=== PATIENT | male | born 1960 | race Caucasian/White ===

== ENCOUNTER 2017-04-16 13:15 | Emergency (ER) | payer MEDICARE, MEDICAID ==
[2017-04-16] MEDS ORDERED: Dexamethasone 10 MG/ML VIAL ONE (16:24)
--- NOTE | 2017-04-16 17:51 | RAD ---
FRONTAL VIEW CHEST 04/16/17 COMPARISON: 07/19/16 INDICATION: Cough. FINDINGS: The cardiac silhouette is prominent. There is no consolidation or effusion. Mild interstitial promine nce is present. Osseous degenerative change present. IMPRESSION: 1. Prominent cardiac silhouette. 2. Mild interstitial prominence could relate to edema or interstitial lung disease. Correlate cl inically. POS: [facility]
--- NOTE | 2017-04-24 17:46 | EKG ---
Test Reason : Blood Pressure : / mmHG Vent. Rate : 057 BPM Atrial Rate : 057 BPM P-R Int : 196 ms QRS Dur : 102 ms QT Int : 428 ms P-R-T Axes : 062 -07 015 degrees QTc Int : 416 ms Sinus bradycardia with Premature atrial complexes Incomplete right bundle branch block Borderline ECG Confirmed by ALLY STEWARD, JULIANNA ([id number]), editor index RIN BLANCO ([id number]) on 04/24/2017 5:45:50 PM Referred By: Confirmed By:JULIANNA CANALES MD
== END 2017-04-16 18:05 | disposition home or self-care (01) ==
LOC: ERS 13:15
DX: J20.9 Acute bronchitis, unspecified (principal); E11.9 Type 2 diabetes mellitus without complications; F32.9 Major depressive disorder, single episode, unspecified; F41.9 Anxiety disorder, unspecified; I10 Essential (primary) hypertension; I48.91 Unspecified atrial fibrillation
CPT/HCPCS: 71045; 93005; 94640; 96372; J1100; J7620

== ENCOUNTER 2017-08-11 21:46 | Inpatient (IN) | payer MEDICARE, MEDICAID ==
[~2017-08-11 21:46] MED LIST: ISOVUE-370 76%-LOCM 1 ML ONE
[2017-08-11] MEDS ORDERED: Promethazine HCl 25 MG/ML VIAL ONE (22:17)
[2017-08-11] MEDS ORDERED: diphenhydrAMINE 50 MG/ML VIAL ONE (22:18)
[2017-08-11] MEDS ORDERED: methylPREDNISolone Sod Succ/PF 125 MG/2 ML VIAL ONE (22:18)
[2017-08-11] MEDS ORDERED: Water For Inject, Bacteriostat 30 ML ONE (22:20)
[2017-08-11 22:23] LABS: #Basophils 0.1 thou/uL (0.0-0.2); #Eosinphils 0.3 thou/uL (0.0-0.7); #Lymphocytes 1.6 thou/uL (1.20-3.40); #Neutrophils 9.2 thou/uL (1.40-6.50); %Basophils 0.4 % (0.0-1.0); %Eosinophils 2.4 % (0.0-10.0); %Lymphocytes 12.9 % (21.0-51.0); %Monocytes 8.4 % (0.0-10.0); %Neutrophils 75.9 % (42.0-75.0); Hemoglobin 11.5 g/dL (14.0-18.0); Mean Corpuscular HGB CONC 33.4 g/dL (32.0-36.0); Mean Corpuscular Hemoglobin 29.7 pg (27.0-31.0); Mean Corpuscular Volume 89.1 fl (80.0-94.0); Mean Platelet Volume 9.3 fL (7.4-10.4); Platelet Count 208 thou/uL (130-400); RBC Distribution Width 14.3 % (11.5-14.5); Red Blood Cell (RBC) Count 3.86 mill/uL (4.70-6.10); White Blood Cell (WBC) Count 12.1 thou/uL (4.8-10.8)
--- NOTE | 2017-08-11 22:28 | RAD ---
AP CHEST: 08/11/17 HISTORY: Shortness of breath. COMPARISON: 04/16/17. FINDINGS/IMPRESSION: Heart size is upper normal and table. Vascular markings upper normal and stable. No infiltrate, effus ion, or other acute process. No interval change noted. POS: [facility]
--- NOTE | 2017-08-11 22:30 | RAD ---
NECK FOR SOFT TISSUES: 08/11/17 Two views. HISTORY: Swelling of tongue according to history. On the lateral view, the epiglottis appears mildly edematous. This does appear to produce some airway narrowing at the epiglottis. Degenerative changes in the spine. No other abnormality. Prevertebral soft tissues normal. IMPRESSION: Evidence of mildly edematous epiglottis. POS: [facility]
[2017-08-11 22:43] LABS: ALT (SGPT) 19 U/L (8-55); AST (SGOT) 17 U/L (5-34); Alkaline Phosphatase 68 U/L (40-150); Anion Gap 14 mmol/L (10-20); BUN (Urea Nitrogen) 19 mg/dL (8.4-25.7); Bilirubin, Total 0.4 mg/dL (0.2-1.2); CK (CPK) 300 U/L (30-200); Calc. Creatinine Clearance 0 mL/min (70-130); Calcium 8.6 mg/dL (7.8-10.44); Carbon Dioxide 27 mmol/L (22-29); Chloride 102 mmol/L (98-107); Estimated GFR-MDRD 57; Globulin 3.5 g/dL (2.4-3.5); Glucose 143 mg/dL (70-105); Potassium 3.4 mmol/L (3.5-5.1); Protein, Total 7.5 g/dL (6.0-8.3); Sodium 140 mmol/L (136-145)
--- NOTE | 2017-08-12 00:29 | PDOC.FPRHP ---
- History of Present Illness Chief Complaint: bloody vomit History of Present Illness: This is a 56 yo M being admitted for epiglottitis who comes in for cheif complaint of bloody vomit which per his report started suddenly at 1830 tonight. He has a PMH including HTN, HLD, afib, and GERD. Patient does have an intellectual delay. Per ED physician's report, when the patient presented to the ED he has notable stridor and increased work of breath. His tongue was swollen to the roof of his mouth. Patient denies being more than "a little" short of breath. ED physician state he was able to identify a small knick where the patient bit is tongue which seems to be the source of the bleeding. The patient states nothing like this has happened before. He denies any new foods or medications recently. He is on lisinopril. He denies being around anyone sick. Denies fevers, nausea, vomiting, or diarrhea prior to 1830 tonight. He states he has had some chills and sweats since this occurred. ED Course: 125 methylprednisolone benadryl racemic epi levoquin Initially patient could not speak. After steroids and racemic epi patient was able to speak. At time of author's exam patient was speaking easily in complete sentences. Soft tissue x-ray showed epiglottis. CT neck pending. ENT states no need to scope at this time but should be monitored closely. Anesthesia is made aware of difficult airway. - Allergies/Adverse Reactions Allergies Allergy/AdvReac Type Severity Reaction Status Date / Time Penicillins Allergy Unknown Verified 08/07/12 02:30 - Home Medications Medication Instructions Recorded Confirmed Type Apresoline 100 mg PO TID 08/07/12 08/07/12 History Bupropion 150 mg PO BID 08/07/12 08/07/12 History Buspirone HCl 5 mg PO BID 08/07/12 08/07/12 History Coreg 50 mg PO BID 08/07/12 08/07/12 History Lisinopril 40 mg PO BID 08/07/12 08/07/12 History Pravastatin Sodium 20 mg PO DAILY 08/07/12 08/07/12 History Tricor 48 mg PO DAILY 08/07/12 08/07/12 History Aspirin [Aspirin Chewable] 81 mg PO DAILY 08/09/12 08/09/12 History Loratadine [Alavert] 10 mg PO DAILY 08/09/12 08/09/12 History Pantoprazole [Protonix] 40 mg PO DAILY 08/09/12 08/09/12 History metFORMIN HCl 500 mg PO BID-WM 08/09/12 08/09/12 History - History PMHx: HTN, HLD, DM, Afib, Right bundle branch block, GERD PSHx: afib ablation x3, cath x2 with no stents, echo 3 days ago w/ Dr. Zamudio FHx: adopted Social: no smoking, alcohol, or drugs - Review of Systems General: reports: fever/chills (chills no fever). denies: fatigue Eyes: denies: vision changes ENT: denies: nasal congestion Respiratory: reports: shortness of breath. denies: cough, exercise intolerance Cardiovascular: denies: chest pain, palpitation, edema, orthopnea Gastrointestinal: reports: vomiting ("bloody vomit"). denies: nausea, diarrhea , constipation, abdominal pain Genitourinary: denies: incontinence, dysuria Skin: denies: rashes Musculoskeletal: denies: pain Neurological: denies: numbness, weakness Psychological: denies: anxiety, depression - Vital signs BP: 173/95 HR: 72 RR: 17 Tmax: 98.3 Pox: 96% on RA, 100% on 2L Wt: 113.4 - Physical Exam Constitutional: NAD, awake, alert and oriented -Constitutional: speaking in complete sentences, no increased work of breathing HEENT: normocephalic and atraumatic, PERRLA -HEENT: tongue is swollen, fills mouth, does not touch roof of mouth, unable to appreciate tonsils, neck is noticably swollen to palpatin, non-tender, not warm to touch, no redness Heart: RRR -Heart: 2/6 murmur noted Lungs: CTAB, no respiratory distress, good air movement, no rales/rhonchi, no wheezing -Lungs: not distressed, clear bilaterally at time of author's exam Abdomen: soft, non-tender, bowel sounds present Musculoskeletal: normal structure, ROM grossly normal Neurological: no focal deficit Skin: no rash/lesions, capillary refill <2 seconds FMR H&P: Results - Labs Result Diagrams: 08/11/17 22:18 08/11/17 22:18 Lab results: WBC 12.1 thou/uL (4.8-10.8) H 08/11/17 22:18 Hgb 11.5 g/dL (14.0-18.0) L 08/11/17 22:18 Hct 34.4 % (42.0-52.0) L 08/11/17 22:18 MCV 89.1 fl (80.0-94.0) 08/11/17 22:18 Plt Count 208 thou/uL (130-400) 08/11/17 22:18 Neutrophils % 75.9 % (42.0-75.0) H 08/11/17 22:18 Sodium 140 mmol/L (136-145) 08/11/17 22:18 Potassium 3.4 mmol/L (3.5-5.1) L 08/11/17 22:18 Chloride 102 mmol/L (98-107) 08/11/17 22:18 Carbon Dioxide 27 mmol/L (22-29) 08/11/17 22:18 BUN 19 mg/dL (8.4-25.7) 08/11/17 22:18 Creatinine 1.30 mg/dL (0.6-1.3) 08/11/17 22:18 Glucose 143 mg/dL (70-105) H 08/11/17 22:18 Calcium 8.6 mg/dL (7.8-10.44) 08/11/17 22:18 Total Bilirubin 0.4 mg/dL (0.2-1.2) 08/11/17:18 AST 17 U/L (5-34) 08/11/17:18 ALT 19 U/L (8-55) 08/11/17 22:18 Alkaline Phosphatase 68 U/L (40-150) 08/11/17 22:18 Creatine Kinase 300 U/L (30-200) H 08/11/17 22:18 Serum Total Protein 7.5 g/dL (6.0-8.3) 08/11/17 22:18 Albumin 4.0 g/dL (3.5-5.0) 08/11/17 22:18 FMR H&P: A/P - Problem List (1) Epiglottitis Current Visit: Yes Status: Acute Code(s): J05.10 - ACUTE EPIGLOTTITIS WITHOUT OBSTRUCTION (2) Swollen tongue Current Visit: Yes Status: Acute Code(s): R22.0 - LOCALIZED SWELLING, MASS AND LUMP, HEAD (3) HTN (hypertension) Current Visit: Yes Status: Acute Code(s): I10 - ESSENTIAL (PRIMARY) HYPERTENSION (4) HLD (hyperlipidemia) Current Visit: Yes Status: Acute Code(s): E78.5 - HYPERLIPIDEMIA, UNSPECIFIED (5) Obesity Current Visit: Yes Status: Acute Code(s): E66.9 - OBESITY, UNSPECIFIED (6) Atrial fib/flutter, transient Current Visit: Yes Status: Acute Code(s): LKW0981 - (7) GERD (gastroesophageal reflux disease) Current Visit: Yes Status: Acute Code(s): K21.9 - GASTRO-ESOPHAGEAL REFLUX DISEASE WITHOUT ESOPHAGITIS (8) Intellectual disability Current Visit: Yes Status: Acute Code(s): F79 - UNSPECIFIED INTELLECTUAL DISABILITIES - Plan # Epiglottitis - noted on soft tissue x-ray - CT read pending, no abscess noted on author's read - vanc, rocephin - blood cultures - Methylprednisolone 125mg q24 hrs - racemic epi q3 hrs PRN - IV benadryl 50mg q3 hrs scheduled overnight - Spoke to Dr. Clifford ENT from ED, states no need to scope now, monitor closely will see in the AM - Anesthesia made aware of difficult airway # Impaired airway 2/2 Swollen tongue - likely 2/2 to above - breathing comfortably at this time - differential includes: allergy, angioedema 2/2 lisinopril, infection - likely 2/2 infection - ENT to eval in morning # HTN - hydralazine PRN - holding home meds 2/2 NPO # HLD - holding home meds 2/2 NPO # DM - SSI for now - holding home metformin, glipizide 2/2 NPO # A fib s/p ablation - monitor - RRR at time of exam, not on anticoagulant - follows w/ Dr. Zamudio, had appointment 3 days ago # Gerd - hold home meds for now Fluids: NS 150ml/hr Diet: NPO Code: full Dispo: >48 hours FMR H&P: Upper Level - Pertinent history 56 yo M with PMH significant for HTN, mild MR, chronic A. fib/flutter s/p ablation presents with bloody sputum. Patient states he bit his tongue and started coughing up blood. Patient was audibly stridorous in the ER on arrival , was given steroids, racemic epinephrine, and benadryl and appeared to improve. Does not appear to currently be on any blood thinners. Patient is on lisinopril currently. Lateral neck film showed epiglottitis. - Pertinent findings PE: Gen: [place] male in NAD HEENT: PERRL, EOMI, MMM, enlarged tongue, unable to visualize tonsils CV: RRR no murmurs, distal pulses intact Pulm: CTAB, no wheezes or rhonchi Abd: soft, NT/ND, BS present, no masses Ext: no cyanosis or edema MSK: OAK[place] well, no joint or muscle pain or swelling Neuro: CN 2-12 intact, normal sensation Skin: no rashes or lesions Psych: A&O x3, appropriate in conversation - Plan Date/Time: 08/12/17 0028 56 yo M here with neck and tongue swelling. 1) Epiglottitis: Admit to IMCU. ENT consulted in ER, will see him in the AM unless things worsen acutely overnight. Monitor saturations and airway noises. Continue solumedrol daily, racemic epi and benadryl prn. 2) Angioedema: Discontinue lisinopril. Could also possibly be due to biting his tongue earlier this evening. 3) HTN: Hold all po home meds at this time. 4) HLD: as above 5) Chronic A. fib/flutter: as above, monitor on tele, currently rate-controlled I, [Ashwin Tucker], have evaluated this patient and agree with findings/plan as outlined by regulatory intern resident. Pertinent changes/additions are listed here.
[2017-08-12] MEDS ORDERED: Sodium Chloride 0.9% 1,000 ML IV SCH (01:19)
[2017-08-12] MEDS ORDERED: Acetaminophen 325 MG TAB PO PRN (01:19)
[2017-08-12] MEDS ORDERED: Ondansetron ODT 4 MG TAB SL PRN (01:19)
[2017-08-12] MEDS ORDERED: Ondansetron HCl/PF 4 MG/2 ML Vial IVP PRN (01:19)
[2017-08-12] MEDS ORDERED: diphenhydrAMINE 50 MG in Sodium Chloride 0.9% 50 ML IVPB SCH (01:45)
[2017-08-12] MEDS ORDERED: HumaLOG 300 UNITS/3 ML VIAL SC PRN (01:45)
[2017-08-12] MEDS ORDERED: Dextrose 5% in Water 1,000 ML IV PRN (01:45)
[2017-08-12] MEDS ORDERED: hydrALAZINE 20 MG/ML VIAL SLOW IVP PRN (01:45)
[2017-08-12] MEDS ORDERED: Dextrose 50% Abboject 50 ML SYRINGE SLOW IVP PRN (01:45)
[2017-08-12] MEDS ORDERED: Enoxaparin Sodium 40 MG/0.4 ML SYRINGE SC SCH (01:45)
[2017-08-12 01:48] VITALS: BMI 41.5
[2017-08-12] MEDS: Sodium Chloride 0.9% 1,000 ML IV SCH ×4 (02:12→20:52)
[2017-08-12] MEDS: diphenhydrAMINE 50 MG/ML VIAL IVP SCH ×3 (02:12→09:51)
[2017-08-12] MEDS ORDERED: cefTRIAXone\\ROCEPHIN 1 GM in Sodium Chloride 0.9% 100 ML IVPB SCH (03:00)
[2017-08-12 05:20] LABS: Anion Gap 14 mmol/L (10-20); BUN (Urea Nitrogen) 17 mg/dL (8.4-25.7); Calc. Creatinine Clearance 127 mL/min (70-130); Calcium 8.5 mg/dL (7.8-10.44); Carbon Dioxide 26 mmol/L (22-29); Chloride 101 mmol/L (98-107); Estimated GFR-MDRD 62; Glucose 208 mg/dL (70-105); Potassium 3.3 mmol/L (3.5-5.1); Sodium 138 mmol/L (136-145)
--- NOTE | 2017-08-12 06:25 | PDOC.EVN ---
Event Note - Event Note Event Note: 0340 Stopped by to check on patient Sleeping comfortable, not snoring or stridorous Easily aroused, states he feels comfortable CTAB, no increased work of breathing Tongue appeared same or slightly larger than in ED Asked for RT to be paged to repeat epi neb 0620 Stopped by to check on patient sleeping comfortably, not snoring or stridorous easily arousable, states he feels comfortable, states he feels swelling is improving tongue appears slightly smaller than last exam, still not able to visualize tonsils but able to see more of palate CTAB, no stridor or increased work of breathing
[2017-08-12] MEDS ORDERED: methylPREDNISolone Sod Succ/PF 125 MG/2 ML VIAL IVP SCH ×3 (06:47→09:00)
[2017-08-12 06:59] LABS: Band 6 % (5-11); Hemoglobin 11.6 g/dL (14.0-18.0); Lymphocytes 8 % (21-51); MDiff Complete? YES; Mean Corpuscular HGB CONC 33.9 g/dL (32.0-36.0); Mean Corpuscular Hemoglobin 30.1 pg (27.0-31.0); Mean Corpuscular Volume 88.9 fl (80.0-94.0); Mean Platelet Volume 9.5 fL (7.4-10.4); Monocytes 2 % (0-10); Neutrophil 84 % (42-75); PLT Morphology Comment Appears Adequate; Platelet Count 194 thou/uL (130-400); RBC Distribution Width 14.2 % (11.5-14.5); RBC Morphology Normal; Red Blood Cell (RBC) Count 3.85 mill/uL (4.70-6.10); White Blood Cell (WBC) Count 16.2 thou/uL (4.8-10.8)
--- NOTE | 2017-08-12 07:21 | CT ---
CT NECK WITH CONTRAST: Multiple axial tomograms were obtained through the neck with IV enhancement. INDICATION: Tongue and neck swelling. FINDINGS: Parotid glands appear unremarkable. The submandibular glands show mild heterogeneity and surrounding edema. There is subcutaneous edema seen in the midline of the neck below the mandible. The nasopharynx shows prominence of the pharyngeal tonsils. The oropharynx is obscured by dental appliance artifact and the tongue cannot be well evaluated. Wal deyer's ring appears mildly prominent at the level of the palatine tonsils. The base of the tongue i ncluding the genu glossis and genu hyoid and mylohyoid muscles appear unremarkable; however, there is edema seen within the planes of these muscles. There is also edema seen in the hypopharynx with edema seen in the region of the vallecula. The epig lottis is edematous. There is edema in the region of the aryepiglottic folds. Pyriform sinuses are e ffaced. The airway is narrowed at this location. The parapharyngeal space shows some mild edema at the level of the oropharynx and hypopharynx. Review of the lymph node levels shows no evidence of significant adenopathy. Nonspecific level II ju gulodigastric nodes are seen bilaterally measuring up to 1 cm. There is opacification of the left maxillary sinus. The other paranasal sinuses are well aerated. T hyroid is unremarkable. Lung apices appear clear. IMPRESSION: Edema seen in the muscle planes of the tongue and base of tongue and there is edema in the parapharyn geal space and edema at the hypopharynx with edematous vallecula, pyriform sinuses, and epiglottis. There is narrowing of the airway within the hypopharynx. Allergic reaction or angioedema would be mo st likely. POS: [facility]
[2017-08-12] MEDS ORDERED: Vancomycin HCl 1.5 GM in Sodium Chloride 0.9% 250 ML 300 ML IVPB SCH (09:00)
[2017-08-12] MEDS: methylPREDNISolone Sod Succ/PF 125 MG/2 ML VIAL IVP SCH ×2 (12:40→17:46)
[2017-08-12] MEDS ORDERED: Pantoprazole 40 MG VIAL IVP SCH (21:00)
--- NOTE | 2017-08-12 22:57 | CON ---
DATE OF SERVICE: 08/12/2017 HISTORY OF PRESENT ILLNESS: Mr. Urrutia is a 56-year-old male who says that he started noticing sore throat yesterday. He has been started feeling like his tongue was swelling, so he came to the emergency room. Per the emergency records and H&P said the patient apparently bit his tongue, but he denies that. He says he is feeling much better. PAST MEDICAL HISTORY: 1. Remarkable for hypertension treated with an ELVIS inhibitor 2. History of diabetes. 3. History of atrial fibrillation. 4. History of reflux disease. 5. History of multiple atrial fibrillation ablations. 6. History of several cardiac catheterizations. FAMILY HISTORY: He is adopted. SOCIAL HISTORY: He is nonsmoker and nondrinker. REVIEW OF SYSTEMS: Otherwise negative 10 point at this time. PHYSICAL EXAMINATION: GENERAL: He is in no distress. VITAL SIGNS: He is afebrile, heart rate 82, respiratory rate 16, oximetry is 93% on room air, blood pressure 160/100. HEENT: Pupils are equal. Sclerae is anicteric. His tongue is not swollen now. NECK: Supple, no lymphadenopathy. LUNGS: Clear. HEART: Regular rhythm. S1 and S2 are normal. ABDOMEN: Soft and nontender. EXTREMITIES: Without clubbing, cyanosis, or edema. LABORATORY DATA: White count 16.2, hemoglobin 11.6, platelets 194. Electrolytes were unremarkable. IMPRESSION: ? angioedema. His symptoms are resolving. An angiotensin receptor ryan may be a better choice for him since he has diabetes. He was admitted with diagnosis of epiglottitis, but clinically he is doing well at this time with no symptoms. He says an ear, nose, and throat doctor looked in his throat, but did not find any documen tation of this. His CT of his neck was suggestive of angioedema. In any event, he is stable to move out of the intermediate care unit. We will see him as needed in t he future.
[2017-08-13] MEDS: methylPREDNISolone Sod Succ/PF 125 MG/2 ML VIAL IVP SCH ×2 (00:31→05:40)
[2017-08-13] MEDS: Sodium Chloride 0.9% 1,000 ML IV SCH ×2 (01:57→11:30)
[2017-08-13 04:39] VITALS: TEMP 97.7
[2017-08-13 07:23] VITALS: BP 148/67
[2017-08-13] MEDS ORDERED: Pantoprazole 40 MG VIAL IVP SCH (09:00)
--- NOTE | 2017-08-13 09:05 | PDOC.FM ---
- Subjective Subjective: Patient states he despite being NPO drank water yesterday and had no difficulty with it. States he feels well, with no fever, chills SOB, or cough. - Objective MAR Reviewed: Yes Vital Signs & Weight: Vital Signs (12 hours) Temp Pulse Resp BP BP Pulse Ox 08/13/17 07:35 97.7 F 60 16 08/13/17 07:22 97.7 F 60 16 148/67 H 93 L 08/13/17 04:00 97.7 F 71 18 157/69 H 95 08/13/17 00:00 98.1 F 77 18 156/67 H 94 L Weight Weight 131.224 kg I&O: 08/12/17 08/13/17 08/14/17 06:59 06:59 06:59 Intake Total 850 1003 Output Total 500 Balance 350 1003 Result Diagrams: 08/12/17 04:50 08/12/17 04:50 <Apolinar Altman M - Last Filed: 08/13/17 09:01> - Objective Vital Signs & Weight: Vital Signs (12 hours) Temp Pulse Resp BP BP Pulse Ox 08/13/17 07:35 97.7 F 60 16 08/13/17 07:22 97.7 F 60 16 148/67 H 93 L 08/13/17 04:00 97.7 F 71 18 157/69 H 95 08/13/17 00:00 98.1 F 77 18 156/67 H 94 L Weight Weight 131.224 kg I&O: 08/12/17 08/13/17 08/14/17 06:59 06:59 06:59 Intake Total 850 1003 Output Total 500 Balance 350 1003 Result Diagrams: 08/12/17 04:50 08/12/17 04:50 <Edd Ayoub A - Last Filed: 08/13/17 10:53> Phys Exam - Physical Examination Constitutional: NAD HEENT: moist MMs Neck: no nodes, supple Respiratory: no wheezing, no rales Cardiovascular: RRR, no rub 2/6 systolic murmur. Gastrointestinal: soft Musculoskeletal: no edema Neurological: non-focal, moves all 4 limbs Lymphatic: no nodes Psychiatric: normal affect Skin: no rash <Apolinar Altman M - Last Filed: 08/13/17 09:01> Dx/Plan (1) Angioedema Code(s): T78.3XXA - ANGIONEUROTIC EDEMA, INITIAL ENCOUNTER Status: Acute Plan: Likely due to lisinopril. Plan, hold lisinopril. Rest for 5-6 weeks. Then consider starting an ARB. Will stop steroid and benedryl. Has been seen by ENT who cleared him of other etiologies of his swollen tongue/edema. (2) GERD (gastroesophageal reflux disease) Code(s): K21.9 - GASTRO-ESOPHAGEAL REFLUX DISEASE WITHOUT ESOPHAGITIS Status: Acute Plan: Continue pantoprazole and transition to PO when cleared by speech. Chronic known issue on admission. (3) HLD (hyperlipidemia) Code(s): E78.5 - HYPERLIPIDEMIA, UNSPECIFIED Status: Acute Plan: Chronic issue. Hold PO medication at this time. (4) HTN (hypertension) Code(s): I10 - ESSENTIAL (PRIMARY) HYPERTENSION Status: Acute Plan: Holding medication at this time. However, BP is within normal limit at this time. (5) Obesity Code(s): E66.9 - OBESITY, UNSPECIFIED Status: Acute Plan: vp security patient. Advise patient to follow up as outpatient. (6) Paroxysmal A-fib Code(s): I48.0 - PAROXYSMAL ATRIAL FIBRILLATION Status: Acute Plan: s/p ablation. Sees Dr. Martínez. Not on anticoagulation post ablation. <Apolinar Altman M - Last Filed: 08/13/17 09:01> Attending Addendum - Attending Addendum Date/Time: 08/13/17 1052 I personally evaluated the patient and discussed the management with Dr. Altman. I agree with the History, Examination, Assessment and Plan documented above with any addition or exceptions noted below. Passed bedside swallow eval. Plan for discharge today. <Edd Ayoub A - Last Filed: 08/13/17 10:53>
== END 2017-08-13 13:29 | disposition home or self-care (01) | DRG 153 ==
LOC: ERS 21:46 → IMCU/EMU 23:39 → T4-A 08-12 11:52
PROVIDERS: ADMIT Family Medicine; ATTEND Family Medicine
DX: J05.10 Acute epiglottitis without obstruction (principal); Z68.41 Body mass index [BMI] 40.0-44.9, adult; I48.92 Unspecified atrial flutter; I10 Essential (primary) hypertension; E78.5 Hyperlipidemia, unspecified; K21.9 Gastro-esophageal reflux disease without esophagitis; F81.9 Developmental disorder of scholastic skills, unspecified; E11.9 Type 2 diabetes mellitus without complications; E66.9 Obesity, unspecified; T78.3XXA Angioneurotic edema, initial encounter; I48.2 Chronic atrial fibrillation; I48.0 Paroxysmal atrial fibrillation
CPT/HCPCS: 36415; 36416; 70360; 70492; 71045; 80048; 80053; 82550; 85025; 86850; 86900; 86901; 87040; 87081; 87430; 93005; 94640; 96365; 96367; 96375; A4216; C9113; J0696; J1200; J1650; J1956; J2550; J2930; J3370; J7050

== ENCOUNTER 2017-09-15 09:05 | Outpatient (CLI) | payer MEDICARE, MEDICAID ==
--- NOTE | 2017-09-15 10:19 | RAD ---
2 VIEWS CHEST: Date: 09/15/17 COMPARISON: 08/11/17. HISTORY: Dyspnea. FINDINGS: Two views of the chest show an enlarged but stable cardiomediastinal silhouette. There is no evidence of consolidation, mass, or pleural effusion. Degenerative changes are seen in the spine. IMPRESSION: No evidence of acute cardiopulmonary disease. POS: [facility]
== END 2017-09-15 09:06 | disposition home or self-care (01) ==
LOC: RAD 09:05
PROVIDERS: ATTEND Internal Medicine Critical Care Medicine
DX: R06.00 Dyspnea, unspecified (principal)
CPT/HCPCS: 71046

== ENCOUNTER 2017-10-30 07:29 | Emergency (ER) | payer MEDICARE, MEDICAID | END 2017-10-30 07:56 | disposition home or self-care (01) | LOC: ERS 07:29 | DX: J32.0 Chronic maxillary sinusitis (principal); I48.91 Unspecified atrial fibrillation; E11.9 Type 2 diabetes mellitus without complications; I10 Essential (primary) hypertension; F41.9 Anxiety disorder, unspecified; F32.9 Major depressive disorder, single episode, unspecified; Z79.84 Long term (current) use of oral hypoglycemic drugs; Z79.899 Other long term (current) drug therapy | CPT/HCPCS: 99283 ==

== ENCOUNTER 2017-10-30 08:49 | Emergency (ER) | payer MEDICARE, MEDICAID ==
[2017-10-30] MEDS ORDERED: Ondansetron HCl/PF 4 MG/2 ML Vial ONE (09:05)
[2017-10-30 09:22] LABS: #Basophils 0.3 thou/uL (0.0-0.2); #Eosinphils 0.3 thou/uL (0.0-0.7); #Lymphocytes 0.6 thou/uL (1.20-3.40); #Monocytes 1.2 thou/uL (0.11-0.59); #Neutrophils 12.7 thou/uL (1.40-6.50); %Basophils 1.8 % (0.0-1.0); %Lymphocytes 3.9 % (21.0-51.0); %Neutrophils 84.4 % (42.0-75.0); Hemoglobin 10.8 g/dL (14.0-18.0); Mean Corpuscular HGB CONC 34.3 g/dL (32.0-36.0); Mean Corpuscular Hemoglobin 30.2 pg (27.0-31.0); Mean Corpuscular Volume 88.2 fL (78.0-98.0); Mean Platelet Volume 8.7 fL (7.4-10.4); Platelet Count 173 thou/uL (130-400); RBC Distribution Width 14.6 % (11.5-14.5); Red Blood Cell (RBC) Count 3.56 mill/uL (4.70-6.10); White Blood Cell (WBC) Count 15.1 thou/uL (4.8-10.8)
[2017-10-30 09:38] LABS: ALT (SGPT) 18 U/L (8-55); AST (SGOT) 16 U/L (5-34); Albumin 3.8 g/dL (3.5-5.0); Alkaline Phosphatase 78 U/L (40-150); Anion Gap 14 mmol/L (10-20); BUN (Urea Nitrogen) 14 mg/dL (8.4-25.7); Bilirubin, Total 0.6 mg/dL (0.2-1.2); Calc. Creatinine Clearance 0 mL/min (70-130); Calcium 7.9 mg/dL (7.8-10.44); Carbon Dioxide 27 mmol/L (22-29); Chloride 99 mmol/L (98-107); Estimated GFR-MDRD 68; Globulin 3.6 g/dL (2.4-3.5); Glucose 164 mg/dL (70-105); Protein, Total 7.4 g/dL (6.0-8.3); Sodium 137 mmol/L (136-145)
[2017-10-30 09:41] LABS: CKMB 1.5 ng/mL (0-6.6); Troponin I 0.032 ng/mL (< 0.028)
[2017-10-30] MEDS ORDERED: Dicyclomine 20 MG TAB ONE (09:44)
[2017-10-30] MEDS ORDERED: ISOVUE-370 76%-LOCM 1 ML ONE (10:49)
--- NOTE | 2017-10-30 10:55 | RAD ---
ACUTE ABDOMINAL SERIES: Date: 10/30/17 INDICATION: Vomiting and nausea. IMPRESSION: There are a few gas and fluid-filled loops of small bowel with differential air fluid levels seen wit hin the central abdomen which can be seen with regional ileus or mild partial small bowel obstruction . Gas is present within the rectum and colon. No definite pneumoperitoneum is evident. There is mild cardiomegaly without evidence of cardiac decompensation. No pneumothorax is evident. There is scatter ed degenerative change. POS: [facility]
[2017-10-30] MEDS ORDERED: cloNIDine 0.1 MG TAB ONE (11:06)
--- NOTE | 2017-10-30 11:55 | CT ---
CT OF ABDOMEN AND PELVIS PERFORMED WITH CONTRAST ENHANCEMENT: Date: 10/30/17 HISTORY: Abdominal pain, nausea and vomiting. FINDINGS: The lung bases are clear of infiltrates. 5.0 mm left lower lobe pulmonary nodule incidentally seen. There are diffuse fatty changes of the liver, which measures 19.4 cm in length. The spleen is within normal limits of size at 12.0 cm. Pancreas and gallbladder regions are unremarkable. Right and left adrenal glands, and right and left kidneys are normal in appearance. There is no signi ficant periaortic or mesenteric lymphadenopathy. No free fluid seen. No signs of obstruction. CT of pelvis was performed with contrast enhancement. No adenopathy or mass. No free fluid. The appen tsering is unremarkable. Small, fat-containing periumbilical hernia is noted. There are arthritic changes of the spine. IMPRESSION: 1. Fatty changes of the liver, which is borderline in size. 2. No acute abnormalities of the abdomen or pelvis. POS: [facility]
--- NOTE | 2017-11-06 20:21 | EKG ---
Test Reason : Blood Pressure : / mmHG Vent. Rate : 067 BPM Atrial Rate : 067 BPM P-R Int : 192 ms QRS Dur : 096 ms QT Int : 410 ms P-R-T Axes : 000 -34 -13 degrees QTc Int : 433 ms Normal sinus rhythm Left axis deviation Incomplete right bundle branch block Abnormal ECG Confirmed by JEROMY WILKINS ([id number]), research editor RIN BLANCO ([id number]) on 11/06/2017 8:20:46 PM Referred By: Confirmed By:JERMOY WILKINS
== END 2017-10-30 12:05 | disposition home or self-care (01) ==
LOC: ERS 08:49
DX: R11.2 Nausea with vomiting, unspecified (principal); I48.91 Unspecified atrial fibrillation; E11.9 Type 2 diabetes mellitus without complications; I10 Essential (primary) hypertension; F41.9 Anxiety disorder, unspecified; F32.9 Major depressive disorder, single episode, unspecified; Z79.84 Long term (current) use of oral hypoglycemic drugs; Z79.899 Other long term (current) drug therapy; Z79.82 Long term (current) use of aspirin
CPT/HCPCS: 36415; 74022; 74177; 80053; 82553; 84484; 85025; 93005; 96361; 96374; J2405

== ENCOUNTER 2017-12-05 20:30 | Outpatient (CLI) | payer MEDICARE, MEDICAID | END 2017-12-05 20:31 | disposition home or self-care (01) | LOC: SLEEPLAB 20:30 | PROVIDERS: ATTEND Internal Medicine Critical Care Medicine | DX: G47.33 Obstructive sleep apnea (adult) (pediatric) (principal); K21.9 Gastro-esophageal reflux disease without esophagitis; E66.9 Obesity, unspecified; Z68.41 Body mass index [BMI] 40.0-44.9, adult | CPT/HCPCS: 95811 ==

== ENCOUNTER 2018-02-19 18:47 | Emergency (ER) | payer MEDICARE, MEDICAID ==
--- NOTE | 2018-02-19 19:25 | RAD ---
CHEST TWO VIEWS: 02/19/18 HISTORY: Shortness of breath. COMPARISON: 07/19/16 exam. Heart size and mediastinum are within normal limits. The lungs are clear of infiltrates. There are ar thritic changes of the spine. IMPRESSION: No active intrathoracic disease. POS: [facility]
== END 2018-02-19 20:51 | disposition home or self-care (01) ==
LOC: ERS 18:47
DX: J20.9 Acute bronchitis, unspecified (principal); I48.91 Unspecified atrial fibrillation; F41.9 Anxiety disorder, unspecified; F32.9 Major depressive disorder, single episode, unspecified; I10 Essential (primary) hypertension; Z79.82 Long term (current) use of aspirin; Z79.899 Other long term (current) drug therapy; Z79.84 Long term (current) use of oral hypoglycemic drugs
CPT/HCPCS: 71046; 94640; J7620

== ENCOUNTER 2018-02-28 18:12 | Emergency (ER) | payer MEDICARE, MEDICAID ==
[2018-02-28 20:13] LABS: #Eosinphils 0.1 thou/uL (0.0-0.7); #Lymphocytes 1.1 thou/uL (1.20-3.40); #Neutrophils 11.5 thou/uL (1.40-6.50); %Basophils 0.2 % (0.0-1.0); %Eosinophils 0.6 % (0.0-10.0); %Monocytes 7.3 % (0.0-10.0); Hemoglobin 11.6 g/dL (14.0-18.0); Mean Corpuscular HGB CONC 33.2 g/dL (32.0-36.0); Mean Corpuscular Volume 87.2 fL (78.0-98.0); Mean Platelet Volume 9.3 fL (7.4-10.4); Platelet Count 227 thou/uL (130-400); RBC Distribution Width 15.2 % (11.5-14.5); Red Blood Cell (RBC) Count 4.02 mill/uL (4.70-6.10); White Blood Cell (WBC) Count 13.7 thou/uL (4.8-10.8)
--- NOTE | 2018-02-28 20:16 | RAD ---
PA AND LATERAL CHEST X-RAY: 02/28/2018 HISTORY: Cough and congestion. COMPARISON: 02/19/2018 FINDINGS: The cardiac silhouette and pulmonary vasculature are within normal limits. The lungs are clear. The re has been no interval change when compared to the prior exam. IMPRESSION: Stable chest without evidence of an acute cardiopulmonary process. POS: [facility]
[2018-02-28 20:37] LABS: ALT (SGPT) 19 U/L (8-55); AST (SGOT) 16 U/L (5-34); Albumin 3.9 g/dL (3.5-5.0); Alkaline Phosphatase 79 U/L (40-150); Anion Gap 17 mmol/L (10-20); BUN (Urea Nitrogen) 21 mg/dL (8.4-25.7); Bilirubin, Total 0.6 mg/dL (0.2-1.2); Calc. Creatinine Clearance 0 mL/min (70-130); Calcium 8.1 mg/dL (7.8-10.44); Carbon Dioxide 29 mmol/L (22-29); Chloride 95 mmol/L (98-107); Estimated GFR-MDRD 76; Globulin 3.8 g/dL (2.4-3.5); Protein, Total 7.7 g/dL (6.0-8.3); Sodium 138 mmol/L (136-145)
[2018-02-28 20:42] LABS: Potassium 2.8 mmol/L (3.5-5.1)
[2018-02-28] MEDS ORDERED: Potassium Bicarbonate/Cit Ac 25 MEQ TAB ONE ×2 (20:56)
[2018-02-28] MEDS ORDERED: Ondansetron ODT 8 MG TAB ONE (21:06)
[2018-02-28 21:54] LABS: Glucose 125 mg/dL (70-105)
== END 2018-02-28 21:32 | disposition home or self-care (01) ==
LOC: ERS 18:12
DX: J20.9 Acute bronchitis, unspecified (principal); K59.00 Constipation, unspecified; E87.6 Hypokalemia; I48.91 Unspecified atrial fibrillation; E11.9 Type 2 diabetes mellitus without complications; I10 Essential (primary) hypertension; F41.9 Anxiety disorder, unspecified; F32.9 Major depressive disorder, single episode, unspecified; Z79.84 Long term (current) use of oral hypoglycemic drugs; Z79.82 Long term (current) use of aspirin; Z79.899 Other long term (current) drug therapy
CPT/HCPCS: 36415; 71046; 80053; 85025

== ENCOUNTER 2018-06-14 18:42 | Emergency (ER) | payer MEDICARE, MEDICAID | END 2018-06-14 20:06 | disposition home or self-care (01) | LOC: ERS 18:42 | DX: R05 Cough (principal); I48.91 Unspecified atrial fibrillation; E11.9 Type 2 diabetes mellitus without complications; I10 Essential (primary) hypertension; F41.9 Anxiety disorder, unspecified; F32.9 Major depressive disorder, single episode, unspecified | CPT/HCPCS: 87804; 99281 ==

== ENCOUNTER 2018-08-08 19:02 | Inpatient (IN) | payer MEDICARE, MEDICAID ==
[~2018-08-08 19:02] MED LIST changes: +Iopamidol 370 76% 50 ML VIAL FS ONE
[2018-08-08 19:30] LABS: Hemoglobin 10.4 g/dL (14.0-18.0); Mean Corpuscular Hemoglobin 27.1 pg (27.0-31.0); Mean Corpuscular Volume 84.6 fL (78.0-98.0); Mean Platelet Volume 9.4 fL (7.4-10.4); Platelet Count 190 thou/uL (130-400); RBC Distribution Width 15.8 % (11.5-14.5); Red Blood Cell (RBC) Count 3.85 mill/uL (4.70-6.10); White Blood Cell (WBC) Count 15.8 thou/uL (4.8-10.8)
[2018-08-08 19:50] LABS: ALT (SGPT) 13 U/L (8-55); AST (SGOT) 16 U/L (5-34); Alkaline Phosphatase 71 U/L (40-150); Anion Gap 15 mmol/L (10-20); BUN (Urea Nitrogen) 16 mg/dL (8.4-25.7); Bilirubin, Total 0.6 mg/dL (0.2-1.2); Calc. Creatinine Clearance 0 mL/min (70-130); Calcium 8.6 mg/dL (7.8-10.44); Carbon Dioxide 26 mmol/L (22-29); Chloride 98 mmol/L (98-107); Estimated GFR-MDRD 64; Globulin 3.9 g/dL (2.4-3.5); Glucose 134 mg/dL (70-105); Lipase 30 U/L (8-78); Potassium 3.3 mmol/L (3.5-5.1); Protein, Total 7.9 g/dL (6.0-8.3); Sodium 136 mmol/L (136-145)
[2018-08-08 19:51] LABS: Band 13 % (5-11); Lymphocytes 1 % (21-51); MDiff Complete? YES; Monocytes 5 % (0-10); Neutrophil 79 % (42-75); Reactive Lymphocytes 2 % (0-10)
--- NOTE | 2018-08-08 20:11 | RAD ---
EXAM: Single view of the chest HISTORY: Weakness and vomiting COMPARISON: 08/11/2017 FINDINGS: Single view of the chest shows an enlarged but stable cardiomediastinal silhouette. There i s no evidence of consolidation, mass, or pleural effusion. Degenerative changes are seen in the spine. IMPRESSION: No evidence of acute cardiopulmonary disease
[2018-08-08] MEDS ORDERED: Cefepime 1 GM VIAL ONE (20:14)
[2018-08-08] MEDS ORDERED: Ketorolac Tromethamine 30 MG/ML VIAL ONE (20:14)
[2018-08-08] MEDS ORDERED: Morphine 2 MG/ML SYRINGE ONE (20:14)
[2018-08-08] MEDS ORDERED: Ondansetron PF 4 MG/2 ML Vial ONE (20:14)
[2018-08-08 20:46] LABS: Bilirubin Negative (Negative); Blood, Urine Negative (Negative); Clarity CLEAR (Clear); Glucose, Urine (Dipstick) Negative (Negative); Leukocyte Negative (Negative); Nitrite Negative (Negative); Protein, Urine (Dipstick) Trace mg/dL (Neg-Trace); Specific Gravity, Urine 1.021 (1.002-1.036); Urobilinogen 0.2 mg/dL (0.2-1.0)
--- NOTE | 2018-08-08 21:34 | CT ---
CT Abdomen Pelvis W Con: 08/08/2018 7:42 PM CLINICAL INFORMATION: Abdominal pain with nausea, vomiting, and diarrhea COMPARISON: 10/30/2017 TECHNIQUE: Multiple contiguous axial images were obtained and a CT of the abdomen and pelvis with IV contrast. Oral contrast was administered. Coronal reformats were performed. FINDINGS: Lower Chest: within normal limits. Abdomen: Liver: within normal limits. Bile Ducts: Normal caliber. Gallbladder: No calcified gallstones. Normal caliber wall. Pancreas: within normal limits. Spleen: within normal limits. Adrenals: within normal limits. Kidneys: within normal limits. Pelvis: Reproductive Organs: No pelvic masses. Ureters: within normal limits. Bladder: within normal limits. Peritoneum: No ascites or free air, no fluid collection. Bowel: Normal caliber. Mesentery and Retroperitoneum: No enlarged mesenteric or retroperitoneal lymph nodes. Vessels: Normal. Abdominal Wall: within normal limits. Bones: Degenerative changes in the spine. IMPRESSION: No evidence of acute intraabdominal\pelvic abnormality.
--- NOTE | 2018-08-08 22:40 | PDOC.FPRHP ---
- History of Present Illness Chief Complaint: nausea and vomiting History of Present Illness: 57 yo M presents for nausea, vomiting, and diarrhea that started this morning. was sick 10 days ago with similar illness. He has had decreased appetite, headache, and has not been able to eat today. Reports 5 episodes of diarrhea, one with a small streak of bright red blood. He has not taken any medications for his illness. Fever in ED to 101. ED: WBC 15.8, fever 101. Cefepime and vanc ED Course: He received a 500 ml bolus NS in ER. Started on vanc and cefepime and got a dose of zofran. - Allergies/Adverse Reactions Allergies Allergy/AdvReac Type Severity Reaction Status Date / Time Penicillins Allergy Unknown Verified 08/07/12 02:30 lisinopril Allergy Verified 08/09/18 00:20 pneumococcal vaccine Allergy Verified 08/12/17 06:02 [From Pneumovax 23] - Home Medications Medication Instructions Recorded Confirmed Type Aspirin [Ecotrin Regular Strength] 325 mg PO DAILY 08/12/17 08/08/18 History Carvedilol [Coreg] 25 mg PO BID 08/12/17 08/08/18 History Doxazosin [Cardura] 1 mg PO DAILY 08/12/17 08/08/18 History Esomeprazole Magnesium [Nexium] 40 mg PO DAILY 08/12/17 08/08/18 History Hydrochlorothiazide 50 mg PO DAILY 08/12/17 08/08/18 History Rosuvastatin [Crestor] 20 tab PO HS 08/12/17 08/08/18 History buPROPion HCl [Bupropion HCl Sr] 150 mg PO BID 08/12/17 08/08/18 History diphenhydrAMINE [Benadryl] 25 mg PO HS 08/12/17 08/08/18 History glipiZIDE [Glipizide] 0.5 tab PO BID 08/12/17 08/08/18 History hydrALAZINE HCl 100 mg PO TID 08/12/17 08/08/18 History Albuterol Sulfate [Proair HFA] 1 puff IH Q4HR PRN 08/08/18 08/08/18 History Multivit-Min/FA/Lycopen/Lutein 1 tablet PO DAILY 08/08/18 08/08/18 History [Sentry Senior] Potassium Chloride [Klor-Con 10] 10 meq PO DAILY 08/08/18 08/08/18 History metFORMIN HCl [Metformin HCl] 1,000 mg PO BID 08/08/18 08/08/18 History - History PMHx:DM type 2, HLD, HTN, depression, ALINA, hx of ELVIS induced angioedema, fatty liver, hypocalcemia, iron def anemia(pending GI workup), paroxysmal a fib, hx of a flutter PSHx: A flutter ablation 2006, 2009, 2011; 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 denies: constipation Genitourinary: denies: dysuria, other (hematuria) Skin: denies: rashes, lesions Musculoskeletal: denies: pain, tenderness Neurological: denies: numbness, syncope, seizure, weakness Psychological: reports: anxiety, depression - Vital signs BP: 142/73 HR: 91 RR: 22 Tmax: 101 Pox: 94% on RA Wt: 126.5 kg - Physical Exam Constitutional: NAD, awake, alert and oriented, well developed HEENT: PERRLA, EOMI, conjunctiva clear, grossly normal hearing, MMM, oropharynx clear Neck: supple, no LAD Heart: RRR, pulses present, no edema, other (3/6 systolic murmur) Lungs: CTAB, no respiratory distress, good air movement, no rales/rhonchi, no wheezing Abdomen: soft, bowel sounds present, no masses/distention, other (diffuse slight tenderness to palpation) Musculoskeletal: normal structure, normal tone Neurological: no focal deficit, CN II-XII intact Skin: no rash/lesions, other (cap refill >2 seconds) Psychiatric: normal mood and affect, intact recent and remote memory FMR H&P: Results - Labs Result Diagrams: 08/09/18 05:06 08/09/18 05:06 Lab results: WBC 15.8 thou/uL (4.8-10.8) H 08/08/18 19:20 Hgb 10.4 g/dL (14.0-18.0) L 08/08/18 19:20 Hct 32.5 % (42.0-52.0) L 08/08/18 19:20 MCV 84.6 fL (78.0-98.0) 08/08/18 19:20 Plt Count 190 thou/uL (130-400) 08/08/18 19:20 Band Neuts % (Manual) 13 % (5-11) H 08/08/18 19:20 Sodium 136 mmol/L (136-145) 08/08/18 19:20 Potassium 3.3 mmol/L (3.5-5.1) L 08/08/18 19:20 Chloride 98 mmol/L (98-107) 08/08/18 19:20 Carbon Dioxide 26 mmol/L (22-29) 08/08/18 19:20 BUN 16 mg/dL (8.4-25.7) 08/08/18 19:20 Creatinine 1.17 mg/dL (0.7-1.3) 08/08/18 19:20 Glucose 134 mg/dL (70-105) H 08/08/18 19:20 Lactic Acid 2.2 mmol/L (0.5-2.2) 08/08/18 19:49 Calcium 8.6 mg/dL (7.8-10.44) 08/08/18 19:20 Total Bilirubin 0.6 mg/dL (0.2-1.2) 08/08/18 19:20 AST 16 U/L (5-34) 08/08/18 19:20 ALT 13 U/L (8-55) 08/08/18 19:20 Alkaline Phosphatase 71 U/L (40-150) 08/08/18 19:20 Serum Total Protein 7.9 g/dL (6.0-8.3) 08/08/18 19:20 Albumin 4.0 g/dL (3.5-5.0) 08/08/18 19:20 Lipase 30 U/L (8-78) 08/08/18 19:20 Urine Ketones Negative mg/dL (Negative) 08/08/18 20:33 Urine Blood Negative (Negative) 08/08/18 20:33 Urine Nitrite Negative (Negative) 08/08/18 20:33 Ur Leukocyte Esterase Negative (Negative) 08/08/18 20:33 - EKG Interpretation EKG: NSR FMR H&P: A/P - Problem List (1) Anxiety Current Visit: Yes Status: Acute Code(s): F41.9 - ANXIETY DISORDER, UNSPECIFIED (2) Depression Current Visit: Yes Status: Acute Code(s): F32.9 - MAJOR DEPRESSIVE DISORDER , SINGLE EPISODE, UNSPECIFIED (3) DM2 (diabetes mellitus, type 2) Current Visit: Yes Status: Acute (4) Atrial fib/flutter, transient Current Visit: No Status: Acute Code(s): [id number] - (5) HLD (hyperlipidemia) Current Visit: No Status: Acute Code(s): E78.5 - HYPERLIPIDEMIA, UNSPECIFIED (6) HTN (hypertension) Current Visit: No Status: Acute Code(s): I10 - ESSENTIAL (PRIMARY) HYPERTENSION (7) Intellectual disability Current Visit: No Status: Acute Code(s): F79 - UNSPECIFIED INTELLECTUAL DISABILITIES (8) Obesity Current Visit: No Status: Acute Code(s): E66.9 - OBESITY, UNSPECIFIED (9) Viral gastroenteritis Current Visit: Yes Status: Acute Code(s): A08.4 - VIRAL INTESTINAL INFECTION , UNSPECIFIED - Plan SIRS 2/2 Likely Viral gastroenteritis -CXR, UA neg. Patient has N/V/D, similar to 's recent illness. Meets SIRS criteria with fever, WBC, and elevated respirations. However, no source of bacterial infection at this time. Procal is negative, supporting theory that this is a viral illness. Continue supportive care. -CT abdomen done in ED negative. Influenza negative. -Cefepime and vanc discontinued -s/p 2L, continue MIVF. Zofran for nausea. -Continue to monitor -Tylenol for fever/pain DM2 -continue home medication -SSI with accuchecks HTN -continue home medicine Mild MR -aware Anxiety/depression -aware Diet: CC PCP: Edna DVT ppx: lovenox Gi ppx: nexium Code: full FMR H&P: Upper Level - Pertinent history 57 yr old male with hx of paroxysmal a fib, HTN, HLD presents for 1 day onset of diarrhea x 5 and persistent nausea and vomiting. Started earlier this morning around 0400. Diarrhea had a small streak of blood one time and also has resolved since about noon. He only reports abdominal pain when pressing on his abdomen. He reports a mild headache on right side of his head. No neck pain. His had something very similar about 1 week ago. No cough, no congestion, no pain with urination. - Pertinent findings General: NAD, alert and oriented x3 Neck: Supple. Full ROM. Heart/Cardiovascular System: harsh 3/6 systolic murmur heard best in RUSB, Cap refill < 3 seconds, no rub Lungs/Respiratory System: clear to auscultation bilaterally. No increased work of breathing. Room air. Abdomen/Gastro-Intestinal System: some LLQ abdominal tenderness and rebound, normal bowel sounds, no masses, no organomegaly Extremities: Warm extremities. No cyanosis. 1 +pitting edema in jazmín ankles Neuro: No gross deficits appreciated. CN 2-12 grossly intact Psychiatry: Awake, Alert and cooperative with exam Skin: No lesions, rashes, or ulcers Musculoskeletal: Full ROM CT Abd: no acute findings. - Plan Date/Time: 08/08/18 2240 I, [Oriana Bishop], have evaluated this patient and agree with findings/plan as outlined by kinesiology internship resident. Pertinent changes/additions are listed here. Likely viral gastroenteritis -supportive treatment with fluids, zofran -if blood in stool, will send cultures -SIRS technically met, however no sign of infectious cause on CT and symptoms localized to vomiting and diarrhea. -maintenance IV fluids, transition to PO when tolerated HTN -cont home meds Other chronic medical problems managed as noted in Dr. Cote note. PCP: Edna Dispo: likely in 1 day DVT ppx: lovenox
--- NOTE | 2018-08-08 23:37 | PDOC.EVN ---
Event Note - Event Note Event Note: Date/Time: 08/08/18 8637 I personally evaluated the patient and discussed the management with Dr. Dina Garnett I agree with the History, Examination, Assessment and Plan documented above with any addition or exceptions noted below - 57 yr old male with hx of paroxysmal a fib, HTN, HLD presents for 1 day onset of diarrhea x 5 and persistent nausea and vomiting. Started earlier this morning around 0400. Diarrhea had a small streak of blood one time and also has resolved since about noon. Denies any abdominal crampin, fever/chills. He reports a mild headache on right side of his head. No neck pain. His had something very similar about 1 week ago. No cough, no congestion, no pain with urination. PMH/PSH/Meds/SH reviewed and agree with resident's documentation. T 101 VSS Exam repeated by me and agree with resident's findings. Labs: WBC=15.8, H/H= 10.4/32.5, Qlw=744, Diff=79N/13B/1L, Tp=883, K=3.3, Cl=98, CO2=26, BUN/Cr= 16/1.17, Emyx=559, AST/ALT=16/13, Lactic acid=2.2 U/A- negative. A/P: 1) SIRS- based on fever and elevated WBC- most likely secondary to viral gastroenteritis - Place in obs. Fluid hydration and antiemetics. Stool cultures if diarrhea persists. 2) HTN- stable; continue home meds.
[2018-08-08] MEDS ORDERED: Morphine 2 MG/ML SYRINGE SLOW IVP PRN (23:41)
[2018-08-08] MEDS ORDERED: Acetaminophen 325 MG TAB PO PRN (23:45)
[2018-08-08] MEDS ORDERED: Sodium Chloride 0.9% 1,000 ML IV SCH (23:45)
[2018-08-08] MEDS ORDERED: Ondansetron PF 4 MG/2 ML Vial IVP PRN (23:45)
[2018-08-08] MEDS ORDERED: Morphine 4 MG/ML VIAL SLOW IVP PRN (23:45)
[2018-08-09] MEDS ORDERED: Ondansetron PF 4 MG/2 ML Vial IVP PRN (00:02)
[2018-08-09] MEDS ORDERED: Ondansetron ODT 4 MG TAB PO PRN (00:02)
[2018-08-09] MEDS ORDERED: Lactated Ringer's 1,000 ML IV SCH ×2 (00:02)
[2018-08-09 00:15] VITALS: BMI 40.7
[2018-08-09] MEDS ORDERED: Enoxaparin Sodium 40 MG/0.4 ML SYRINGE SC SCH (00:15)
[2018-08-09 00:31] LABS: Lactic Acid 1.1 mmol/L (0.5-2.2)
[2018-08-09] MEDS ORDERED: Cefepime 1 GM in Sodium Chloride 0.9% 100 ML IVPB SCH (04:00)
[2018-08-09] MEDS ORDERED: Dextrose 5% in Water 1,000 ML IV PRN (05:09)
[2018-08-09] MEDS ORDERED: Dextrose 50% Abboject 50 ML SYRINGE SLOW IVP PRN (05:09)
[2018-08-09] MEDS ORDERED: HumaLOG 300 UNITS/3 ML VIAL SC PRN (05:09)
[2018-08-09 05:38] LABS: #Lymphocytes 0.6 thou/uL (1.20-3.40); #Monocytes 0.7 thou/uL (0.11-0.59); #Neutrophils 9.3 thou/uL (1.40-6.50); %Basophils 0.2 % (0.0-1.0); %Eosinophils 0.3 % (0.0-10.0); %Lymphocytes 5.7 % (21.0-51.0); %Monocytes 6.8 % (0.0-10.0); Hemoglobin 8.7 g/dL (14.0-18.0); Mean Corpuscular Volume 84.4 fL (78.0-98.0); Mean Platelet Volume 10.2 fL (7.4-10.4); Platelet Count 170 thou/uL (130-400); Red Blood Cell (RBC) Count 3.24 mill/uL (4.70-6.10); White Blood Cell (WBC) Count 10.7 thou/uL (4.8-10.8)
[2018-08-09 05:47] LABS: Anion Gap 11 mmol/L (10-20); BUN (Urea Nitrogen) 11 mg/dL (8.4-25.7); Calc. Creatinine Clearance 166 mL/min (70-130); Calcium 7.9 mg/dL (7.8-10.44); Carbon Dioxide 28 mmol/L (22-29); Chloride 102 mmol/L (98-107); Estimated GFR-MDRD 85; Glucose 101 mg/dL (70-105); Sodium 138 mmol/L (136-145)
[2018-08-09 05:51] LABS: Potassium 2.7 mmol/L (3.5-5.1)
[2018-08-09] MEDS ORDERED: Potassium Chloride 20 MEQ TAB PO SCH (06:00)
[2018-08-09] MEDS: Lactated Ringer's 1,000 ML IV SCH ×2 (06:00→14:36)
[2018-08-09] MEDS ORDERED: Potassium Chloride 40 MEQ in Sodium Chloride 0.9% 500 ML IVPB SCH (06:30)
--- NOTE | 2018-08-09 06:53 | PDOC.FM ---
- Subjective Subjective: NAEO. Only one loose stool overnight. FEels much better. Wants to try eating breakfast today. - Objective MAR Reviewed: Yes Vital Signs & Weight: Vital Signs (12 hours) Temp Pulse Resp BP Pulse Ox 08/09/18 04:26 98.7 F 86 15 127/73 93 L 08/08/18 23:25 98.6 F 87 18 153/74 H 95 Weight Weight 132.585 kg I&O: 08/07/18 08/08/18 08/09/18 06:59 06:59 06:59 Intake Total 2069 Balance 2069 Result Diagrams: 08/09/18 05:06 08/09/18 12:19 Phys Exam - Physical Examination Constitutional: NAD obese HEENT: PERRLA, moist MMs Neck: no nodes, full ROM Respiratory: no wheezing, clear to auscultation bilateral Cardiovascular: RRR, no significant murmur Gastrointestinal: soft, non-tender, no distention, positive bowel sounds Neurological: non-focal Psychiatric: A&O x 3 Skin: cap refill <2 seconds Dx/Plan (1) Emesis, persistent Code(s): R11.10 - VOMITING, UNSPECIFIED Status: Acute (2) Viral gastroenteritis Code(s): A08.4 - VIRAL INTESTINAL INFECTION, UNSPECIFIED Status: Acute (3) DM2 (diabetes mellitus, type 2) Status: Acute (4) GERD (gastroesophageal reflux disease) Code(s): K21.9 - GASTRO-ESOPHAGEAL REFLUX DISEASE WITHOUT ESOPHAGITIS Status: Acute (5) HLD (hyperlipidemia) Code(s): E78.5 - HYPERLIPIDEMIA, UNSPECIFIED Status: Acute (6) HTN (hypertension) Code(s): I10 - ESSENTIAL (PRIMARY) HYPERTENSION Status: Acute (7) Intellectual disability Code(s): F79 - UNSPECIFIED INTELLECTUAL DISABILITIES Status: Acute (8) Obesity Code(s): E66.9 - OBESITY, UNSPECIFIED Status: Acute (9) Paroxysmal A-fib Code(s): I48.0 - PAROXYSMAL ATRIAL FIBRILLATION Status: Acute - Plan Plan: #SIRS 2/2 Likely Viral gastroenteritis -SIRS criteria resolved -clinically improved today -will see if can tolerate diet, if so, can d/c home today #Hypokalemia -likely from GI losses -Replaced via IV &PO this AM #DM2 -continue home medication -SSI with accuchecks #HTN -continue home medicine #Mild MR -aware #Anxiety/depression -aware #Obesity -aware, evp general counsel on lifestyle modification -continue outpt mgmt of this Diet: CC PCP: Edna DVT ppx: lovenox Gi ppx: nexium Code: full Dispo: d/c today pending po tolerance Addendum - Attending - Attending Attestation Date/Time: 08/09/18 [id number] I personally evaluated the patient and discussed the management with Dr. Agosto. I agree with the History, Examination, Assessment and Plan documented above with any addition or exceptions noted below. The patient's diarrhea worsened after breakfast. He is hypokalemic and we are replacing with iv and po potassium. Continue fluids.
[2018-08-09] MEDS: Hydrochlorothiazide 25 MG TAB PO SCH (08:09)
[2018-08-09] MEDS: Enoxaparin Sodium 40 MG/0.4 ML SYRINGE SC SCH (08:09)
[2018-08-09] MEDS: hydrALAZINE 25 MG TAB PO SCH ×3 (08:10→20:49)
[2018-08-09] MEDS: metFORMIN 500 MG TAB PO SCH ×2 (08:10→15:49)
[2018-08-09] MEDS: Potassium Chloride 10 MEQ TAB PO SCH (08:11)
[2018-08-09] MEDS: Aspirin 325 mg Enteric Coated Tablet PO SCH (08:11)
[2018-08-09] MEDS: glipiZIDE 5 MG TAB PO SCH ×2 (08:11→15:48)
[2018-08-09] MEDS: Carvedilol 25 MG TAB PO SCH ×2 (08:11→20:49)
[2018-08-09] MEDS: Doxazosin 2 MG TAB PO SCH (08:12)
[2018-08-09] MEDS: Bupropion 150 MG SR TAB PO SCH ×2 (08:15→20:48)
[2018-08-09] MEDS ORDERED: Vancomycin HCl 1 GM in Premix Bag 1 BAG IVPB SCH (09:00)
[2018-08-09 13:12] LABS: Anion Gap 12 mmol/L (10-20); BUN (Urea Nitrogen) 11 mg/dL (8.4-25.7); Calc. Creatinine Clearance 142 mL/min (70-130); Calcium 7.9 mg/dL (7.8-10.44); Carbon Dioxide 28 mmol/L (22-29); Chloride 102 mmol/L (98-107); Estimated GFR-MDRD 70; Glucose 81 mg/dL (70-105); Potassium 3.3 mmol/L (3.5-5.1); Sodium 139 mmol/L (136-145)
[2018-08-09] MEDS ORDERED: Potassium Chloride 20 MEQ in Premix Bag 1 BAG IVPB SCH ×2 (13:30→14:00)
[2018-08-09] MEDS: diphenhydrAMINE 25 MG CAP PO SCH (20:49)
[2018-08-09] MEDS: Rosuvastatin 20 MG TAB PO SCH (20:49)
[2018-08-10] MEDS: Lactated Ringer's 1,000 ML IV SCH (06:07)
[2018-08-10] MEDS ORDERED: Konsyl 12 gm Packet PO SCH (06:30)
--- NOTE | 2018-08-10 06:36 | PDOC.FM ---
Addendum entered and electronically signed by Rama Agosto MD 08/10/18 11:23 : Hypokalemia: replacing IV & PO with recheck level later Blood cultures showing gram + cocci, will not speciate until tmorrow. Will change to inpatient. Original Note: - Subjective Subjective: One loose BM overnight, more formed. Feels well today, some mild abdominal cramping. No issues otherwise, feels ready to go home. - Objective Vital Signs & Weight: Vital Signs (12 hours) Temp Pulse Resp BP BP Pulse Ox 08/10/18 04:00 98.3 F 76 22 H 161/91 H 95 08/09/18 23:51 99.9 F H 62 20 145/82 H 96 08/09/18 20:49 60 150/87 H 08/09/18 20:00 98.4 F 74 20 150/87 H 92 L 08/09/18 19:15 100.5 F H Weight Weight 132.585 kg I&O: 08/08/18 08/09/18 08/10/18 06:59 06:59 06:59 Intake Total 2069 1000 Output Total 1000 Balance 2069 0 Result Diagrams: 08/10/18 06:48 08/10/18 06:48 Phys Exam - Physical Examination Constitutional: NAD obese HEENT: PERRLA, moist MMs, sclera anicteric glasses Neck: full ROM Respiratory: no wheezing, clear to auscultation bilateral Cardiovascular: RRR, no significant murmur Gastrointestinal: soft, non-tender, no distention, positive bowel sounds Neurological: non-focal, moves all 4 limbs Psychiatric: normal affect, A&O x 3 Dx/Plan (1) Emesis, persistent Code(s): R11.10 - VOMITING, UNSPECIFIED Status: Acute (2) Viral gastroenteritis Code(s): A08.4 - VIRAL INTESTINAL INFECTION, UNSPECIFIED Status: Acute (3) DM2 (diabetes mellitus, type 2) Status: Acute (4) GERD (gastroesophageal reflux disease) Code(s): K21.9 - GASTRO-ESOPHAGEAL REFLUX DISEASE WITHOUT ESOPHAGITIS Status: Acute (5) HLD (hyperlipidemia) Code(s): E78.5 - HYPERLIPIDEMIA, UNSPECIFIED Status: Acute (6) HTN (hypertension) Code(s): I10 - ESSENTIAL (PRIMARY) HYPERTENSION Status: Acute (7) Intellectual disability Code(s): F79 - UNSPECIFIED INTELLECTUAL DISABILITIES Status: Acute (8) Obesity Code(s): E66.9 - OBESITY, UNSPECIFIED Status: Acute (9) Paroxysmal A-fib Code(s): I48.0 - PAROXYSMAL ATRIAL FIBRILLATION Status: Acute - Plan Plan: #SIRS 2/2 Likely Viral gastroenteritis -SIRS criteria resolved, one fever overnight 100.5, did not require tylenol, afebrile since then -clinically improved today #Hypokalemia -likely from GI losses -3.0 today, will replace IV, recheck later #DM2 -continue home medication -SSI with accuchecks #HTN -continue home medicine #Mild MR -aware #Anxiety/depression -aware #Obesity -aware, counseling services manager on lifestyle modification -continue outpt mgmt of this Diet: CC PCP: Edna DVT ppx: lovenox Gi ppx: nexium Code: full Dispo: d/c today pending potassium Addendum - Attending - Attending Attestation Date/Time: 08/10/18 2703 I personally evaluated the patient and discussed the management with Dr. Agosto. I agree with the History, Examination, Assessment and Plan documented above with any addition or exceptions noted below. The patient is still having diarrhea but is improving. He is again hypokalemic and replacing with iv and po potassium. He also has hypomagnesemia and is receiving IV mag. Will keep pt here until blood cultures return.
[2018-08-10 07:06] LABS: #Eosinphils 0.1 thou/uL (0.0-0.7); #Lymphocytes 0.8 thou/uL (1.20-3.40); #Monocytes 0.9 thou/uL (0.11-0.59); #Neutrophils 6.5 thou/uL (1.40-6.50); %Basophils 0.3 % (0.0-1.0); %Eosinophils 1.3 % (0.0-10.0); %Lymphocytes 9.8 % (21.0-51.0); %Neutrophils 77.7 % (42.0-75.0); Hemoglobin 9.4 g/dL (14.0-18.0); Mean Corpuscular HGB CONC 32.3 g/dL (32.0-36.0); Mean Corpuscular Hemoglobin 27.3 pg (27.0-31.0); Mean Corpuscular Volume 84.3 fL (78.0-98.0); Mean Platelet Volume 9.5 fL (7.4-10.4); Platelet Count 174 thou/uL (130-400); RBC Distribution Width 15.9 % (11.5-14.5); Red Blood Cell (RBC) Count 3.44 mill/uL (4.70-6.10); White Blood Cell (WBC) Count 8.4 thou/uL (4.8-10.8)
[2018-08-10 07:26] LABS: Anion Gap 11 mmol/L (10-20); BUN (Urea Nitrogen) 8 mg/dL (8.4-25.7); Calc. Creatinine Clearance 168 mL/min (70-130); Calcium 8.4 mg/dL (7.8-10.44); Carbon Dioxide 30 mmol/L (22-29); Chloride 102 mmol/L (98-107); Estimated GFR-MDRD 86; Glucose 91 mg/dL (70-105); Sodium 140 mmol/L (136-145)
[2018-08-10] MEDS: Potassium Chloride 10 MEQ TAB PO SCH (09:17)
[2018-08-10] MEDS: metFORMIN 500 MG TAB PO SCH ×2 (09:17→16:19)
[2018-08-10] MEDS: glipiZIDE 5 MG TAB PO SCH ×2 (09:17→16:19)
[2018-08-10] MEDS: hydrALAZINE 25 MG TAB PO SCH ×3 (09:17→20:31)
[2018-08-10] MEDS: Hydrochlorothiazide 25 MG TAB PO SCH (09:17)
[2018-08-10] MEDS: Doxazosin 2 MG TAB PO SCH (09:18)
[2018-08-10] MEDS: Aspirin 325 mg Enteric Coated Tablet PO SCH (09:18)
[2018-08-10] MEDS: Carvedilol 25 MG TAB PO SCH ×2 (09:18→20:30)
[2018-08-10] MEDS: Bupropion 150 MG SR TAB PO SCH ×2 (09:19→20:30)
[2018-08-10] MEDS: Enoxaparin Sodium 40 MG/0.4 ML SYRINGE SC SCH (09:19)
[2018-08-10] MEDS ORDERED: Potassium Chloride 20 MEQ TAB PO SCH (09:30)
[2018-08-10] MEDS ORDERED: Potassium Chloride 40 MEQ in Sodium Chloride 0.9% 250 ML 250 ML IVPB SCH (10:00)
[2018-08-10] MEDS ORDERED: Magnesium 2 GM/50 ML 2 GM in Premix Bag 1 BAG IVPB SCH (11:45)
[2018-08-10] MEDS ORDERED: Magnesium 2 GM/50 ML 1 GM in Premix Bag 1 BAG IVPB SCH (11:45)
[2018-08-10] MEDS ORDERED: Doxazosin 2 MG TAB PO ONE (12:00)
[2018-08-10] MEDS ORDERED: Losartan 25 MG TAB PO SCH (12:00)
[2018-08-10 16:56] LABS: Potassium 3.6 mmol/L (3.5-5.1)
[2018-08-10] MEDS: Rosuvastatin 20 MG TAB PO SCH (20:30)
[2018-08-10] MEDS: diphenhydrAMINE 25 MG CAP PO SCH (20:30)
--- NOTE | 2018-08-11 06:33 | PDOC.FM ---
- Subjective Subjective: One loose BM stool. Denies abd pain, nausea, emesis, chest pain, vision changes , SOB. No blood in stool - Objective Vital Signs & Weight: Vital Signs (12 hours) Temp Pulse Resp BP BP Pulse Ox 08/10/18 20:31 74 146/87 H 08/10/18 19:39 98.6 F 74 18 146/87 H 95 Weight Weight 132.585 kg I&O: 08/09/18 08/10/18 08/11/18 06:59 06:59 06:59 Intake Total 2069 1055 Output Total 1000 Balance 2069 55 Result Diagrams: 08/10/18 06:48 08/11/18 05:43 Phys Exam - Physical Examination Constitutional: NAD HEENT: PERRLA, moist MMs, sclera anicteric Respiratory: no wheezing, clear to auscultation bilateral Cardiovascular: RRR, no significant murmur Gastrointestinal: soft, non-tender, no distention, positive bowel sounds Neurological: non-focal, moves all 4 limbs Dx/Plan (1) Emesis, persistent Code(s): R11.10 - VOMITING, UNSPECIFIED Status: Acute (2) Viral gastroenteritis Code(s): A08.4 - VIRAL INTESTINAL INFECTION, UNSPECIFIED Status: Acute (3) DM2 (diabetes mellitus, type 2) Status: Acute (4) GERD (gastroesophageal reflux disease) Code(s): K21.9 - GASTRO-ESOPHAGEAL REFLUX DISEASE WITHOUT ESOPHAGITIS Status: Acute (5) HLD (hyperlipidemia) Code(s): E78.5 - HYPERLIPIDEMIA, UNSPECIFIED Status: Acute (6) HTN (hypertension) Code(s): I10 - ESSENTIAL (PRIMARY) HYPERTENSION Status: Acute (7) Intellectual disability Code(s): F79 - UNSPECIFIED INTELLECTUAL DISABILITIES Status: Acute (8) Obesity Code(s): E66.9 - OBESITY, UNSPECIFIED Status: Acute (9) Paroxysmal A-fib Code(s): I48.0 - PAROXYSMAL ATRIAL FIBRILLATION Status: Acute - Plan Plan: #SIRS 2/2 Likely Viral gastroenteritis -SIRS criteria resolved, one fever overnight 100.5, did not require tylenol, afebrile since then -clinically improved today #Hypokalemia -3.1, 80 PO -will send home on K replacement -likely GI losses, f/u outpt to recheck #cHTN -elevated BPs 146/87-153/101, pt asx -on 08/10 added aldactone -monitor BPs today, continue titrating up as needed #DM2 -continue home medication -SSI with accuchecks #Mild MR -aware #Anxiety/depression -aware #Obesity -aware, mortgage counselor on lifestyle modification -continue outpt mgmt of this Diet: CC PCP: Edna DVT ppx: lovenox Gi ppx: nexium Code: full Dispo: 1) Sepsis 2/2 viral gastroenteritis- clinically improved. 2)Staph species in 1/2 blood cx coag negative staph, contaminant 3)Hypokalemia- will replace PO, recheck, d/c at home today with recheck in outpt. 4) Elevated BPs - monitor, if still elevated after AM dose, inc. losartan Addendum - Attending - Attending Attestation Date/Time: 08/11/18 1203 I personally evaluated the patient and discussed the management with Dr. Agosto. I agree with the History, Examination, Assessment and Plan documented above with any addition or exceptions noted below. Pt is feeling better. We spent extensive time reassuring patient, counseling on new medications, need for following and potassium levels. Pt will be discharged.
[2018-08-11 07:00] LABS: Anion Gap 12 mmol/L (10-20); BUN (Urea Nitrogen) 14 mg/dL (8.4-25.7); Calc. Creatinine Clearance 139 mL/min (70-130); Calcium 8.3 mg/dL (7.8-10.44); Carbon Dioxide 29 mmol/L (22-29); Chloride 100 mmol/L (98-107); Estimated GFR-MDRD 69; Glucose 116 mg/dL (70-105); Potassium 3.1 mmol/L (3.5-5.1); Sodium 138 mmol/L (136-145)
[2018-08-11] MEDS: metFORMIN 500 MG TAB PO SCH (08:07)
[2018-08-11] MEDS: Hydrochlorothiazide 25 MG TAB PO SCH (08:07)
[2018-08-11] MEDS: Potassium Chloride 10 MEQ TAB PO SCH (08:07)
[2018-08-11] MEDS: Carvedilol 25 MG TAB PO SCH (08:08)
[2018-08-11] MEDS: Aspirin 325 mg Enteric Coated Tablet PO SCH (08:08)
[2018-08-11] MEDS: glipiZIDE 5 MG TAB PO SCH (08:08)
[2018-08-11] MEDS: hydrALAZINE 25 MG TAB PO SCH ×2 (08:08→14:38)
[2018-08-11] MEDS: Enoxaparin Sodium 40 MG/0.4 ML SYRINGE SC SCH (08:09)
[2018-08-11] MEDS ORDERED: Doxazosin 2 MG TAB PO SCH (09:00)
[2018-08-11] MEDS ORDERED: Losartan 25 MG TAB PO SCH (09:00)
[2018-08-11] MEDS ORDERED: Potassium Chloride 20 MEQ TAB PO SCH ×2 (09:00→09:15)
[2018-08-11] MEDS ORDERED: Potassium Chloride 40 MEQ in Sodium Chloride 0.9% 250 ML 250 ML IVPB SCH (09:00)
[2018-08-11] MEDS: Bupropion 150 MG SR TAB PO SCH (09:45)
[2018-08-11 12:31] VITALS: TEMP 97.8
[2018-08-11 14:21] LABS: Potassium 3.4 mmol/L (3.5-5.1)
[2018-08-11 14:39] VITALS: BP 176/97
--- NOTE | 2018-08-12 09:13 | DIS ---
DATE OF ADMISSION: 08/10/2018 DATE OF DISCHARGE: 08/11/2018 ADMITTING PHYSICIAN: Gail Seaman MD. RESIDENT: Rama Agosto MD. CONSULTS: None. PROCEDURES AND IMAGING: Abdomen pelvis CT: No evidence of acute intraabdominal pelvic abnormality. PERTINENT LABORATORY DATA: 1. C. diff negative. 2. Urine culture negative. 3. Flu negative. 4. Blood culture 1/2 coag-negative staph. PRIMARY DIAGNOSES: 1. Sepsis secondary to viral gastroenteritis. 2. Hypokalemia. 3. Chronic hypertension. SECONDARY DIAGNOSES: 1. Mild mental retardation. 2. Anxiety, depression. 3. Diabetes type 2. 4. Obesity. DISCHARGE MEDICATIONS: New home medications: 1. Cozaar 25 mg p.o. daily. 2. K-Dur 40 mEq p.o., 7 tabs. 3. Psyllium one packet p.o. b.i.d. p.r.n. Recent home medications: 1. Glipizide 10 mg half tab p.o. b.i.d. 2. Benadryl 25 mg p.o. at bedtime. 3. Cardura 1 mg p.o. daily. 4. mg p.o. daily. 5. Bupropion 150 mg p.o. b.i.d. 6. Nexium 40 mg p.o. daily. 7. Hydralazine 100 mg p.o. t.i.d. 8. HCTZ 50 mg p.o. daily. 9. Coreg 25 mg p.o. b.i.d. 10. Rosuvastatin 20 tab p.o. at bedtime. 11. Multivitamin 1 tab p.o. daily. DISCONTINUED MEDICATIONS: Potassium chloride 10 mEq p.o. daily. HISTORY OF PRESENT ILLNESS/HOSPITAL COURSE: Mr. Lg Le is a 57-year-old male who came to hospital for persistent nausea, vomiting, diarrhea. He met SIRS criteria with white count, tachycardia; however, CT imaging was negative for any type of localized or inflammatory cause per imaging. He was admitted for sepsis secondary to viral gastroenteritis and treated with supportive care. He rapidly improved clinically over the next couple of days. Hypokalemia: He experienced hypokalemia likely from GI losses, which was replaced p.o. and IV. He is being sent home on 40 mEq p.o. daily to take for the next week due to continued but lessened diarrhea. Discontinue the 10 mEq until he finishes the 40. Chronic hypertension. Due to elevated blood pressures, he was added on another antihypertensive, losartan. Continue titrating as needed. Overall infectious stool workup was negative for C. diff. DISPOSITION: Stable. DISCHARGE INSTRUCTIONS: 1. Location: Home. 2. Diet: High-fiber diet, heart healthy, carb consistent. 3. Activity: Ad ruthy as tolerated. FOLLOWUP: 1. Please follow up with PCP, , Dr. Rama Agosto in 2 weeks. 2. Please make an appointment to be seen next week due to hospitalization. 3. Please recheck BMP to ensure potassium is within normal limits. 4. Please resume patient's home potassium p.o. replacement of 10 mEq once he finishes 40 mEq regimen. Approximately 30 minutes was spent with the patient for coordinating of care and patient education. Job ID: [id number]
--- NOTE | 2018-08-13 15:28 | EKG ---
Test Reason : Blood Pressure : / mmHG Vent. Rate : 093 BPM Atrial Rate : 093 BPM P-R Int : 190 ms QRS Dur : 104 ms QT Int : 370 ms P-R-T Axes : 042 -47 062 degrees QTc Int : 460 ms Normal sinus rhythm Pulmonary disease pattern Incomplete right bundle branch block Left anterior fascicular block Abnormal ECG Confirmed by ICNDY STEWARD, AILYN ([id number]), editorial writer NOEL URBAN ([id number]) on 08/13/2018 3:28:39 PM Referred By: Confirmed By:AILYN WHITE MD
== END 2018-08-11 15:12 | disposition home or self-care (01) | DRG 872 ==
LOC: ERS 19:02 → INTOOBSV 21:50 → SURG B 21:50 → T4-B 08-09 12:48 → OBSVTOIN 08-10 10:35
PROVIDERS: ADMIT Family Medicine; ATTEND Family Medicine
DX: A41.9 Sepsis, unspecified organism (principal); Z68.41 Body mass index [BMI] 40.0-44.9, adult; E11.9 Type 2 diabetes mellitus without complications; E78.5 Hyperlipidemia, unspecified; I10 Essential (primary) hypertension; F32.9 Major depressive disorder, single episode, unspecified; G47.33 Obstructive sleep apnea (adult) (pediatric); I48.0 Paroxysmal atrial fibrillation; F41.9 Anxiety disorder, unspecified; F79 Unspecified intellectual disabilities; E66.9 Obesity, unspecified; A08.4 Viral intestinal infection, unspecified; I34.0 Nonrheumatic mitral (valve) insufficiency; K21.9 Gastro-esophageal reflux disease without esophagitis; E87.6 Hypokalemia; B96.89 Other specified bacterial agents as the cause of diseases classified elsewhere; Z88.8 Allergy status to other drugs, medicaments and biological substances; Z79.82 Long term (current) use of aspirin; Z88.0 Allergy status to penicillin; Z79.84 Long term (current) use of oral hypoglycemic drugs; Z79.899 Other long term (current) drug therapy
CPT/HCPCS: 36415; 36416; 71045; 74177; 80048; 80053; 81003; 83605; 83690; 83735; 84145; 85025; 87040; 87086; 87149; 87324; 87449; 87804; 93005; 96361; 96365; 96366; 96367; 96375; J0692; J1650; J1885; J2270; J2405; J3370; J3475; J3480; J7050; Q0162; Q0163

== ENCOUNTER → 2018-08-31 | Day surgery (SDC) | payer MEDICARE, MEDICAID ==
[2018-08-30 10:41] VITALS: BMI 43.6
[~2018-08-31] MED LIST changes: +Fentanyl 100 MCG/2 ML VIAL ONE; -ISOVUE-370 76%-LOCM 1 ML ONE; -Iopamidol 370 76% 50 ML VIAL FS ONE
--- NOTE | 2018-08-31 13:59 | OP ---
DATE OF PROCEDURE: 08/31/2018 PROCEDURES PERFORMED: Esophagogastroduodenoscopy with biopsy, colonoscopy (diagnostic). INDICATION FOR PROCEDURE: Iron-deficiency anemia. DESCRIPTION OF PROCEDURE: After the risks and benefits of the procedures were explained to the patient including risks of bleeding, infection, perforation, reactions to anesthesia, aspiration and/or pain, informed consent was obtained. The patient was then taken to the endoscopy suite, where deep sedation was administered via propofol and anesthesia support. Once adequate sedation was achieved, the standard gastroscope was introduced into the mouth with intubation of the esophagus, stomach, and the proximal small intestine with the findings listed below. The patient tolerated this portion of the procedure well with no immediate perioperative complications. Upon conclusion of this phase of the procedure, all equipment was removed from the patient and the bed was rotated 180 degrees in anticipation of the colonoscopy. After a digital rectal examination was performed, the standard colonoscope was introduced into the rectum and advanced to the terminal ileum with some difficulty due to significant tortuosity/redundancy of the colon. The quality of the prep was fair to poor with a large amount of semi-solid and liquid stool seen throughout the entire colon limiting visualization of the colonic mucosa. However with aggressive irrigation and suctioning, the prep was converted to an adequate prep, but I was unable to evaluate any lesions less than 5 mm in size. The patient tolerated this portion of the procedure well with no immediate perioperative complications. Upon conclusion of the colonoscopy, all equipment was removed from the patient and he was transferred to Day Stay in satisfactory condition. EGD FINDINGS: Esophagus: Normal-appearing mucosa was seen in the proximal, mid, and distal esophagus. There was no evidence of erosions, ulcerations, mass, lesions, or active/recent bleeding. Stomach: Normal-appearing mucosa was seen in the gastric cardia and at the GE junction. However, multiple small sargent-colored polyps were seen in the gastric fundus and body and did not exhibit any surrounding erythema, ulceration or active/recent bleeding. Multiple biopsies were taken from a sales representative uniforms sample of these polyps and placed in a specimen jar for evaluation. Normal-appearing mucosa was then seen at the incisura. However, multiple erythematous polyps were seen in the gastric antrum, one of which did have a small superficial ulceration overlying the top of it, but did not exhibit any evidence of high-risk stigmata of bleeding nor any evidence of active/recent bleeding. Multiple biopsies were taken from these polyps and placed in a specimen jar for evaluation. These polyps exhibited increased mild oozing of blood that stopped upon direct visualization with the endoscope, no hiatal hernia was seen on gastric retroflexion. Duodenum: Multiple areas of pinpoint darkened mucosa was seen in both the duodenal bulb and second portion of the duodenum, but otherwise was normal in appearance. There was no evidence of erosions, ulcerations, mass, lesions, or active/recent bleeding. IMPRESSION: 1. Multiple polyps in the gastric fundus and body consistent with fundic gland polyp formation and PPI use. 2. Multiple erythematous polyps seen in the gastric antrum consistent with hyperplastic polyps. 3. Mild darkening of the duodenal bulb and second portion consistent with melanosis intestinalis. 4. No etiology for the patient's iron deficiency anemia was seen during this examination. COLONOSCOPY FINDINGS: Digital rectal exam: Normal-appearing mucosa was seen on external examination with normal sphincter tone. Colon findings: A large amount of retained liquid stool was seen throughout the entire colon, thereby limiting visualization of the colonic mucosa. With aggressive irrigation and suctioning, adequate visualization was able to be achieved. However, lesions less than 5 mm in size could have been missed off the mucosa seen, normal-appearing mucosa was seen in the terminal ileum as well as at the ileocecal valve and appendiceal orifice. Normal-appearing mucosa was also seen in the cecum, ascending colon, transverse colon, descending colon, sigmoid colon, and rectum. Small internal hemorrhoids were seen on rectal retroflexion. IMPRESSION: 1. Large amount of retained liquid stool preventing adequate visualization, but sufficient enough for the evaluation of bleeding and/or cancer. 2. Small internal hemorrhoids. 3. Otherwise normal colonoscopy with no etiology for iron deficiency anemia seen during this examination. RECOMMENDATIONS: 1. Would have the patient follow up in the GI clinic in 2 to 3 weeks for followup on biopsy results within the upper GI tract. 2. Would continue to monitor the patient's H and H and transfuse as necessary to maintain an H and H of 7/21. 3. Would continue to avoid NSAIDs. 4. Continue PPI daily given evidence of erythematous/hyperplastic polyps in the gastric antrum. 5. Would highly consider capsule endoscopy when seen in the GI Clinic. Job ID: [id number]
== END ==
LOC: SDC 09:38
PROVIDERS: ATTEND Internal Medicine
PROC: 0DJD8ZZ Inspection of Lower Intestinal Tract, Via Natural or Artificial Opening Endoscopic (ICD-10-PCS; principal; 2018-08-31)
PROC: 0DB68ZX Excision of Stomach, Via Natural or Artificial Opening Endoscopic, Diagnostic (ICD-10-PCS; 2018-08-31)
PROC: 0DB88ZX Excision of Small Intestine, Via Natural or Artificial Opening Endoscopic, Diagnostic (ICD-10-PCS; 2018-08-31)
DX: D50.9 Iron deficiency anemia, unspecified (principal); K31.7 Polyp of stomach and duodenum; K64.8 Other hemorrhoids; F41.9 Anxiety disorder, unspecified; Z79.84 Long term (current) use of oral hypoglycemic drugs; F32.9 Major depressive disorder, single episode, unspecified; Z79.899 Other long term (current) drug therapy
CPT/HCPCS: 88305; 88312; J3010

== ENCOUNTER 2018-10-10 10:28 | Emergency (ER) | payer MEDICARE, MEDICAID ==
[2018-10-10] MEDS ORDERED: Ibuprofen 200 MG TAB ONE (12:25)
== END 2018-10-10 12:50 | disposition home or self-care (01) ==
LOC: ERS 10:28
DX: M54.5 Low back pain (principal); I11.0 Hypertensive heart disease with heart failure; I50.9 Heart failure, unspecified; I49.9 Cardiac arrhythmia, unspecified; I48.91 Unspecified atrial fibrillation; E11.9 Type 2 diabetes mellitus without complications; F41.9 Anxiety disorder, unspecified; F32.9 Major depressive disorder, single episode, unspecified
CPT/HCPCS: 99283

== ENCOUNTER 2018-11-13 19:30 | Outpatient (CLI) | payer MEDICARE, MEDICAID | END 2018-11-13 19:31 | disposition home or self-care (01) | LOC: SLEEPLAB 19:30 | PROVIDERS: ATTEND Internal Medicine Critical Care Medicine | DX: G47.33 Obstructive sleep apnea (adult) (pediatric) (principal); I49.3 Ventricular premature depolarization | CPT/HCPCS: 95811 ==

== ENCOUNTER 2018-12-25 19:47 | Emergency (ER) | payer OTHER, MEDICARE, MEDICAID ==
[2018-12-25] MEDS ORDERED: Acetaminophen 500 MG TAB ONE (21:20)
[2018-12-25] MEDS ORDERED: Ondansetron ODT 4 MG TAB ONE (21:20)
--- NOTE | 2018-12-25 21:59 | RAD ---
Exam: 3 views sacrum and coccyx HISTORY: Pain. Fall. LUNGS: Sacral ala appear to be preserved. Visualized bony pelvis is intact. Sacroiliac joints are pat ent and symmetric IMPRESSION: No fracture.
--- NOTE | 2018-12-25 22:00 | RAD ---
Exam: 3 views lumbar spine HISTORY: Pain. Fall. FINDINGS: Multilevel degenerative disc disease with loss of disc space height and osteophyte formatio n. Straightening of normal lumbar lordosis may be due to patient position or muscle spasm. No spondylolisthesis. No spondylolysis. Vertebral body heights are maintained. No fracture. Note, there are 6 lumbar type vertebra. IMPRESSION: No fracture.
== END 2018-12-25 22:40 | disposition home or self-care (01) ==
LOC: ERS 19:47
DX: M54.5 Low back pain (principal); I11.0 Hypertensive heart disease with heart failure; I50.9 Heart failure, unspecified; E11.9 Type 2 diabetes mellitus without complications; I48.91 Unspecified atrial fibrillation; F41.9 Anxiety disorder, unspecified; F32.9 Major depressive disorder, single episode, unspecified; Z79.899 Other long term (current) drug therapy; W18.30XA Fall on same level, unspecified, initial encounter
CPT/HCPCS: 72100; 72220; Q0162

== ENCOUNTER 2019-04-16 15:22 | Observation (INO) | payer MEDICARE, MEDICAID ==
[2019-04-16 17:42] LABS: #Eosinphils 0.1 thou/uL (0.0-0.7); #Lymphocytes 1.4 thou/uL (1.20-3.40); #Monocytes 0.7 thou/uL (0.11-0.59); #Neutrophils 6.3 thou/uL (1.40-6.50); %Basophils 0.4 % (0.0-1.0); %Eosinophils 1.7 % (0.0-10.0); %Lymphocytes 16.5 % (21.0-51.0); %Monocytes 8.5 % (0.0-10.0); %Neutrophils 72.8 % (42.0-75.0); Hemoglobin 11.6 g/dL (14.0-18.0); Mean Corpuscular HGB CONC 33.9 g/dL (32.0-36.0); Mean Corpuscular Hemoglobin 31.3 pg (27.0-31.0); Mean Corpuscular Volume 92.2 fL (78.0-98.0); Mean Platelet Volume 9.7 fL (7.4-10.4); Platelet Count 191 thou/uL (130-400); RBC Distribution Width 13.5 % (11.5-14.5); Red Blood Cell (RBC) Count 3.71 mill/uL (4.70-6.10); White Blood Cell (WBC) Count 8.7 thou/uL (4.8-10.8)
[2019-04-16 18:03] LABS: ALT (SGPT) 15 U/L (8-55); AST (SGOT) 16 U/L (5-34); Alkaline Phosphatase 63 U/L (40-110); Anion Gap 14 mmol/L (10-20); BUN (Urea Nitrogen) 16 mg/dL (8.4-25.7); Bilirubin, Total 0.4 mg/dL (0.2-1.2); Calc. Creatinine Clearance 0 mL/min (70-130); Calcium 8.3 mg/dL (7.8-10.44); Carbon Dioxide 29 mmol/L (22-29); Chloride 101 mmol/L (98-107); Estimated GFR-MDRD 70; Globulin 3.3 g/dL (2.4-3.5); Glucose 64 mg/dL (70-105); Potassium 3.3 mmol/L (3.5-5.1); Protein, Total 7.3 g/dL (6.0-8.3); Sodium 141 mmol/L (136-145)
--- NOTE | 2019-04-16 18:45 | RAD ---
THREE VIEWS LUMBAR SPINE: COMPARISON: 12/25/2018 FINDINGS: Six lumbar type vertebra. Stable degenerative disc disease with loss of disc space height and osteoph yte formation. No significant progression and change with regards to the loss of disc space height. Vertebral body heights are maintained. No fracture. Stable straightening of lumbar lordosis. Visualized sacrum appears to be intact on the lateral projection IMPRESSION: 1. No fracture. 2. Stable degenerative change. Transcribed Date/Time: 04/16/2019 7:08 PM
--- NOTE | 2019-04-16 18:46 | RAD ---
Exam: Chest one view HISTORY:Fall. Pain. Comparison: 08/08/2018 FINDINGS: Cardiac silhouette: Normal Aorta: Unremarkable Pulmonary vessels: Normal Costophrenic angles: Clear LUNGS: No masses or consolidation. Pneumothorax: None Osseous abnormalities: None IMPRESSION: No acute cardiopulmonary process.
[2019-04-16 19:16] LABS: CKMB 2.8 ng/mL (0-6.6)
[2019-04-16 19:42] LABS: Bilirubin Negative (Negative); Blood, Urine Negative (Negative); Clarity Clear (Clear); Glucose, Urine (Dipstick) Normal (Negative); Leukocyte Negative Leu/uL (Negative); Nitrite Negative (Negative); Protein, Urine (Dipstick) 10 mg/dL (Neg-Trace); Urobilinogen Normal mg/dL (Less than 2)
--- NOTE | 2019-04-16 20:01 | PDOC.FPRHP ---
- History of Present Illness Chief Complaint: frequent falls History of Present Illness: 58 y/o male with pmhx of a fib, htn, dm, depression and frequent falls here today for falling yesterday and feeling unsteady in his gait. He was taking the trash out when he fell backwards landing on his buttocks. C/o low back pain and buttocks pain. Denies hitting his head. or injuring any other structure. Pt states he feels light headed when he stands or walks. This has been an ongoing problem for the past 2 weeks, when he has noticed an increase in his falls. Pt c/o allergies, with runny nose and slight dry cough. Pt sleeps with CPAP machine at night. Denies CP, SOB, N/V/D. L-spine x-ray, no fx, stable degenerative changes. EKG: old RBBB CXR: no acute cardiopulmonary findings CT head negative for acute hemorrhage. - Allergies/Adverse Reactions Allergies Allergy/AdvReac Type Severity Reaction Status Date / Time Penicillins Allergy Unknown Verified 04/16/19 22:29 lisinopril Allergy Verified 04/16/19 22:29 pneumococcal vaccine Allergy Verified 04/16/19 22:29 [From Pneumovax 23] - Home Medications Medication Instructions Recorded Confirmed Type Aspirin [Ecotrin Regular Strength] 81 mg PO DAILY 08/12/17 04/16/19 History Carvedilol [Coreg] 25 mg PO BID 08/12/17 04/16/19 History Esomeprazole Magnesium [Nexium] 40 mg PO DAILY 08/12/17 04/16/19 History Hydrochlorothiazide 50 mg PO DAILY 08/12/17 04/16/19 History Rosuvastatin [Crestor] 20 tab PO HS 08/12/17 04/16/19 History buPROPion HCl [Bupropion HCl Sr] 150 mg PO BID 08/12/17 04/16/19 History diphenhydrAMINE [Benadryl] 25 mg PO DAILY 08/12/17 04/16/19 History glipiZIDE [Glipizide] 0.5 tab PO HS 08/12/17 04/16/19 History Multivit-Min/FA/Lycopen/Lutein 1 tablet PO DAILY 08/08/18 04/16/19 History [Jose Senior] metFORMIN HCl [Metformin HCl] 1,000 mg PO BID 08/08/18 04/16/19 History Doxazosin Mesylate 1 mg PO DAILY 08/30/18 04/16/19 History Potassium Chloride [K-Dur] 10 meq PO DAILY 08/30/18 04/16/19 History hydrALAZINE HCl 100 mg PO TID 08/30/18 04/16/19 History Acetaminophen [Tylenol] 1,000 mg PO Q6HR PRN 04/16/19 04/16/19 History Docusate Sodium 100 mg PO DAILY 04/16/19 04/16/19 History Ferrous Sulfate 325 mg PO DAILY 04/16/19 04/16/19 History Losartan [Cozaar] 100 mg PO DAILY 04/16/19 04/16/19 History glipiZIDE 10 mg PO DAILY-AC 04/16/19 04/16/19 History - History PMHx:DM type 2, HLD, HTN, depression, ALINA, hx of ELVIS induced angioedema, fatty liver, hypocalcemia, iron def anemia(pending GI workup), paroxysmal a fib, hx of a flutter PSHx: A flutter ablation 2006, 2009, 2011; excision of congenital dysplastic nevus right foot, FHx: no history cardiac disease Social: neg for smoking, drugs, alcohol - Review of Systems General: denies: fever/chills, weight/appetite/sleep changes Eyes: denies: vision changes ENT: reports: nasal congestion Respiratory: reports: cough, congestion. denies: shortness of breath Cardiovascular: reports: edema. denies: chest pain, palpitation, paroxysmal nocturnal dyspnea, orthopnea Gastrointestinal: denies: nausea, vomiting, diarrhea, abdominal pain Genitourinary: denies: dysuria Skin: denies: rashes, jaundice Musculoskeletal: reports: pain (low back and buttock) Neurological: reports: other (dizziness when standing or walking.) Psychological: reports: depression - Vital signs BP: 176/69 HR: 63 RR: 18 Tmax: 98.3 Pox: 96% on ra Wt: 119 kg supine: 176/69 sittin/84 Standin/67 - Physical Exam Constitutional: NAD, awake, alert and oriented HEENT: normocephalic and atraumatic, PERRLA, EOMI, conjunctiva clear, no scleral icterus, grossly normal vision, grossly normal hearing, oropharynx clear -HEENT: dry MM. Neck: supple, trachea midline, no JVD Chest: no lesions -Chest: tender to touch anteriorly. Heart: no murmurs/rubs/gallops, pulses present, other (2+ BLE pitting edema) -Heart: irregularly irregular. Lungs: CTAB, no respiratory distress, good air movement, no rales/rhonchi, no wheezing, no retractions Abdomen: soft, non-tender, bowel sounds present Musculoskeletal: normal structure, normal tone -Musculoskeletal: in wheelchair. Paraspinal hypertonicity to lumbar spine. Neurological: CN II-XII intact Skin: no rash/lesions, good turgor, capillary refill <2 seconds, no jaundice Heme/Lymphatic: no unusual bruising or bleeding, no purpura, no petechia Psychiatric: normal mood and affect, intact recent and remote memory FMR H&P: Results - Labs Result Diagrams: 04/16/19 17:27 04/16/19 17:27 Lab results: WBC 8.7 thou/uL (4.8-10.8) 04/16/19 17:27 Hgb 11.6 g/dL (14.0-18.0) L 04/16/19 17:27 Hct 34.2 % (42.0-52.0) L 04/16/19 17:27 MCV 92.2 fL (78.0-98.0) 04/16/19 17:27 Plt Count 191 thou/uL (130-400) 04/16/19 17:27 Neutrophils % 72.8 % (42.0-75.0) 04/16/19 17:27 Sodium 141 mmol/L (136-145) 04/16/19 17:27 Potassium 3.3 mmol/L (3.5-5.1) L 04/16/19 17:27 Chloride 101 mmol/L (98-107) 04/16/19 17:27 Carbon Dioxide 29 mmol/L (22-29) 04/16/19 17:27 BUN 16 mg/dL (8.4-25.7) 04/16/19 17:27 Creatinine 1.08 mg/dL (0.7-1.3) 04/16/19 17: Glucose 64 mg/dL (70-105) L 04/16/19 17:27 Calcium 8.3 mg/dL (7.8-10.44) 04/16/19 17:27 Total Bilirubin 0.4 mg/dL (0.2-1.2) 04/16/19 17:27 AST 16 U/L (5-34) 04/16/19 17:27 ALT 15 U/L (8-55) 04/16/19 17:27 Alkaline Phosphatase 63 U/L (40-110) 04/16/19 17:27 CK-MB (CK-2) 2.8 ng/mL (0-6.6) 04/16/19 17:27 Serum Total Protein 7.3 g/dL (6.0-8.3) 04/16/19 17:27 Albumin 4.0 g/dL (3.5-5.0) 04/16/19 17:27 Urine Ketones Negative mg/dL (Negative) 04/16/19 19:27 Urine Blood Negative (Negative) 04/16/19 19:27 Urine Nitrite Negative (Negative) 04/16/19 19:27 Ur Leukocyte Esterase Negative Orion/uL (Negative) 04/16/19 19:27 FMR H&P: A/P - Problem List (1) Elevated troponin Current Visit: Yes Status: Acute Code(s): R79.89 - OTHER SPECIFIED ABNORMAL FINDINGS OF BLOOD CHEMISTRY (2) DM2 (diabetes mellitus, type 2) Current Visit: Yes Status: Chronic (3) Depression Current Visit: Yes Status: Chronic Code(s): F32.9 - MAJOR DEPRESSIVE DISORDER, SINGLE EPISODE, UNSPECIFIED (4) GERD (gastroesophageal reflux disease) Current Visit: Yes Status: Chronic Code(s): K21.9 - GASTRO-ESOPHAGEAL REFLUX DISEASE WITHOUT ESOPHAGITIS (5) HLD (hyperlipidemia) Current Visit: Yes Status: Chronic Code(s): E78.5 - HYPERLIPIDEMIA, UNSPECIFIED (6) HTN (hypertension) Current Visit: Yes Status: Chronic Code(s): I10 - ESSENTIAL (PRIMARY) HYPERTENSION (7) Intellectual disability Current Visit: Yes Status: Chronic Code(s): F79 - UNSPECIFIED INTELLECTUAL DISABILITIES (8) Obesity Current Visit: Yes Status: Chronic Code(s): E66.9 - OBESITY, UNSPECIFIED (9) Paroxysmal A-fib Current Visit: Yes Status: Chronic Code(s): I48.0 - PAROXYSMAL ATRIAL FIBRILLATION - Plan 58 y/o M with a pmhx of DM II, HTN, A fib, admitted to tele obs for recent falls and indeterminant troponin levels. 1. Elevated Troponin, ACS rule out - Trop 0.054, trending - fasting lipid panel in AM - ordered TTE, new onset pitting edema. 2. Recent falls, near syncope, most likely orthostatic hypotension - orthostatic BP's readings supine: 176/69, sitting 169/84, standin/67. No rise in HR. - dizziness upon rapid standing. - low back pain from fall yesterday. L-spine x-ray neg for fx or acute process. stable degenerative changes. - Holding HCTZ and doxazosin as the may be contributing to orthostatic BP. - gave 500 ml bolus, as pt appears dehydrated. 3. Hx of HTN - continue home medications 4. Hx of DM II - ACHS accuchecks - continue home medications 5. Depression - continue home medications 6. A fib, paroxysmal - continue home medications. Pt not in RVR currently. - Continue ASA, no other anticoagulation due to fall risk. Code status: Full code diet: CC dvt ppx: SCD's Dispo: stable, admit to tele obs for indeterminant trops for ACS rule out FMR H&P: Upper Level - Plan Date/Time: 04/16/192000 PCP: Basia HPI: This is a 58 yo M with long medical history being admitted for recurrent falls. PMH includes intellectual disability, chronic back pain, DM2, anemia, htn, paroxysmal afib, and alina. He comes in because he thinks he has been falling more often over the last 2 weeks. He fell yesterday when taking out the trash. Falls have a been an issue over the last year or so, he has been going to PT and started using a walker in the last few months. He states he sometimes feels weaker on the left side more than the right. He denies CP, SOB, or palpitations. REVIEW OF SYSTEMS: Gen: no fever, chills, or sweats Neuro: denies headache Eyes: no visual changes ENT: no hearing changes, no sore throat, no congestion Resp: denies cough, SOB Card: denies CP, palpitations GI: no abdominal pain, no N/V/D Skin: no rash, no erythema PHYSICAL EXAMINATION: General: NAD, alert and oriented x3 HEENT: PERRLA, EOMI, normal sclera, oropharynx without erythema or exudate Neck: Supple. Full ROM. Heart/Cardiovascular System: RRR, Cap refill < 3 seconds, no rub, no murmur Lungs/Respiratory System: CTA-B, no resp distress Abdomen/Gastro-Intestinal System: normal bowel sounds, nontender Extremities: Warm extremities. No cyanosis or edema Neuro: No gross deficits appreciated. CN 2-12 grossly intact Psychiatry: Awake, Alert and cooperative with exam Skin: no rashes, ulcers Musculoskeletal: Full ROM A/P: # Orthostatic Hypotension, recurrent falls - Positive drop in systolic pressure when standing up - Gentle fluid resuscitation, hold doxazosin, hydralazine - TIA is possible but seems less likely based on long history of issues with falls, NIHSS: 0 - Trop 0.052, trend - Old RBBB - Likely good candidate for inpt rehab # Paroxysmal a fib - No anticoagulation bc of falls - tele # HTN - last clinic note indicates home logs indicated BP well controlled - add back home meds after fluids # Lower ext edema - up 2kg in last month - gentle fluids - check BNP, echo # DM2, ALINA, back pain - home meds Fluids: TKO Code status: full PPx: scd Dispo: obs
[2019-04-16] MEDS ORDERED: Aspirin Chewable 81 MG TAB ONE (20:07)
--- NOTE | 2019-04-16 20:20 | CT ---
HEAD CT WITHOUT CONTRAST: Date: 04-16-2019 Comparison: None. History: Recent fall, weakness. Technique: Axial CT imaging at 5 mm intervals from vertex through the skull base without contrast. FINDINGS: There is multifocal ill-defined periventricular, deep, and subcortical white matter hypodensity, evid ence of significant small vessel disease. The imaged paranasal sinuses and mastoid air cells demonstr ate partial opacification of the mastoid air cells bilaterally. There is soft tissue debris filling b ilateral external auditory canals. No displaced calvarial fracture. No intracranial hemorrhage, midli ne shift, mass effect or ventricular enlargement. IMPRESSION: Small vessel disease. No intracranial hemorrhage. POS: PARVIN
[2019-04-16 21:11] LABS: Troponin I 0.059 ng/mL (< 0.028)
[2019-04-16] MEDS ORDERED: Nitroglycerin 0.4 MG TAB (25 Tab Bottle) PO PRN (22:10)
[2019-04-16] MEDS ORDERED: Acetaminophen 500 MG TAB PO PRN (22:19)
[2019-04-16] MEDS ORDERED: Lactated Ringer's 500 ML IV SCH (22:45)
[2019-04-16 23:51] LABS: Troponin I 0.052 ng/mL (< 0.028)
[2019-04-17 06:03] LABS: Troponin I 0.071 ng/mL (< 0.028)
--- NOTE | 2019-04-17 06:25 | PDOC.FM ---
- Subjective Subjective: His blood pressure is elevated this morning. He says he can tell this morning. He reports he has had swelling in the past. - Objective MAR Reviewed: Yes Vital Signs & Weight: Vital Signs (12 hours) Temp Pulse Resp BP BP BP BP 04/17/19 04:00 98.2 F 73 14 165/83 H 04/16/19 23:49 59 L 17 170/79 H 04/16/19 22:00 169/84 H 138/67 04/16/19 21:34 98.3 F 63 18 184/91 H BP Pulse Ox 04/17/19 04:00 95 04/16/19 23:49 96 04/16/19 22:00 176/69 H 04/16/19 21:34 96 Weight Weight 119.249 kg I&O: 04/15/19 04/16/19 04/17/19 06:59 06:59 06:59 Intake Total 740 Output Total 1300 Balance -560 Result Diagrams: 04/16/19 17:27 04/16/19 17:27 EKG Reviewed by me: Yes (Sinus rhythm with PACs, in the 60s) Phys Exam - Physical Examination Constitutional: NAD HEENT: moist MMs, oral pharynx no lesions Neck: no nodes, supple Respiratory: no wheezing, no rales, no rhonchi, clear to auscultation bilateral Cardiovascular: RRR, no significant murmur Gastrointestinal: soft, positive bowel sounds Musculoskeletal: no edema, pulses present Neurological: moves all 4 limbs Lymphatic: no nodes Psychiatric: normal affect Skin: no rash Dx/Plan (1) Orthostatic hypotension Code(s): I95.1 - ORTHOSTATIC HYPOTENSION Status: Acute (2) Elevated troponin Code(s): R79.89 - OTHER SPECIFIED ABNORMAL FINDINGS OF BLOOD CHEMISTRY Status : Acute (3) Depression Code(s): F32.9 - MAJOR DEPRESSIVE DISORDER, SINGLE EPISODE, UNSPECIFIED Status : Chronic (4) HLD (hyperlipidemia) Code(s): E78.5 - HYPERLIPIDEMIA, UNSPECIFIED Status: Chronic (5) HTN (hypertension) Code(s): I10 - ESSENTIAL (PRIMARY) HYPERTENSION Status: Chronic (6) Angioedema Code(s): T78.3XXA - ANGIONEUROTIC EDEMA, INITIAL ENCOUNTER Status: Acute (7) Atrial fib/flutter, transient Code(s): [id number] - Status: Acute - Plan Plan: 58 y/o M with a pmhx of DM II, HTN, A fib, admitted to tele obs for recent falls and indeterminant troponin levels. 1. Elevated Troponin, ACS rule out Trop 0.054 > 0.054 > 0.071, will trend * EKG: old RBBB * fasting lipid panel wnl * Will monitor * Likely consult cardiology 2. Orthostatic Hypotension with Recurrent Falls Dizziness upon rapid standing * Orthostatics Positive * BP's readings supine: 176/69, sitting 169/84, standin/67. No rise in HR. * Low back pain from fall yesterday * L-spine x-ray: neg for fx or acute process. stable degenerative changes. * Holding doxazosin as the may be contributing to orthostatic BP. Decresed coreg * s/p 500 ml bolus, for dehydration * TIA is possible but seems less likely based on long history of issues with falls, NIHSS: 0 * Likely good candidate for inpt rehab 3. 6. A fib, paroxysmal Pt not in RVR currently. * Continue home medications * Continue ASA, no other anticoagulation due to fall risk * Telemetry monitoring 4. Lower Extremity Edema, New Onset Gained 2kg in last month * Currently SL * Ordered ECHO * BNP: 103 5. Hx of HTN, Elevated this morning * Continue home medications * Last clinic note indicates home logs indicated BP well controlled 6. Hx of DM II * ACHS accuchecks * continue home medications 7. Depression * Continue home medications Code status: Full Diet: CC Lines: SL DVT PPx: SCDs PCP: ANNE Agosto Dispo: Tele obs, stress and ECHO this morning. LOS < 48H.
[2019-04-17] MEDS ORDERED: glipiZIDE 10 MG TAB PO SCH ×2 (07:30→21:00)
[2019-04-17] MEDS ORDERED: metFORMIN 500 MG TAB PO SCH (08:00)
[2019-04-17] MEDS ORDERED: Ferrous Sulfate 325 MG TAB PO SCH (08:00)
[2019-04-17] MEDS ORDERED: Multivitamin W/ Minerals 1 TAB PO SCH (09:00)
[2019-04-17] MEDS ORDERED: Aspirin 81 mg Enteric Coated Tablet PO SCH (09:00)
[2019-04-17] MEDS ORDERED: Bupropion 150 MG SR TAB PO SCH (09:00)
[2019-04-17] MEDS ORDERED: Potassium Chloride 10 MEQ TAB PO SCH (09:00)
[2019-04-17] MEDS ORDERED: Aspirin 325 mg Enteric Coated Tablet PO SCH (09:00)
[2019-04-17] MEDS ORDERED: Hydrochlorothiazide 25 MG TAB PO SCH (09:00)
[2019-04-17] MEDS ORDERED: Carvedilol 25 MG TAB PO SCH (09:00)
[2019-04-17] MEDS ORDERED: Losartan 25 MG TAB PO SCH (09:00)
[2019-04-17] MEDS ORDERED: Docusate 100 MG CAP PO SCH (09:00)
[2019-04-17] MEDS ORDERED: diphenhydrAMINE 25 MG CAP PO SCH (09:00)
[2019-04-17 11:42] VITALS: TEMP 97.5
--- NOTE | 2019-04-17 12:12 | PRG ---
DATE OF SERVICE: 04/17/2019 Mr. Urrutia is a pleasant 58-year-old man, who was admitted with profound dizziness and orthostatic changes. We did do orthostatic blood pressures on him. He definitely has orthostatic hypotension. We have reduced his blood pressure medications and he is feeling better. We are awaiting the results of the echo and likely discharge him later this afternoon. Job ID: [id number]
[2019-04-17 13:31] VITALS: BP 167/79
[2019-04-17] MEDS ORDERED: Carvedilol 6.25 MG TAB PO SCH (17:00)
[2019-04-17] MEDS ORDERED: Rosuvastatin 20 MG TAB PO SCH (21:00)
--- NOTE | 2019-04-18 04:37 | DIS ---
DATE OF ADMISSION: 04/16/2019 DATE OF DISCHARGE: 04/17/2019 RESIDENT: Dwain Bowles MD ADMITTING ATTENDING: Cuba Ryan MD DISCHARGE ATTENDING: Braeden Inman MD CONSULTS: None. PROCEDURES: * Lumbar spine x-ray on 04/16/2019 showed no fracture, stable degenerative changes. * Brain CT 04/16/2019, showed small vessel disease. No intracranial hemorrhage. * Chest x-ray 04/16/2019, shows no acute cardiopulmonary process. * Echo 04/17/2019, showed EF of 55% to 60%. Left ventricle size is normal. Structurally normal mitral valve, no evidence of stenosis. No evidence of mitral regurg. Structurally normal aortic valve with no significant stenosis or regurgitation. PRIMARY DIAGNOSES: 1. Elevated troponin. 2. Orthostatic hypotension with recurrent falls 3. Atrial fibrillation 4. Lower extremity edema. SECONDARY DIAGNOSES: 1. History of hypertension. 2. History of diabetes. 3. Depression. DISCHARGE MEDICATIONS: 1. Carvediolol 6.25 from 25 mg BID 2. Metformin 1 g BID 3.Hydralazine 100 mg TID 4. Glipizide 10 mg daily 5. Buproprion 150 mg BID 6. Losartan 100 mg 7. KCl 10 meq 8. Ferrous Sulfate 325 mg 9. ASA 81 mg DISCONTINUED MEDICATIONS: 1. Doxazosin HISTORY OF PRESENT ILLNESS: 58 y/o male with pmhx of a fib, htn, dm, depression and frequent falls here today for falling yesterday and feeling unsteady in his gait. He was taking the trash out when he fell backwards landing on his buttocks. C/o low back pain and buttocks pain. Denies hitting his head. or injuring any other structure. Pt states he feels light headed when he stands or walks. This has been an ongoing problem for the past 2 weeks, when he has noticed an increase in his falls. Pt c/o allergies, with runny nose and slight dry cough. Pt sleeps with CPAP machine at night. Denies CP, SOB, N/V/D. 1. Elevated troponin. The patient had no symptoms of chest pain at this time. Troponin's trended down during hospital stay. * Acute coronary syndrome rule out. * Troponins indeterminate * EKG showed old right bundle branch block. * Fasting lipid panel was within normal limits. 2. Orthostatic hypotension with recurrent falls, dizziness upon rapid standing. * Orthostatics were positive. * Low back pain from fall. * Imaging as noted above. No new acute process. * We will stop doxazosin as it may be contributing to orthostatic blood pressures, * Decreased Coreg dosing from 25 to 6.125. * He was given a 500 mL bolus. * NIH score of zero, so unlikely related to TIA likelihood. 3. Atrial fibrillation, paroxysmal. * The patient currently not on RVR. * Continue home medications. * Continue aspirin. * No other anticoagulation due to fall risk. 4. Lower extremity edema. * He gained 2 pounds in the last month, currently same weight. * Echo as noted above. * BNP was 103. 5. History of hypertension, elevated this morning. * Continue home medications. * Last clinic note indicated blood pressure is well controlled. 6. History of diabetes. * Continue home medications. 7. Depression. * Continue home medications. DISPOSITION: Stable. DISCHARGE INSTRUCTIONS: 1. Location: Home. 2. Diet: Diabetic, heart healthy. 3. Activity: As tolerated. The patient was set up with outpatient PT. The patient was told not to drive until cleared by PCP. 4. Followup: With [place] [facility], Dr. Agosto in 7 days. Job ID: [id number] [facility]
== END 2019-04-17 15:59 | disposition home or self-care (01) ==
LOC: ERS 15:22 → 2SW 20:25
PROVIDERS: ADMIT Family Medicine; ATTEND Family Medicine
DX: I95.1 Orthostatic hypotension (principal); R79.89 Other specified abnormal findings of blood chemistry; I48.0 Paroxysmal atrial fibrillation; R60.0 Localized edema; I10 Essential (primary) hypertension; E11.9 Type 2 diabetes mellitus without complications; F32.9 Major depressive disorder, single episode, unspecified; G47.33 Obstructive sleep apnea (adult) (pediatric); K76.0 Fatty (change of) liver, not elsewhere classified; E78.5 Hyperlipidemia, unspecified; F79 Unspecified intellectual disabilities; G89.29 Other chronic pain; M54.9 Dorsalgia, unspecified; E66.9 Obesity, unspecified; Z68.37 Body mass index [BMI] 37.0-37.9, adult; Z79.82 Long term (current) use of aspirin; Z79.84 Long term (current) use of oral hypoglycemic drugs; Z79.899 Other long term (current) drug therapy; Z88.0 Allergy status to penicillin; Z88.7 Allergy status to serum and vaccine; Z88.8 Allergy status to other drugs, medicaments and biological substances; W18.30XA Fall on same level, unspecified, initial encounter
CPT/HCPCS: 36415; 36416; 70450; 71045; 72100; 80053; 80061; 81003; 82553; 83880; 84443; 84484; 85025; 93005; 93306; 94760; 96360; G0378; Q0163

== ENCOUNTER 2019-04-28 18:26 | Emergency (ER) | payer MEDICARE, MEDICAID ==
[2019-04-28] MEDS ORDERED: cloNIDine 0.1 MG TAB ONE (22:48)
== END 2019-04-28 23:36 | disposition home or self-care (01) ==
LOC: ERS 18:26
DX: I11.0 Hypertensive heart disease with heart failure (principal); I50.9 Heart failure, unspecified; E11.9 Type 2 diabetes mellitus without complications; I48.91 Unspecified atrial fibrillation; F41.9 Anxiety disorder, unspecified; F32.9 Major depressive disorder, single episode, unspecified; Z79.899 Other long term (current) drug therapy; Z79.82 Long term (current) use of aspirin; Z79.84 Long term (current) use of oral hypoglycemic drugs
CPT/HCPCS: 93005

== ENCOUNTER 2019-05-13 18:02 | Emergency (ER) | payer MEDICARE, MEDICAID ==
[2019-05-13] MEDS ORDERED: Ketorolac Tromethamine 30 MG/ML VIAL ONE (19:00)
== END 2019-05-13 19:31 | disposition home or self-care (01) ==
LOC: ERS 18:02
DX: S39.012A Strain of muscle, fascia and tendon of lower back, initial encounter (principal); R19.7 Diarrhea, unspecified; E11.9 Type 2 diabetes mellitus without complications; I48.91 Unspecified atrial fibrillation; I11.0 Hypertensive heart disease with heart failure; I50.9 Heart failure, unspecified; F41.9 Anxiety disorder, unspecified; F32.9 Major depressive disorder, single episode, unspecified; X58.XXXA Exposure to other specified factors, initial encounter
CPT/HCPCS: 96372; 99283; J1885

== ENCOUNTER 2019-05-19 05:48 | Emergency (ER) | payer MEDICARE, MEDICAID ==
[2019-05-19] MEDS ORDERED: Acetaminophen 500 MG TAB ONE (06:04)
[2019-05-19 06:23] LABS: #Eosinphils 0.2 thou/uL (0.0-0.7); #Lymphocytes 1.4 thou/uL (1.20-3.40); #Monocytes 0.8 thou/uL (0.11-0.59); %Basophils 0.5 % (0.0-1.0); %Eosinophils 1.8 % (0.0-10.0); %Lymphocytes 17.2 % (21.0-51.0); %Monocytes 9.6 % (0.0-10.0); Hemoglobin 12.3 g/dL (14.0-18.0); Mean Corpuscular HGB CONC 33.2 g/dL (32.0-36.0); Mean Corpuscular Hemoglobin 30.7 pg (27.0-31.0); Mean Corpuscular Volume 92.6 fL (78.0-98.0); Mean Platelet Volume 9.9 fL (7.4-10.4); Platelet Count 193 thou/uL (130-400); RBC Distribution Width 13.4 % (11.5-14.5); White Blood Cell (WBC) Count 8.4 thou/uL (4.8-10.8)
[2019-05-19 06:43] LABS: ALT (SGPT) 13 U/L (8-55); AST (SGOT) 14 U/L (5-34); Albumin 4.1 g/dL (3.5-5.0); Alkaline Phosphatase 66 U/L (40-110); Anion Gap 11 mmol/L (10-20); BUN (Urea Nitrogen) 17 mg/dL (8.4-25.7); Bilirubin, Total 0.5 mg/dL (0.2-1.2); Calc. Creatinine Clearance 0 mL/min (70-130); Calcium 8.4 mg/dL (7.8-10.44); Carbon Dioxide 34 mmol/L (22-29); Chloride 99 mmol/L (98-107); Estimated GFR-MDRD 77; Globulin 2.9 g/dL (2.4-3.5); Glucose 105 mg/dL (70-105); Potassium 3.4 mmol/L (3.5-5.1); Sodium 141 mmol/L (136-145)
--- NOTE | 2019-05-19 07:14 | RAD ---
CHEST 1 VIEW: Date: 05/19/2019 INDICATION: History of fall. COMPARISON: Exam is compared to a prior dated 04/16/2019. FINDINGS: No acute air space opacity or pleural effusion is evident. There is mild cardiomegaly which is stable appearing. No acute osseous abnormality is evident. IMPRESSION: No acute cardiopulmonary abnormality. POS: BH
== END 2019-05-19 06:50 | disposition home or self-care (01) ==
LOC: ERS 05:48
DX: S39.012A Strain of muscle, fascia and tendon of lower back, initial encounter (principal); S50.311A Abrasion of right elbow, initial encounter; R55 Syncope and collapse; I11.0 Hypertensive heart disease with heart failure; I50.9 Heart failure, unspecified; E11.9 Type 2 diabetes mellitus without complications; I48.91 Unspecified atrial fibrillation; F41.9 Anxiety disorder, unspecified; F32.9 Major depressive disorder, single episode, unspecified; W18.30XA Fall on same level, unspecified, initial encounter
CPT/HCPCS: 36415; 36416; 71045; 80053; 85025; 93005

== ENCOUNTER 2019-05-22 20:14 | Emergency (ER) | payer MEDICARE, MEDICAID ==
[2019-05-22 20:59] LABS: #Basophils 0.1 thou/uL (0.0-0.2); #Eosinphils 0.1 thou/uL (0.0-0.7); #Lymphocytes 1.4 thou/uL (1.20-3.40); #Monocytes 0.7 thou/uL (0.11-0.59); #Neutrophils 6.3 thou/uL (1.40-6.50); %Basophils 0.9 % (0.0-1.0); %Eosinophils 1.5 % (0.0-10.0); %Lymphocytes 15.9 % (21.0-51.0); %Monocytes 8.4 % (0.0-10.0); %Neutrophils 73.3 % (42.0-75.0); Hemoglobin 12.3 g/dL (14.0-18.0); Mean Corpuscular HGB CONC 33.8 g/dL (32.0-36.0); Mean Corpuscular Hemoglobin 31.6 pg (27.0-31.0); Mean Corpuscular Volume 93.4 fL (78.0-98.0); Mean Platelet Volume 10.3 fL (7.4-10.4); Platelet Count 192 thou/uL (130-400); RBC Distribution Width 13.4 % (11.5-14.5); Red Blood Cell (RBC) Count 3.91 mill/uL (4.70-6.10); White Blood Cell (WBC) Count 8.7 thou/uL (4.8-10.8)
[2019-05-22 21:10] LABS: Bacteria/HPF None Seen HPF (None Seen); Bilirubin Negative (Negative); Blood, Urine Negative (Negative); Clarity Clear (Clear); Glucose, Urine (Dipstick) Normal (Negative); Leukocyte Negative Leu/uL (Negative); Mucous/LPF 1+ LPF (<2+); Nitrite Negative (Negative); Protein, Urine (Dipstick) 30 mg/dL (Neg-Trace); Squamous Epithelial 0-3 HPF (0-3); Urobilinogen Normal mg/dL (Less than 2); WBC/HPF 0-3 HPF (0-3)
[2019-05-22 21:21] LABS: Anion Gap 16 mmol/L (10-20); BUN (Urea Nitrogen) 18 mg/dL (8.4-25.7); Calc. Creatinine Clearance 0 mL/min (70-130); Calcium 8.5 mg/dL (7.8-10.44); Carbon Dioxide 27 mmol/L (22-29); Chloride 102 mmol/L (98-107); Estimated GFR-MDRD 79; Glucose 99 mg/dL (70-105); Potassium 3.5 mmol/L (3.5-5.1); Sodium 141 mmol/L (136-145)
[2019-05-22 21:45] LABS: CKMB 1.8 ng/mL (0-6.6)
[2019-05-22] MEDS ORDERED: Acetaminophen 500 MG TAB ONE (22:24)
[2019-05-22] MEDS ORDERED: Aspirin Chewable 81 MG TAB ONE (22:24)
--- NOTE | 2019-05-25 11:29 | EKG ---
Test Reason : EMERGENCY EXAM Blood Pressure : / mmHG Vent. Rate : 068 BPM Atrial Rate : 068 BPM P-R Int : 188 ms QRS Dur : 110 ms QT Int : 406 ms P-R-T Axes : 076 -57 015 degrees QTc Int : 431 ms Normal sinus rhythm Left anterior fascicular block Abnormal ECG Confirmed by CARLOS WHITFIELD ([id number]), city editor RIN BLANCO ([id number]) on 05/25/2019 11:28:42 AM Referred By: Confirmed By:CARLOS WHITFIELD
== END 2019-05-22 23:42 ==
LOC: ERS 20:14
DX: G89.29 Other chronic pain (principal); M54.5 Low back pain; R53.1 Weakness; R29.6 Repeated falls; I11.0 Hypertensive heart disease with heart failure; I50.9 Heart failure, unspecified; I48.91 Unspecified atrial fibrillation; E11.9 Type 2 diabetes mellitus without complications; F79 Unspecified intellectual disabilities; F41.9 Anxiety disorder, unspecified; F32.9 Major depressive disorder, single episode, unspecified
CPT/HCPCS: 36415; 80048; 81003; 81015; 82553; 84484; 85025; 93005

== ENCOUNTER 2019-06-19 17:41 | Emergency (ER) | payer MEDICARE, MEDICAID, OTHER ==
[2019-06-19 18:30] LABS: #Eosinphils 0.2 thou/uL (0.0-0.7); #Lymphocytes 1.3 thou/uL (1.20-3.40); #Monocytes 0.7 thou/uL (0.11-0.59); #Neutrophils 6.3 thou/uL (1.40-6.50); %Basophils 0.5 % (0.0-1.0); %Neutrophils 74.5 % (42.0-75.0); Mean Corpuscular HGB CONC 33.3 g/dL (32.0-36.0); Mean Corpuscular Volume 93.1 fL (78.0-98.0); Mean Platelet Volume 10.2 fL (7.4-10.4); Platelet Count 197 thou/uL (130-400); RBC Distribution Width 13.4 % (11.5-14.5); White Blood Cell (WBC) Count 8.5 thou/uL (4.8-10.8)
[2019-06-19 18:50] LABS: ALT (SGPT) 13 U/L (8-55); AST (SGOT) 15 U/L (5-34); Alkaline Phosphatase 77 U/L (40-110); Anion Gap 12 mmol/L (10-20); BUN (Urea Nitrogen) 17 mg/dL (8.4-25.7); Bilirubin, Total 0.5 mg/dL (0.2-1.2); Calc. Creatinine Clearance 0 mL/min (70-130); Calcium 9.3 mg/dL (7.8-10.44); Carbon Dioxide 31 mmol/L (22-29); Chloride 100 mmol/L (98-107); Estimated GFR-MDRD 73; Globulin 3.8 g/dL (2.4-3.5); Glucose 113 mg/dL (70-105); Magnesium 1.7 mg/dL (1.6-2.6); Potassium 3.4 mmol/L (3.5-5.1); Protein, Total 7.8 g/dL (6.0-8.3); Sodium 140 mmol/L (136-145)
[2019-06-19 19:13] LABS: CKMB 1.7 ng/mL (0-6.6)
[2019-06-19] MEDS ORDERED: Ondansetron PF 4 MG/2 ML Vial ONE (19:14)
--- NOTE | 2019-06-19 19:17 | RAD ---
SINGLE VIEW OF THE CHEST: Comparison: 05-19-2019 History: Weakness. Hypertension. Diabetes. FINDINGS: Single view of the chest shows a normal sized cardiomediastinal silhouette. There is no evidence of c onsolidation, mass, or pleural effusion. Degenerative changes are seen in the spine. IMPRESSION: No evidence of acute cardiopulmonary disease. POS: EAA
[2019-06-19 19:30] LABS: Bilirubin Negative (Negative); Blood, Urine Negative (Negative); Clarity Clear (Clear); Glucose, Urine (Dipstick) Normal (Negative); Leukocyte Negative Leu/uL (Negative); Nitrite Negative (Negative); Protein, Urine (Dipstick) Negative (Neg-Trace); Urobilinogen Normal mg/dL (Less than 2)
--- NOTE | 2019-06-19 19:31 | RAD ---
THREE VIEWS SACRAM/COCCYX: Comparison: 12-25-18 History: Generalized weakness for 2-3 days. Fell a few days ago with sacral pain. FINDINGS: Three views of the sacrum/coccyx shows no evidence of displaced sacral or coccygeal fracture. The sac ral ala are symmetric. The sacral iliac joints and pubic symphysis are unremarkable. IMPRESSION: Unremarkable exam. POS: EAA
--- NOTE | 2019-06-23 14:08 | EKG ---
Test Reason : Blood Pressure : / mmHG Vent. Rate : 063 BPM Atrial Rate : 063 BPM P-R Int : 176 ms QRS Dur : 104 ms QT Int : 434 ms P-R-T Axes : 066 -57 -20 degrees QTc Int : 444 ms Normal sinus rhythm Incomplete right bundle branch block Left anterior fascicular block Nonspecific ST and T wave abnormality Abnormal ECG Confirmed by CARLOS WHITFIELD ([id number]), metropolitan editor RIN BLANCO ([id number]) on 06/23/2019 2:07:48 PM Referred By: Confirmed By:CARLOS WHITFIELD
== END 2019-06-19 20:32 | disposition home or self-care (01) ==
LOC: ERS 17:41
DX: R53.1 Weakness (principal); E11.9 Type 2 diabetes mellitus without complications; I48.91 Unspecified atrial fibrillation; I50.9 Heart failure, unspecified; F32.9 Major depressive disorder, single episode, unspecified; F41.9 Anxiety disorder, unspecified; Z79.82 Long term (current) use of aspirin; Z79.84 Long term (current) use of oral hypoglycemic drugs; Z79.899 Other long term (current) drug therapy
CPT/HCPCS: 71045; 72220; 80053; 81003; 82553; 83605; 83735; 84484; 85025; 87040; 93005; 94760; 96361; 96374; 99285; J2405; 36415

== ENCOUNTER 2019-06-20 11:22 | Observation (INO) | payer MEDICARE, MEDICAID ==
[2019-06-20 12:22] LABS: #Eosinphils 0.1 thou/uL (0.0-0.7); #Lymphocytes 1.1 thou/uL (1.20-3.40); #Monocytes 0.8 thou/uL (0.11-0.59); #Neutrophils 8.2 thou/uL (1.40-6.50); %Basophils 0.4 % (0.0-1.0); %Eosinophils 1.2 % (0.0-10.0); %Monocytes 7.6 % (0.0-10.0); %Neutrophils 79.8 % (42.0-75.0); Hemoglobin 12.3 g/dL (14.0-18.0); Mean Corpuscular HGB CONC 32.8 g/dL (32.0-36.0); Mean Corpuscular Hemoglobin 30.2 pg (27.0-31.0); Mean Corpuscular Volume 91.9 fL (78.0-98.0); Mean Platelet Volume 9.4 fL (7.4-10.4); Platelet Count 188 thou/uL (130-400); RBC Distribution Width 13.2 % (11.5-14.5); Red Blood Cell (RBC) Count 4.06 mill/uL (4.70-6.10); White Blood Cell (WBC) Count 10.3 thou/uL (4.8-10.8)
--- NOTE | 2019-06-20 12:38 | RAD ---
EXAM: XR Lumbar Spine 2 Or 3 View PROVIDED CLINICAL HISTORY: Low back pain after injury. Weakness. COMPARISON: 04/16/2019 FINDINGS: 6 nonrib-bearing lumbar-type vertebral bodies are present. Multilevel degenerative changes are seen t hroughout the lumbar spine with multilevel osteophytes and narrowing of the intervertebral disc spaces at all levels of the lumbar spine. The vertebral body heights are within normal limits, and no fracture or subluxation is seen involving the lumbar spine. Lumbar spine is overall unchanged compared to prior exam. IMPRESSION: Multilevel degenerative changes throughout the lumbar spine which have not significantly progressed f rom prior study.
[2019-06-20 12:39] LABS: Bilirubin Negative (Negative); Blood, Urine Negative (Negative); Clarity Clear (Clear); Glucose, Urine (Dipstick) Normal (Negative); Leukocyte Negative Leu/uL (Negative); Nitrite Negative (Negative); Protein, Urine (Dipstick) Negative (Neg-Trace); Urobilinogen Normal mg/dL (Less than 2)
--- NOTE | 2019-06-20 12:40 | RAD ---
EXAM: CHEST ONE VIEW HISTORY: Weakness COMPARISON: 06/19/2019 FINDINGS: Cardiac silhouette is magnified by projection but stable in size. Pulmonary vasculature is within nor mal limits lungs remain clear. Degenerative changes are again seen in the spine. IMPRESSION: No acute cardiopulmonary process.
[2019-06-20 12:44] LABS: ALT (SGPT) 11 U/L (8-55); AST (SGOT) 13 U/L (5-34); Albumin 3.7 g/dL (3.5-5.0); Alkaline Phosphatase 72 U/L (40-110); Anion Gap 14 mmol/L (10-20); BUN (Urea Nitrogen) 10 mg/dL (8.4-25.7); Bilirubin, Total 0.5 mg/dL (0.2-1.2); CK (CPK) 91 U/L (30-200); Calc. Creatinine Clearance 0 mL/min (70-130); Calcium 8.9 mg/dL (7.8-10.44); Carbon Dioxide 29 mmol/L (22-29); Chloride 99 mmol/L (98-107); Estimated GFR-MDRD Greater than 90; Globulin 3.4 g/dL (2.4-3.5); Glucose 71 mg/dL (70-105); Potassium 3.1 mmol/L (3.5-5.1); Protein, Total 7.1 g/dL (6.0-8.3); Sodium 139 mmol/L (136-145)
[2019-06-20 13:10] LABS: CKMB 2.1 ng/mL (0-6.6)
[2019-06-20] MEDS ORDERED: traMADol HCl 50 MG TAB ONE (15:18)
[2019-06-20 15:38] LABS: Troponin I 0.079 ng/mL (< 0.028)
[2019-06-20] MEDS ORDERED: Aspirin Chewable 81 MG TAB ONE (16:14)
--- NOTE | 2019-06-20 16:42 | PDOC.FPRHP ---
- History of Present Illness Chief Complaint: SOB, Generalized Weakness History of Present Illness: Patient is a 58 yo male with a history of multiple recent inpatient rehab facility stays in past year who presents today with predominant complaint of general weakness. He has fallen multiple times in the past several weeks per his PCP Dr. Agosto at [facility]. Most recently he Pt fell on L side on Sat night after feeling very weak and has had pain in his bottom since stating that it felt "sore". Pt states he became SOB this morning, thought he was more weak, and didn 't want to eat or do anything. He was found in this condition by home health nurse who called the patient's PCP who then recommended patient be taken to ED for further evaluation. Pt was given baby asa at the nursing home he currently resides at and this helped the pain in his bottom where he fell from Wednesday. Pt denies heartburn or indigestion, diarrhea, vomiting. Did have some nausea earlier today but did eat oatmeal for breakfast. States that he actually feels hungry now and would like something to eat. Pt additionally c/o allergies and runny nose for past several weeks. Pt reports a subjective slight fever earlier today but cannot recall actual temperature. Lives in nursing home. No known sick contacts. ED Course: Given 324 mg ASA, 50 mg Tramadol - Allergies/Adverse Reactions Allergies Allergy/AdvReac Type Severity Reaction Status Date / Time Penicillins Allergy Unknown Verified 06/20/19 19:49 lisinopril Allergy Verified 06/20/19 19:49 pneumococcal vaccine Allergy Verified 06/20/19 19:49 [From Pneumovax 23] - Home Medications Medication Instructions Recorded Confirmed Type Aspirin [Ecotrin Regular Strength] 81 mg PO DAILY 08/12/17 04/16/19 History Esomeprazole Magnesium [Nexium] 40 mg PO DAILY 08/12/17 04/16/19 History Hydrochlorothiazide 50 mg PO DAILY 08/12/17 04/16/19 History Rosuvastatin [Crestor] 20 tab PO HS 08/12/17 04/16/19 History buPROPion HCl [Bupropion HCl Sr] 150 mg PO BID 08/12/17 04/16/19 History diphenhydrAMINE [Benadryl] 25 mg PO DAILY 08/12/17 04/16/19 History glipiZIDE [Glipizide] 0.5 tab PO HS 08/12/17 04/16/19 History Multivit-Min/FA/Lycopen/Lutein 1 tablet PO DAILY 08/08/18 04/16/19 History [Sentry Senior] metFORMIN HCl [Metformin HCl] 1,000 mg PO BID 08/08/18 04/16/19 History Potassium Chloride [K-Dur] 10 meq PO DAILY 08/30/18 04/16/19 History hydrALAZINE HCl 100 mg PO TID 08/30/18 04/16/19 History Acetaminophen [Tylenol Extra 1,000 mg PO Q6HR PRN 04/16/19 04/16/19 History Strength] Docusate Sodium 100 mg PO DAILY 04/16/19 04/16/19 History Ferrous Sulfate 325 mg PO DAILY 04/16/19 04/16/19 History Losartan [Cozaar] 100 mg PO DAILY 04/16/19 04/16/19 History glipiZIDE 10 mg PO DAILY-AC 04/16/19 04/16/19 History Carvedilol [Coreg] 6.25 mg PO BID-WM 30 Days #60 tab 04/17/19 Rx - History PMHx:DM type 2, HLD, HTN, depression, ALINA, hx of ELVIS induced angioedema, fatty liver, hypocalcemia, iron def anemia(pending GI workup), paroxysmal a fib, hx of a flutter PSHx: A flutter ablation 2006, 2009, 2011; 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 - Review of Systems General: reports: fever/chills, fatigue ENT: reports: nasal congestion, rhinorrhea Respiratory: reports: congestion, shortness of breath, exercise intolerance. denies: cough Cardiovascular: reports: chest pain (improved with baby asa), palpitation Gastrointestinal: reports: nausea, diarrhea. denies: vomiting, abdominal pain Skin: denies: rashes, jaundice Musculoskeletal: reports: pain, tenderness (bottom from fall on Sat). denies: swelling Neurological: reports: weakness (generalized). denies: syncope - Vital signs BP: 156/94 HR: 64 RR: 18 Tmax: 97.7 F Pox: 97% on ra Wt: 108 kg - Physical Exam Constitutional: NAD, awake, alert and oriented -Constitutional: slight intellectual disability. HEENT: normocephalic and atraumatic, EOMI, conjunctiva clear, no scleral icterus , grossly normal vision, grossly normal hearing, normal nasal mucosa, MMM Neck: supple, trachea midline, no JVD Chest: no-tender to palpation, no lesions Heart: RRR, normal S1/S2, pulses present -Heart: 1+ nonpitting edema in bilateral LE, grade II systolic murmur over aortic valve Lungs: CTAB, no respiratory distress, no rales/rhonchi, no wheezing Abdomen: soft, non-tender, bowel sounds present, no masses/distention Musculoskeletal: normal structure, normal tone, ROM grossly normal -Musculoskeletal: strength 4/5 in all extremities Neurological: no focal deficit, normal sensation Skin: no rash/lesions, good turgor, no jaundice Heme/Lymphatic: no unusual bruising or bleeding Psychiatric: normal mood and affect FMR H&P: Results - Labs Result Diagrams: 06/20/19 12:12 06/20/19 12:12 Lab results: WBC 10.3 thou/uL (4.8-10.8) 06/20/19 12:12 Hgb 12.3 g/dL (14.0-18.0) L 06/20/19 12:12 Hct 37.3 % (42.0-52.0) L 06/20/19 12:12 MCV 91.9 fL (78.0-98.0) 06/20/19 12:12 Plt Count 188 thou/uL (130-400) 06/20/19 12:12 Neutrophils % 79.8 % (42.0-75.0) H 06/20/19 12:12 Sodium 139 mmol/L (136-145) 06/20/19 12:12 Potassium 3.1 mmol/L (3.5-5.1) L 06/20/19 12:12 Chloride 99 mmol/L (98-107) 06/20/19 12:12 Carbon Dioxide 29 mmol/L (22-29) 06/20/19 12:12 BUN 10 mg/dL (8.4-25.7) 06/20/19 12:12 Creatinine 0.82 mg/dL (0.7-1.3) 06/20/19 12:12 Glucose 71 mg/dL (70-105) 06/20/19 12:12 Calcium 8.9 mg/dL (7.8-10.44) 06/20/19 12:12 Total Bilirubin 0.5 mg/dL (0.2-1.2) 06/20/19 12:12 AST 13 U/L (5-34) 06/20/19 12:12 ALT 11 U/L (8-55) 06/20/19 12:12 Alkaline Phosphatase 72 U/L (40-110) 06/20/19 12:12 Creatine Kinase 91 U/L (30-200) 06/20/19 12:12 CK-MB (CK-2) 2.1 ng/mL (0-6.6) 06/20/19 12:12 B-Natriuretic Peptide 123.9 pg/mL (0-100) H 06/20/19 12:12 Serum Total Protein 7.1 g/dL (6.0-8.3) 06/20/19 12:12 Albumin 3.7 g/dL (3.5-5.0) 06/20/19 12:12 Urine Ketones Negative mg/dL (Negative) 06/20/19 12:18 Urine Blood Negative (Negative) 06/20/19 12:18 Urine Nitrite Negative (Negative) 06/20/19 12:18 Ur Leukocyte Esterase Negative Orion/uL (Negative) 06/20/19 12:18 - Radiology Interpretation Chest x-ray Status: report reviewed by me (no acute process) Other Status: report reviewed by me (XR Lumbar spine: chronic degenerative changes with no acute changes) FMR H&P: A/P - Problem List (1) Generalized weakness Current Visit: Yes Status: Acute Code(s): R53.1 - WEAKNESS (2) Elevated troponin Current Visit: No Status: Acute Code(s): R79.89 - OTHER SPECIFIED ABNORMAL FINDINGS OF BLOOD CHEMISTRY - Plan Patient is a 58 yo male who presents with general weakness and SOB: #Generalized weakness with physical deconditioning - reported hx of multiple falls, has had multiple inpatient rehab stays in past year. Most recently he was pulled out of rehab too early before recommended discharge d/t social issues - Previously accepted to [facility] per patient's PCP at [facility] - Ordered PT/OT to eval/treat - CM consulted for placement at inpatient rehab vs SNF #Indeterminate troponin - Appears to be near baseline, will trend trops 0.064 > 0.079, repeat pending for 1799 & 2099 - HEART score of 2 and no stress test indications at this time - primary resaw carriage operator Dr. Zamudio, consider consult if patient clinically warrants -echo with EF of 55-60% in Apr 2019 -cardiac cath in 2014 clear with slight R sided distal occlusions. No major stenosis. -euvolemic on exam PCP: AARON Agosto Diet: HH VTE: Lovenox, SCDs Code status: FULL CODE, confirmed with both patient and Dispo: Stable, will admit to obs on telemetry unit overnight with hopeful discharge to inpatient rehab vs SNF in AM. FMR H&P: Upper Level - Plan Date/Time: 06/20/19 1641 I, Jeremie Meehan MD, have evaluated this patient and agree with findings/ plan as outlined by real estate internship resident. Pertinent changes/additions are listed here. 1. Generalized weakness with physical deconditioning and multiple falls - Previously accepted to [facility] - Ordered PT/OT - CM consulted 2. Indeterminate troponin - Appears to be at baseline - HEART score of 2 and no stress test indications at this time - Consider conversation with primary resaw carriage operator Dr. Zamudio PCP: AARON Agosto CODE STATUS: FULL CODE and confirmed with Disposition: Stable, will admit to telemetry observation overnight with hopeful discharge to SNF in AM. Addendum - Attending - Attending Attestation Date/Time: 06/20/19 7226 I personally evaluated the patient and discussed the management with Dr. Lopez I agree with the History, Examination, Assessment and Plan documented above with any addition or exceptions noted below - 58 yo male with h/o of A-fib, HTN , type 2 DM, ALINA presented c/o SOB x 1 day. Also c/o weakness; had a recent stay at rehab but left early per family request; had a fall on Wednesday. Denies any chest pain, cough, fever. Has had some nausea for the last day and diarrhea last night. PMH/PSH/Meds/SH reviewed and agree with resident's documentation. Afebrile BP 172/83 P65 RR18 95% RA Exam repeated by me and agree with resident's findings. Labs: H/H=12.3/37.3, Up=572, K=3.1, BUN/Cr=10/0.82, Gluc=71 , ZCW=277.9, trop I 0.064, 0.079, 0.079. A/P: 1) Dyspnea with elevated trop- ? ACS equivalent- Place in obs and trend cardiac enzymes, 2) Deconditioning with recent fall - PT/OT eval; possible placement in rehab or SNF, 3) HTN- cont. home meds.
[2019-06-20] MEDS ORDERED: Ondansetron ODT 4 MG TAB SL PRN (18:19)
[2019-06-20] MEDS ORDERED: Ondansetron PF 4 MG/2 ML Vial IVP PRN ×2 (18:19→18:58)
[2019-06-20 18:36] LABS: Troponin I 0.079 ng/mL (< 0.028)
[2019-06-20] MEDS ORDERED: Senokot S 8.6-50 MG TAB PO PRN (18:58)
[2019-06-20 20:11] VITALS: BMI 32.3
[2019-06-20 21:10] LABS: Hemoglobin A1c 5.3 % (4.0-6.0)
[2019-06-20] MEDS: Famotidine 20 MG TAB PO SCH (21:12)
[2019-06-20] MEDS: Acetaminophen 325 MG TAB PO PRN (21:12)
[2019-06-20 21:26] LABS: Magnesium 1.5 mg/dL (1.6-2.6); Phosphorus 3.8 mg/dL (2.3-4.7)
[2019-06-20 21:27] LABS: Troponin I 0.065 ng/mL (< 0.028)
[2019-06-21] MEDS ORDERED: Acetaminophen 500 MG TAB PO PRN (02:47)
[2019-06-21] MEDS ORDERED: Potassium Chloride 20 MEQ TAB PO SCH ×2 (03:00→06:00)
[2019-06-21] MEDS ORDERED: Magnesium Sulfate 3 GM in Sodium Chloride 0.9% 100 ML IVPB SCH (03:00)
[2019-06-21] MEDS ORDERED: Magnesium 2 GM/50 ML 2 GM in Premix Bag 1 BAG IVPB SCH (03:30)
[2019-06-21 04:42] LABS: #Basophils 0.1 thou/uL (0.0-0.2); #Eosinphils 0.1 thou/uL (0.0-0.7); #Lymphocytes 1.6 thou/uL (1.20-3.40); #Monocytes 0.7 thou/uL (0.11-0.59); #Neutrophils 4.4 thou/uL (1.40-6.50); %Lymphocytes 22.7 % (21.0-51.0); %Monocytes 10.6 % (0.0-10.0); %Neutrophils 63.7 % (42.0-75.0); Hemoglobin 11.6 g/dL (14.0-18.0); Mean Corpuscular HGB CONC 32.5 g/dL (32.0-36.0); Mean Corpuscular Hemoglobin 30.2 pg (27.0-31.0); Mean Corpuscular Volume 92.9 fL (78.0-98.0); Mean Platelet Volume 10.2 fL (7.4-10.4); Platelet Count 184 thou/uL (130-400); RBC Distribution Width 13.2 % (11.5-14.5); Red Blood Cell (RBC) Count 3.86 mill/uL (4.70-6.10)
[2019-06-21 05:04] LABS: ALT (SGPT) 10 U/L (8-55); AST (SGOT) 13 U/L (5-34); Albumin 3.5 g/dL (3.5-5.0); Alkaline Phosphatase 66 U/L (40-110); Anion Gap 13 mmol/L (10-20); BUN (Urea Nitrogen) 12 mg/dL (8.4-25.7); Bilirubin, Total 0.5 mg/dL (0.2-1.2); Calc. Creatinine Clearance 141 mL/min (70-130); Calcium 8.7 mg/dL (7.8-10.44); Carbon Dioxide 30 mmol/L (22-29); Cardiac Risk 2.9 (Less than 4.5); Chloride 99 mmol/L (98-107); Cholesterol 102 mg/dl (< 200 Desired); Estimated GFR-MDRD Greater than 90; Globulin 3.2 g/dL (2.4-3.5); Glucose 85 mg/dL (70-105); HDL Cholesterol 35 mg/dL (>60 Neg Risk); LDL Cholesterol, Calculated 42 mg/dL; Protein, Total 6.7 g/dL (6.0-8.3); Sodium 139 mmol/L (136-145); Triglycerides 127 mg/dL (Less than 150)
[2019-06-21 05:07] LABS: Potassium 2.8 mmol/L (3.5-5.1)
[2019-06-21] MEDS ORDERED: Potassium Chloride 20 MEQ in Premix Bag 1 BAG IVPB SCH (06:00)
--- NOTE | 2019-06-21 06:27 | PDOC.FM ---
- Subjective Subjective: Patient is sitting up at bedside this AM. States that he still feels weak, but denies any pain or shortness of breath. He expresses his desire to keep his updated of his condition. He also states that he is willing to work with therapy because he wants to get stronger. His ultimate goal is to be able to complete therapy and then be placed somewhere with his . - Objective MAR Reviewed: Yes Vital Signs & Weight: Vital Signs (12 hours) Temp Pulse Resp BP BP Pulse Ox 06/21/19 04:00 97.9 F 68 20 165/82 H 98 06/21/19 02:30 97.7 F 65 18 151/79 H 97 06/21/19 00:58 95 06/20/19 23:54 99.0 F 76 18 150/71 H 97 Weight Weight 105.324 kg Result Diagrams: 06/21/19 04:21 06/21/19 11:11 Phys Exam - Physical Examination Constitutional: NAD HEENT: moist MMs, sclera anicteric Neck: supple, full ROM Respiratory: no wheezing, clear to auscultation bilateral Cardiovascular: RRR, no significant murmur Gastrointestinal: soft, non-tender, no distention, positive bowel sounds Musculoskeletal: no edema, pulses present Neurological: normal sensation, moves all 4 limbs Psychiatric: normal affect, A&O x 3 Skin: no rash, normal turgor Dx/Plan (1) Generalized weakness Code(s): R53.1 - WEAKNESS Status: Acute (2) Elevated troponin Code(s): R79.89 - OTHER SPECIFIED ABNORMAL FINDINGS OF BLOOD CHEMISTRY Status : Acute - Plan Plan: Patient is a 58 yo male who presents with general weakness and SOB: #Generalized weakness with physical deconditioning - reported hx of multiple falls, has had multiple inpatient rehab stays in past year. Most recently he was pulled out of rehab too early before recommended discharge d/t social issues - Previously accepted to [facility] per patient's PCP at [facility] - Ordered PT/OT to eval/treat - CM consulted for placement at inpatient rehab vs SNF #Indeterminate troponin - Appears to be near baseline, trended trops 0.064 > 0.079 > 0.079 > 0.065 - HEART score of 2 and no stress test indications at this time - primary gas worker Dr. Zamudio, consider consult if patient clinically warrants -echo with EF of 55-60% in Apr 2019 -cardiac cath in 2014 clear with slight R sided distal occlusions. No major stenosis. -euvolemic on exam #Hypokalemia -K 2.8 this AM, Mag 1.5 -will give 40 meq KCl PO and 20 meq KCL IV -give 2 mg IV Magnesium -start 10 meq KCl daily as home med PCP: AARON Agosto Diet: VTE: Lovenox, SCDs Code status: FULL CODE, confirmed with both patient and Dispo: Stable, replace Potassium & Magnesium, hopeful discharge to inpatient rehab vs SNF later today. Addendum - Attending - Attending Attestation Date/Time: 06/21/19 2994 I personally evaluated the patient and discussed the management with Dr. Lopez. I agree with the History, Examination, Assessment and Plan documented above with any addition or exceptions noted below. Chart review shows history of long standing, difficult to control HTN with hypokalemia. Renal US w/ dopplers, renin level, and aldosterone level ordered. Working on fci placement at [place].
[2019-06-21] MEDS: Aspirin 81 mg Enteric Coated Tablet PO SCH (08:39)
[2019-06-21] MEDS: glipiZIDE 10 MG TAB PO SCH ×2 (08:39→20:41)
[2019-06-21] MEDS: Famotidine 20 MG TAB PO SCH (08:39)
[2019-06-21] MEDS: Enoxaparin Sodium 40 MG/0.4 ML SYRINGE SC SCH (08:40)
[2019-06-21] MEDS: Losartan 25 MG TAB PO SCH (08:40)
[2019-06-21] MEDS: Potassium Chloride 10 MEQ TAB PO SCH (08:40)
[2019-06-21] MEDS: Hydrochlorothiazide 25 MG TAB PO SCH (08:40)
[2019-06-21] MEDS: Ferrous Sulfate 325 MG TAB PO SCH (08:41)
[2019-06-21] MEDS: Multivitamin W/ Minerals 1 TAB PO SCH (08:41)
[2019-06-21] MEDS: Carvedilol 6.25 MG TAB PO SCH ×2 (08:41→16:14)
[2019-06-21] MEDS: metFORMIN 500 MG TAB PO SCH ×2 (08:41→20:42)
[2019-06-21] MEDS: hydrALAZINE 25 MG TAB PO SCH ×3 (08:44→20:41)
[2019-06-21] MEDS: Docusate 100 MG CAP PO SCH (08:45)
[2019-06-21 11:39] LABS: Anion Gap 11 mmol/L (10-20); BUN (Urea Nitrogen) 12 mg/dL (8.4-25.7); Calc. Creatinine Clearance 132 mL/min (70-130); Calcium 8.5 mg/dL (7.8-10.44); Carbon Dioxide 30 mmol/L (22-29); Chloride 101 mmol/L (98-107); Estimated GFR-MDRD 86; Glucose 142 mg/dL (70-105); Potassium 3.6 mmol/L (3.5-5.1); Sodium 138 mmol/L (136-145)
--- NOTE | 2019-06-21 14:02 | EKG ---
Test Reason : URGENT Blood Pressure : / mmHG Vent. Rate : 062 BPM Atrial Rate : 062 BPM P-R Int : 188 ms QRS Dur : 116 ms QT Int : 420 ms P-R-T Axes : 056 -56 058 degrees QTc Int : 426 ms Sinus rhythm with marked sinus arrhythmia possible blocked PAC Incomplete right bundle branch block Nonspecific ST-T changes Abnormal ECG When compared with ECG of 19-JUN-2019 18:28, (Unconfirmed) Nonspecific T wave abnormality no longer evident in Inferior leads Confirmed by DR. Dianna LAZCANO ([id number]) on 06/21/2019 2:02:21 PM Referred By: MARJORIE Confirmed By:DR. Dianna LAZCANO
--- NOTE | 2019-06-21 16:15 | ULT ---
Renal sonogram with duplex evaluation HISTORY: Hypertension. FINDINGS: Right kidney is 11.3 cm length and the left is 11.2 cm. Each has a normal sonographic appea maria elena without evidence of mass, stone, or hydronephrosis. Urinary bladder decompressed and not well evaluated. Good color and spectral Doppler flow within each renal artery. No abnormally elevated peak systolic v elocities. IMPRESSION : No evidence of urinary tract obstruction. Good arterial flow to each kidney without sonographic evidence of significant stenosis.
[2019-06-21] MEDS: Acetaminophen 325 MG TAB PO PRN (18:52)
[2019-06-21] MEDS: Ondansetron ODT 4 MG TAB PO PRN (20:37)
[2019-06-21] MEDS ORDERED: Rosuvastatin 20 MG TAB PO SCH (21:00)
--- NOTE | 2019-06-22 06:30 | PDOC.FM ---
- Subjective Subjective: Patient resting comfortably in bed this morning. States that he feels a little better but still feels weak. Also concerned that he did not have a bowel movement yesterday but did have one 2 days ago. Patient declines any stool softeners stating he had a bad experience with Miralax in the past. Case Management sent referral to [facility] yesterday, pending clinical review today. - Objective MAR Reviewed: Yes Vital Signs & Weight: Vital Signs (12 hours) Temp Pulse Resp BP BP Pulse Ox 06/22/19 03:25 97.9 F 59 L 18 162/82 H 95 06/21/19 23:31 98.1 F 67 16 143/78 H 95 06/21/19 20:41 55 L 177/84 H 06/21/19 20:00 97.5 F L 55 L 16 177/84 H 94 L Weight Weight 105.324 kg I&O: 06/20/19 06/21/19 06/22/19 06:59 06:59 06:59 Intake Total 600 396 Output Total 300 300 Balance 300 96 Result Diagrams: 06/21/19 04:21 06/22/19 06:34 Phys Exam - Physical Examination Constitutional: NAD HEENT: moist MMs, sclera anicteric Neck: no JVD, supple Respiratory: no wheezing, clear to auscultation bilateral Cardiovascular: RRR, no significant murmur Gastrointestinal: soft, positive bowel sounds Musculoskeletal: no edema, pulses present Neurological: normal sensation, moves all 4 limbs Psychiatric: normal affect, A&O x 3 Skin: no rash, normal turgor Dx/Plan (1) Generalized weakness Code(s): R53.1 - WEAKNESS Status: Acute (2) Elevated troponin Code(s): R79.89 - OTHER SPECIFIED ABNORMAL FINDINGS OF BLOOD CHEMISTRY Status : Acute (3) HTN (hypertension) Code(s): I10 - ESSENTIAL (PRIMARY) HYPERTENSION Status: Chronic Qualifiers: Hypertension type: other secondary hypertension Qualified Code(s): I15.8 - Other secondary hypertension - Plan Plan: Patient is a 58 yo male who presents with general weakness and SOB: #Generalized weakness with physical deconditioning - reported hx of multiple falls, has had multiple inpatient rehab stays in past year. Most recently he was pulled out of rehab too early before recommended discharge d/t social issues - Previously accepted to [facility] per patient's PCP at [facility] - Ordered PT/OT to eval/treat - CM consulted for placement at inpatient rehab vs SNF--sent referral to [facility] on 06/20, per CM note [facility] will review clinicals, hopefully able to transfer today #Indeterminate troponin - Appears to be near baseline, trended trops 0.064 > 0.079 > 0.079 > 0.065 - HEART score of 2 and no stress test indications at this time - primary student affairs dean Dr. Zamudio, consider consult if patient clinically warrants -echo with EF of 55-60% in Apr 2019 -cardiac cath in 2014 clear with slight R sided distal occlusions. No major stenosis. -euvolemic on exam #Hypokalemia -K 2.8 this AM, Mag 1.5 -will give 40 meq KCl PO and 20 meq KCL IV -give 2 mg IV Magnesium -start 10 meq KCl daily as home med -monitor with BMP #Hypertension -patient with longstanding HTN per hospital and clinic records despite being on 4 BP meds -Renal U/S on 06/20-negative -Renin & Aldosterone collected and pending PCP: AARON Agosto Diet: HH VTE: Lovenox, SCDs Code status: FULL CODE, confirmed with both patient and Dispo: Stable, hopeful discharge to [facility] later today. Addendum - Attending - Attending Attestation Date/Time: 06/22/19 1520 I personally evaluated the patient and discussed the management with Dr. Lopez I agree with the History, Examination, Assessment and Plan documented above with any addition or exceptions noted below. d/c to OR today.
[2019-06-22 07:00] LABS: Anion Gap 13 mmol/L (10-20); BUN (Urea Nitrogen) 12 mg/dL (8.4-25.7); Calc. Creatinine Clearance 141 mL/min (70-130); Calcium 8.5 mg/dL (7.8-10.44); Carbon Dioxide 28 mmol/L (22-29); Chloride 101 mmol/L (98-107); Estimated GFR-MDRD Greater than 90; Glucose 73 mg/dL (70-105); Potassium 3.6 mmol/L (3.5-5.1); Sodium 138 mmol/L (136-145)
[2019-06-22] MEDS: hydrALAZINE 25 MG TAB PO SCH ×2 (08:58→16:17)
[2019-06-22] MEDS: glipiZIDE 10 MG TAB PO SCH (08:58)
[2019-06-22] MEDS: Hydrochlorothiazide 25 MG TAB PO SCH (09:01)
[2019-06-22] MEDS: Potassium Chloride 10 MEQ TAB PO SCH (09:01)
[2019-06-22] MEDS: Ferrous Sulfate 325 MG TAB PO SCH (09:02)
[2019-06-22] MEDS: Multivitamin W/ Minerals 1 TAB PO SCH (09:02)
[2019-06-22] MEDS: Carvedilol 6.25 MG TAB PO SCH ×2 (09:02→16:17)
[2019-06-22] MEDS: Enoxaparin Sodium 40 MG/0.4 ML SYRINGE SC SCH (09:02)
[2019-06-22] MEDS: Docusate 100 MG CAP PO SCH (09:02)
[2019-06-22] MEDS: Aspirin 81 mg Enteric Coated Tablet PO SCH (09:02)
[2019-06-22] MEDS: metFORMIN 500 MG TAB PO SCH (09:02)
[2019-06-22] MEDS: Losartan 25 MG TAB PO SCH (09:02)
[2019-06-22 11:12] VITALS: TEMP 98.2
[2019-06-22] MEDS: Ondansetron ODT 4 MG TAB PO PRN (16:18)
[2019-06-22 16:19] VITALS: BP 145/80
--- NOTE | 2019-06-23 03:43 | DIS ---
DATE OF ADMISSION: 06/20/2019 DATE OF DISCHARGE: 06/22/2019 RESIDENT: Yomaira Lopez DO ADMITTING ATTENDING: Gail Seaman MD DISCHARGE ATTENDING: Stefano Ponce MD CONSULTS: 1. Case Management. 2. Occupational Therapy. 3. Physical Therapy. PROCEDURES: 1. Chest x-ray on June 20, 2019: No acute cardiopulmonary process. 2. Lumbar spine x-ray on June 20, 2019: Multilevel degenerative changes throughout the lumbar spine, which have not significantly progressed from prior study. 3. Renal ultrasound on June 21, 2019: No evidence of urinary tract obstruction. Good arterial flow to each kidney without sonographic evidence of significant stenosis. PRIMARY DIAGNOSIS: Generalized weakness due to physical deconditioning. SECONDARY DIAGNOSES: 1. Indeterminate troponin. 2. Hypokalemia. 3. Hypertension. DISCHARGE MEDICATIONS: 1. Glipizide 5 mg p.o. b.i.d. 2. Bupropion 150 mg p.o. b.i.d. 3. Nexium 40 mg p.o. daily. 4. Hydrochlorothiazide 50 mg p.o. daily. 5. Rosuvastatin 20 mg p.o. at bedtime. 6. Multivitamin 1 tablet p.o. daily. 7. Hydralazine hydrochloride 100 mg p.o. t.i.d. 8. Potassium chloride 20 mEq p.o. daily. 9. Acetaminophen 1000 mg p.o. q.6 hour p.r.n. 10. Ferrous sulfate 325 mg p.o. daily. 11. Docusate sodium 100 mg p.o. daily. 12. Losartan 100 mg p.o. daily. 13. Carvedilol 6.25 mg p.o. b.i.d. 14. Metformin 500 mg p.o. b.i.d. 15. Aspirin 81 mg p.o. daily. 16. Magnesium oxide 250 mg p.o. daily. 17. Zofran ODT 4 mg p.o. q.6 hours p.r.n. for nausea or vomiting. 18. Senokot two tabs p.o. b.i.d. p.r.n. DISCONTINUED MEDICATIONS: None. HISTORY OF PRESENT ILLNESS/HOSPITAL COURSE: The patient is a 58-year-old male with a history of multiple recent inpatient rehab facility stays in the past year, who presents today with predominant complaint of generalized weakness. He has fallen multiple times in the past several weeks per his PCP, Dr. Agosto, at [facility]. Most recently, he fell on his left side on Wednesday night after feeling very weak and has had pain in his bottom since, stating that it felt "sore." The patient states he became short of breath this morning, thought he was more weak, and did not want to eat or do anything. He was found in this condition by home health nurse who called the patient's PCP, who then recommended the patient to be taken to ED for further evaluation. The patient was given a baby aspirin at the alf, he currently resides at and this helped the pain in his bottom where he fell from Wednesday. The patient denies heartburn or indigestion, diarrhea, vomiting. Did have some nausea earlier in the day, but did eat oatmeal for breakfast. The patient states he actually feels hungry and would like something to eat. The patient additionally complains of allergies and runny nose for the past several weeks. The patient reports a subjective slight fever earlier on admission today, but could not recall actual temperature. He lives in a alf. He did not report a fever. He has no known sick contacts and there are no known COVID patients at this facility. In the emergency department, he was given 324 mg of aspirin and 50 mg of tramadol. The patient was admitted to observation on telemetry for further monitoring and evaluation. His initial troponin was 0.064, which was near his baseline. This eventually trended out to continue to be 0.079 and then 0.065. The patient had a HEART score of 2 with no stress test indications at this point. The patient also had a recent echo in April 2019, which showed an EF of 55% to 60%. He was euvolemic on admission exam. The patient was also noted on lab work to have a potassium of 2.5 and a magnesium of 1.5. These were both repleted and were stable on subsequent lab work. Per the patient's PCP, the patient and his had both been accepted to [facility], but had been unable to make it to this facility. The patient could not qualify for inpatient rehab at this time due to multiple inpatient rehab stays in the past year including the last 30 days. The patient was evaluated by Physical Therapy and Occupational Therapy, who agreed that the patient would need to have continued therapy at a custodial facility. Placement at [facility] was accomplished on the morning of June 22, 2019. Throughout the patient's hospital stay, he continued to have elevated blood pressures with systolic pressures ranging between 140 and 160s. This is despite being on 4 blood pressure medications. Workup for secondary hypertension was initiated with a renal ultrasound with Dopplers, these resulted as normal. A renin and aldosterone levels were drawn, which were still pending at the time of this dictation. DISPOSITION: Stable. DISCHARGE INSTRUCTIONS: 1. Location: [facility]. 2. Diet: Heart healthy. 3. Activity: As tolerated, pending physical therapy and occupational therapy eval. 4. Followup: a. Follow up with Dr. Agosto, at [facility] and [facility] in 7 days. b. Follow up with primary care provider at [facility]. Job ID: [id number]
[2019-06-23] MEDS ORDERED: Magnesium Oxide 250 MG TAB PO SCH (09:00)
[2019-06-25 16:12] LABS: Renin Activity 1.231 ng/mL/hr (0.167-5.380)
--- NOTE | 2019-06-27 15:07 | ULT ---
"PRELIMINARY REPORT" Renal sonogram with duplex evaluation HISTORY: Hypertension. FINDINGS: Right kidney is 11.3 cm length and the left is 11.2 cm. Each has a normal sonographic appea maria elena without evidence of mass, stone, or hydronephrosis. Urinary bladder decompressed and not well evaluated. Good color and spectral Doppler flow within each renal artery. No abnormally elevated peak systolic v elocities. IMPRESSION : No evidence of urinary tract obstruction. Good arterial flow to each kidney without sonographic evidence of significant stenosis. Transcribed Date/Time: 06/27/2019 3:07 PM
== END 2019-06-22 17:22 ==
LOC: ERS 11:22 → 2SE 16:46
PROVIDERS: ADMIT Family Medicine; ATTEND Family Medicine
DX: R53.1 Weakness (principal); R79.89 Other specified abnormal findings of blood chemistry; E87.6 Hypokalemia; I11.0 Hypertensive heart disease with heart failure; I50.9 Heart failure, unspecified; R29.6 Repeated falls; R06.02 Shortness of breath; E11.9 Type 2 diabetes mellitus without complications; E78.5 Hyperlipidemia, unspecified; F32.9 Major depressive disorder, single episode, unspecified; G47.33 Obstructive sleep apnea (adult) (pediatric); D50.9 Iron deficiency anemia, unspecified; I48.0 Paroxysmal atrial fibrillation; I48.92 Unspecified atrial flutter; Z79.82 Long term (current) use of aspirin; Z79.84 Long term (current) use of oral hypoglycemic drugs; Z79.899 Other long term (current) drug therapy; Z88.0 Allergy status to penicillin; Z88.7 Allergy status to serum and vaccine; Z88.8 Allergy status to other drugs, medicaments and biological substances
CPT/HCPCS: 71045; 72100; 76770; 80048 ×2; 80053; 80061; 81003; 82088; 82550; 82553; 82962 ×2; 83036; 83735 ×2; 83880; 84100; 84244; 84484 ×2; 85025; 93005 ×2; 93975; 96365; 96372; 96375; 97116 ×2; 97139 ×6; 97530; 97535; 99285; G0378 ×4; J1650 ×2; J3475; J3480; Q0162 ×2; 36415; 36416; 84443; 93010

== ENCOUNTER 2019-10-03 07:43 | Outpatient (CLI) | payer MEDICARE, MEDICAID ==
--- NOTE | 2019-10-03 14:38 | NM ---
Nuclear medicine Ronald SPECT brain: DATE: 10/03/2019 HISTORY: 58-year-old male with R 26.9, gait difficulty TECHNIQUE: Premedication administered PO 1 hour prior to injection:130 mg. Radiopharmaceutical administered IV 3 hours prior to scan:4.6 mCi I-123 Ioflupane. Axial SPECT of brain performed. FINDINGS: Uptake in caudate nuclei:Asymmetrically significantly decreased on the right compared to the left. Uptake in the putamina:Absent bilaterally. IMPRESSION: Positive, abnormal Ronald scan: Evidence for Parkinson's disease or Parkinson's syndrome
== END 2019-10-03 07:44 | disposition home or self-care (01) ==
LOC: NM 07:43
PROVIDERS: ATTEND Nurse Practitioner Acute Care
DX: R26.9 Unspecified abnormalities of gait and mobility (principal); R94.8 Abnormal results of function studies of other organs and systems; G20 Parkinson's disease
CPT/HCPCS: 78803; A9584

== ENCOUNTER 2020-05-11 04:19 | Observation (INO) | payer MEDICARE, MEDICAID ==
[2020-05-11 05:01] LABS: #Eosinphils 0.3 thou/uL (0.0-0.7); #Lymphocytes 1.2 thou/uL (1.20-3.40); #Monocytes 0.8 thou/uL (0.11-0.59); #Neutrophils 7.5 thou/uL (1.40-6.50); %Basophils 0.5 % (0.0-1.0); %Eosinophils 3.2 % (0.0-10.0); %Lymphocytes 11.9 % (21.0-51.0); %Monocytes 7.7 % (0.0-10.0); %Neutrophils 76.7 % (42.0-75.0); Hemoglobin 8.7 g/dL (14.0-18.0); Mean Corpuscular HGB CONC 32.9 g/dL (32.0-36.0); Mean Corpuscular Hemoglobin 31.2 pg (27.0-31.0); Mean Platelet Volume 8.7 fL (7.4-10.4); Platelet Count 198 thou/uL (130-400); RBC Distribution Width 14.7 % (11.5-14.5); Red Blood Cell (RBC) Count 2.78 mill/uL (4.70-6.10); White Blood Cell (WBC) Count 9.8 thou/uL (4.8-10.8)
[2020-05-11 05:48] LABS: ALT (SGPT) 15 U/L (8-55); AST (SGOT) 14 U/L (5-34); Albumin 3.4 g/dL (3.5-5.0); Alkaline Phosphatase 73 U/L (40-110); Anion Gap 14 mmol/L (10-20); BUN (Urea Nitrogen) 16 mg/dL (8.4-25.7); Bilirubin, Total 0.4 mg/dL (0.2-1.2); Calc. Creatinine Clearance 0 mL/min (70-130); Calcium 7.7 mg/dL (7.8-10.44); Carbon Dioxide 25 mmol/L (22-29); Chloride 105 mmol/L (98-107); Glucose 75 mg/dL (70-105); Potassium 3.3 mmol/L (3.5-5.1); Protein, Total 6.4 g/dL (6.0-8.3); Sodium 141 mmol/L (136-145)
[2020-05-11] MEDS ORDERED: Nitroglycerin 2% Ointment 1 INCH/1 GM Packet ONE (07:01)
[2020-05-11] MEDS ORDERED: Acetaminophen 325 MG TAB PO PRN (08:03)
[2020-05-11 08:21] LABS: Troponin I 0.087 ng/mL (< 0.028)
[2020-05-11] MEDS ORDERED: Enoxaparin Sodium 40 MG/0.4 ML SYRINGE SC SCH (09:00)
[2020-05-11 11:28] LABS: Phosphorus 4.4 mg/dL (2.3-4.7)
[2020-05-11 11:30] LABS: Cardiac Risk 2.8 (Less than 4.5); Magnesium 1.7 mg/dL (1.6-2.6)
[2020-05-11 11:36] LABS: Troponin I 0.093 ng/mL (< 0.028)
[2020-05-11 17:05] LABS: Hemoglobin A1c 4.8 % (4.0-6.0)
[2020-05-11] MEDS: Carbidopa/Levodopa 25-100 mg Tablet PO SCH ×2 (17:16→20:43)
[2020-05-11] MEDS: Ferrous Sulfate 325 MG TAB PO SCH (17:16)
[2020-05-11] MEDS: buPROPion HCl 100 MG TAB PO SCH ×2 (17:16→20:42)
[2020-05-11] MEDS: hydrALAZINE 25 MG TAB PO SCH ×2 (17:16→20:42)
[2020-05-11] MEDS: metFORMIN 500 MG TAB PO SCH (17:16)
[2020-05-11] MEDS: Rivaroxaban 10 MG TAB PO SCH (17:18)
[2020-05-11 17:38] VITALS: BMI 30.9
[2020-05-11] MEDS: Famotidine 20 MG TAB PO SCH (20:42)
[2020-05-11] MEDS: Atorvastatin Calcium 40 MG TAB PO SCH (20:43)
[2020-05-11 21:12] LABS: SARS-CoV-2 PCR by NAA Not Detected (NotDetected)
[2020-05-12 04:34] LABS: Hemoglobin 8.1 g/dL (14.0-18.0); Mean Corpuscular HGB CONC 33.1 g/dL (32.0-36.0); Mean Corpuscular Hemoglobin 31.6 pg (27.0-31.0); Mean Corpuscular Volume 95.5 fL (78.0-98.0); Mean Platelet Volume 9.2 fL (7.4-10.4); Platelet Count 194 thou/uL (130-400); RBC Distribution Width 14.7 % (11.5-14.5); Red Blood Cell (RBC) Count 2.57 mill/uL (4.70-6.10); White Blood Cell (WBC) Count 6.4 thou/uL (4.8-10.8)
[2020-05-12 04:39] LABS: Anion Gap 13 mmol/L (10-20); BUN (Urea Nitrogen) 14 mg/dL (8.4-25.7); Calc. Creatinine Clearance 131 mL/min (70-130); Calcium 7.4 mg/dL (7.8-10.44); Carbon Dioxide 25 mmol/L (22-29); Chloride 105 mmol/L (98-107); Glucose 131 mg/dL (70-105); Magnesium 1.7 mg/dL (1.6-2.6); Potassium 3.2 mmol/L (3.5-5.1); Sodium 140 mmol/L (136-145)
[2020-05-12] MEDS ORDERED: Potassium Chloride 20 MEQ TAB PO SCH ×2 (06:00→07:30)
[2020-05-12] MEDS ORDERED: glipiZIDE 10 MG TAB PO SCH (07:30)
[2020-05-12] MEDS ORDERED: Docusate 100 MG CAP PO SCH (09:00)
[2020-05-12] MEDS ORDERED: Magnesium Oxide 400 MG TAB PO SCH (09:00)
[2020-05-12] MEDS ORDERED: Hydrochlorothiazide 25 MG TAB PO SCH (09:00)
[2020-05-12] MEDS ORDERED: Magnesium Oxide 250 MG TAB PO SCH (09:00)
[2020-05-12] MEDS ORDERED: Multivit, Therapeutic 1 TAB PO SCH (09:00)
[2020-05-12] MEDS ORDERED: Aspirin 81 mg Enteric Coated Tablet PO SCH (09:00)
[2020-05-12] MEDS ORDERED: Loratadine 10 MG TAB PO SCH (09:00)
[2020-05-12] MEDS ORDERED: Losartan 25 MG TAB PO SCH (09:00)
[2020-05-12] MEDS: Ferrous Sulfate 325 MG TAB PO SCH ×2 (09:12→16:02)
[2020-05-12] MEDS: buPROPion HCl 100 MG TAB PO SCH ×3 (09:12→20:23)
[2020-05-12] MEDS: Carbidopa/Levodopa 25-100 mg Tablet PO SCH ×3 (09:12→20:24)
[2020-05-12 10:07] LABS: Calc. Creatinine Clearance 134 mL/min (70-130)
[2020-05-12] MEDS ORDERED: Lidocaine 5% Patch TD PRN (10:25)
[2020-05-12] MEDS ORDERED: ADENOSINE 60 MG/20 ML VIAL ONE (10:43)
[2020-05-12] MEDS: hydrALAZINE 25 MG TAB PO SCH ×3 (14:14→20:23)
[2020-05-12] MEDS: metFORMIN 500 MG TAB PO SCH (14:14)
[2020-05-12] MEDS: Rivaroxaban 10 MG TAB PO SCH (19:03)
[2020-05-12 19:51] VITALS: BP 162/81; TEMP 98.5
[2020-05-12] MEDS: Famotidine 20 MG TAB PO SCH (20:23)
[2020-05-12] MEDS: Atorvastatin Calcium 40 MG TAB PO SCH (20:23)
== END 2020-05-12 20:50 ==
LOC: ERS 04:19 → ERHOLD 06:22 → 2NO 06:22
PROVIDERS: ADMIT Family Medicine; ATTEND Family Medicine
DX: R07.89 Other chest pain (principal); E11.9 Type 2 diabetes mellitus without complications; E78.5 Hyperlipidemia, unspecified; I11.0 Hypertensive heart disease with heart failure; I50.9 Heart failure, unspecified; K21.9 Gastro-esophageal reflux disease without esophagitis; I48.91 Unspecified atrial fibrillation; F41.9 Anxiety disorder, unspecified; F32.9 Major depressive disorder, single episode, unspecified; G20 Parkinson's disease; F70 Mild intellectual disabilities; J30.9 Allergic rhinitis, unspecified; Z79.82 Long term (current) use of aspirin; Z79.84 Long term (current) use of oral hypoglycemic drugs; Z79.899 Other long term (current) drug therapy; Z88.0 Allergy status to penicillin; Z88.7 Allergy status to serum and vaccine; Z88.8 Allergy status to other drugs, medicaments and biological substances
CPT/HCPCS: 71045; 78452; 80048; 80061; 82553; 82565; 82962 ×2; 83036; 83735 ×2; 84100; 84484 ×2; 85027; 93005; 93017; 94760; 99285; A9500; G0378 ×3; U0003; U0005; 36415; 36416; 80053; 84443; 85025; 87635; J0153

== ENCOUNTER 2020-09-18 14:13 | Inpatient (IN) | payer MEDICARE, MEDICAID ==
[2020-09-18] MEDS ORDERED: Ondansetron ODT 4 MG TAB PO PRN (21:44)
[2020-09-18] MEDS ORDERED: Acetaminophen 325 MG TAB PO PRN (21:44)
[2020-09-18 23:03] LABS: Troponin I 0.061 ng/mL (< 0.028)
[2020-09-18] MEDS ORDERED: HumaLOG 300 UNITS/3 ML VIAL SC PRN ×2 (23:31)
[2020-09-18] MEDS ORDERED: Dextrose 50% Abboject 50 ML SYRINGE SLOW IVP PRN (23:31)
[2020-09-18] MEDS ORDERED: Dextrose 5% in Water 1,000 ML IV PRN (23:31)
[2020-09-18] MEDS ORDERED: Electrolyte Replacement Protocol 1 EACH FS SCH (23:45)
[2020-09-18] MEDS ORDERED: Potassium Chloride 40 MEQ in Sodium Chloride 0.9% 250 ML 250 ML IVPB SCH (23:59)
[2020-09-19 05:11] LABS: #Eosinphils 0.2 thou/uL (0.0-0.7); #Lymphocytes 1.2 thou/uL (1.20-3.40); #Monocytes 0.8 thou/uL (0.11-0.59); #Neutrophils 5.1 thou/uL (1.40-6.50); %Basophils 0.7 % (0.0-1.0); %Eosinophils 2.6 % (0.0-10.0); %Lymphocytes 16.3 % (21.0-51.0); %Monocytes 10.6 % (0.0-10.0); %Neutrophils 69.9 % (42.0-75.0); Hemoglobin 11.2 g/dL (14.0-18.0); Mean Corpuscular Hemoglobin 32.8 pg (27.0-31.0); Mean Corpuscular Volume 96.3 fL (78.0-98.0); Mean Platelet Volume 10.3 fL (7.4-10.4); Platelet Count 163 thou/uL (130-400); RBC Distribution Width 13.1 % (11.5-14.5); White Blood Cell (WBC) Count 7.3 thou/uL (4.8-10.8)
[2020-09-19 05:27] LABS: Anion Gap 11 mmol/L (10-20); BUN (Urea Nitrogen) 16 mg/dL (8.4-25.7); Calc. Creatinine Clearance 64 mL/min (70-130); Calcium 8.3 mg/dL (7.8-10.44); Carbon Dioxide 30 mmol/L (22-29); Chloride 104 mmol/L (98-107); Glucose 106 mg/dL (70-105); Magnesium 1.9 mg/dL (1.6-2.6); Potassium 3.1 mmol/L (3.5-5.1); Sodium 142 mmol/L (136-145)
[2020-09-19] MEDS ORDERED: Electrolyte Replacement Protocol FS PRN (06:30)
[2020-09-19] MEDS: Morphine 4 MG/ML VIAL SLOW IVP PRN ×2 (07:18→17:04)
[2020-09-19] MEDS: Ondansetron PF 4 MG/2 ML Vial IVP PRN (07:22)
[2020-09-19] MEDS ORDERED: Potassium Chloride 40 MEQ, Magnesium Sulfate 2 GM in Sodium Chloride 0.9% 250 ML 250 ML IVPB SCH (08:00)
[2020-09-19] MEDS ORDERED: Ondansetron ODT 4 MG TAB PO PRN (08:30)
[2020-09-19] MEDS ORDERED: Acetaminophen 325 MG TAB PO PRN (08:30)
[2020-09-19] MEDS ORDERED: hydrALAZINE 20 MG/ML VIAL SLOW IVP PRN (08:49)
[2020-09-19] MEDS ORDERED: Enoxaparin Sodium 40 MG/0.4 ML SYRINGE SC SCH (09:00)
[2020-09-19] MEDS ORDERED: Carvedilol 25 MG TAB PO SCH (09:00)
[2020-09-19] MEDS ORDERED: Losartan 25 MG TAB PO SCH (09:00)
[2020-09-19] MEDS ORDERED: Ferrous Sulfate 325 MG TAB PO SCH (09:00)
[2020-09-19] MEDS ORDERED: Ketorolac Tromethamine 30 MG/ML VIAL IVP SCH (09:15)
[2020-09-19] MEDS: Magnesium Oxide 250 MG TAB PO SCH (09:17)
[2020-09-19] MEDS: Hydrochlorothiazide 25 MG TAB PO SCH (09:17)
[2020-09-19] MEDS: Carbidopa/Levodopa 25-100 mg Tablet PO SCH ×3 (09:18→20:14)
[2020-09-19] MEDS: hydrALAZINE 25 MG TAB PO SCH ×3 (09:18→20:13)
[2020-09-19] MEDS: Famotidine 20 MG TAB PO SCH (09:18)
[2020-09-19] MEDS: Loratadine 10 MG TAB PO SCH (09:19)
[2020-09-19] MEDS: buPROPion HCl 100 MG TAB PO SCH ×3 (09:19→20:14)
[2020-09-19] MEDS: Aspirin Chewable 81 MG TAB PO SCH (09:19)
[2020-09-19] MEDS: Multivit, Therapeutic 1 TAB PO SCH (09:19)
[2020-09-19] MEDS: Docusate 100 MG CAP PO SCH (09:19)
[2020-09-19] MEDS: Potassium Chloride 20 MEQ TAB PO SCH ×3 (09:19→09:24)
[2020-09-19] MEDS: Aspirin 81 mg Enteric Coated Tablet PO SCH (09:22)
[2020-09-19 13:21] LABS: CKMB 1.9 ng/mL (0-6.6)
[2020-09-19] MEDS ORDERED: Potassium Chloride 20 MEQ TAB PO SCH (14:00)
[2020-09-19 16:23] VITALS: BMI 43.0
[2020-09-19] MEDS: Ferrous Sulfate 325 MG TAB PO SCH (16:24)
[2020-09-19] MEDS: Lidocaine 5% Patch TD SCH (16:24)
[2020-09-19] MEDS: Carvedilol 25 MG TAB PO SCH (16:24)
[2020-09-19] MEDS ORDERED: Communication Order-Pharmacy FS SCH (18:30)
[2020-09-19] MEDS ORDERED: Amlodipine 5 MG TAB PO SCH (20:00)
[2020-09-19] MEDS: Atorvastatin Calcium 40 MG TAB PO SCH (20:13)
[2020-09-20] MEDS: Transdermal Patch Removal TOP SCH (04:48)
[2020-09-20] MEDS: Carbidopa/Levodopa 25-100 mg Tablet PO SCH ×3 (05:48→20:46)
[2020-09-20] MEDS: buPROPion HCl 100 MG TAB PO SCH ×3 (05:48→20:46)
[2020-09-20] MEDS: Potassium Chloride 20 MEQ TAB PO SCH (05:49)
[2020-09-20] MEDS: Loratadine 10 MG TAB PO SCH (05:49)
[2020-09-20] MEDS: Docusate 100 MG CAP PO SCH (05:49)
[2020-09-20] MEDS: Hydrochlorothiazide 25 MG TAB PO SCH (05:49)
[2020-09-20] MEDS: Carvedilol 25 MG TAB PO SCH ×2 (05:49→17:39)
[2020-09-20] MEDS: Famotidine 20 MG TAB PO SCH (05:50)
[2020-09-20] MEDS: hydrALAZINE 25 MG TAB PO SCH ×3 (05:50→20:46)
[2020-09-20] MEDS: Magnesium Oxide 250 MG TAB PO SCH (05:50)
[2020-09-20] MEDS: Aspirin Chewable 81 MG TAB PO SCH (05:52)
[2020-09-20] MEDS: Losartan 25 MG TAB PO SCH ×2 (05:52→05:56)
[2020-09-20] MEDS: Aspirin 81 mg Enteric Coated Tablet PO SCH (05:53)
[2020-09-20] MEDS ORDERED: Magnesium 2 GM/50 ML 2 GM in Premix Bag 1 BAG IVPB SCH (06:30)
[2020-09-20] MEDS: Ferrous Sulfate 325 MG TAB PO SCH ×2 (06:34→17:39)
[2020-09-20] MEDS: Multivit, Therapeutic 1 TAB PO SCH (06:37)
[2020-09-20] MEDS ORDERED: Lidocaine 1% (PF) 30 ML VIAL ONE (07:37)
[2020-09-20] MEDS ORDERED: Fentanyl 100 MCG/2 ML VIAL ONE (08:35)
[2020-09-20] MEDS ORDERED: Midazolam HCl 2 mg/2 ml Vial ONE (08:35)
[2020-09-20] MEDS ORDERED: Nitroglycerin 100MG/250ML BOT 250 ML ONE (08:57)
[2020-09-20] MEDS ORDERED: Iopamidol 370 76% 100 ML VIAL ONE (09:12)
[2020-09-20] MEDS ORDERED: Sodium Chloride 0.9% 200 ML IV PRN (09:18)
[2020-09-20] MEDS ORDERED: Nitroglycerin 0.4 MG TAB (25 Tab Bottle) SL PRN (09:18)
[2020-09-20] MEDS ORDERED: Sodium Chloride 0.9% 1,000 ML IV SCH (09:30)
[2020-09-20] MEDS: Ondansetron PF 4 MG/2 ML Vial IVP PRN (10:01)
[2020-09-20] MEDS: Lidocaine 5% Patch TD SCH (15:42)
[2020-09-20] MEDS: Atorvastatin Calcium 40 MG TAB PO SCH (20:46)
[2020-09-21] MEDS: Transdermal Patch Removal TOP SCH (03:53)
[2020-09-21] MEDS ORDERED: Amlodipine 5 MG TAB PO SCH ×2 (09:00→13:15)
[2020-09-21] MEDS ORDERED: CeleCOXIB 100 MG CAP PO SCH (09:00)
[2020-09-21] MEDS: Hydrochlorothiazide 25 MG TAB PO SCH (09:46)
[2020-09-21] MEDS: Ferrous Sulfate 325 MG TAB PO SCH ×2 (09:46→16:28)
[2020-09-21] MEDS: Aspirin 81 mg Enteric Coated Tablet PO SCH (09:47)
[2020-09-21] MEDS: hydrALAZINE 25 MG TAB PO SCH ×2 (09:47→15:26)
[2020-09-21] MEDS: Docusate 100 MG CAP PO SCH (09:47)
[2020-09-21] MEDS: Potassium Chloride 20 MEQ TAB PO SCH (09:48)
[2020-09-21] MEDS: Carbidopa/Levodopa 25-100 mg Tablet PO SCH ×2 (09:48→15:25)
[2020-09-21] MEDS: Magnesium Oxide 250 MG TAB PO SCH (09:48)
[2020-09-21] MEDS: Losartan 25 MG TAB PO SCH (09:49)
[2020-09-21] MEDS: Loratadine 10 MG TAB PO SCH (09:49)
[2020-09-21] MEDS: Famotidine 20 MG TAB PO SCH (09:49)
[2020-09-21] MEDS: Multivit, Therapeutic 1 TAB PO SCH (09:49)
[2020-09-21] MEDS: Carvedilol 25 MG TAB PO SCH ×2 (09:49→16:28)
[2020-09-21] MEDS: buPROPion HCl 100 MG TAB PO SCH ×2 (09:49→15:26)
[2020-09-21] MEDS: Lidocaine 5% Patch TD SCH (16:28)
[2020-09-21 20:47] VITALS: BP 128/77; TEMP 98.8
[2020-09-22] MEDS ORDERED: Amlodipine 10 MG TAB PO SCH (09:00)
== END 2020-09-21 20:07 | DRG 287 ==
LOC: 2NO 14:13 → OBSVTOIN 09-20 12:48
PROVIDERS: ADMIT Internal Medicine; ATTEND Internal Medicine
PROC: 4A023N7 Measurement of Cardiac Sampling and Pressure, Left Heart, Percutaneous Approach (ICD-10-PCS; principal; 2020-09-20)
PROC: B2111ZZ Fluoroscopy of Multiple Coronary Arteries using Low Osmolar Contrast (ICD-10-PCS; 2020-09-20)
DX: R07.89 Other chest pain (principal); I45.2 Bifascicular block; G20 Parkinson's disease; E78.5 Hyperlipidemia, unspecified; E11.9 Type 2 diabetes mellitus without complications; K21.9 Gastro-esophageal reflux disease without esophagitis; I11.0 Hypertensive heart disease with heart failure; I48.91 Unspecified atrial fibrillation; Z20.822 Contact with and (suspected) exposure to COVID-19; I25.10 Atherosclerotic heart disease of native coronary artery without angina pectoris; Z88.0 Allergy status to penicillin; Z88.8 Allergy status to other drugs, medicaments and biological substances; Z88.7 Allergy status to serum and vaccine; Z79.82 Long term (current) use of aspirin; Z79.899 Other long term (current) drug therapy; Z98.890 Other specified postprocedural states; R07.9 Chest pain, unspecified; I50.9 Heart failure, unspecified
CPT/HCPCS: 36415; 36416; 71045; 76942; 80048; 80053; 82553; 83690; 83735; 83880; 84484; 85025; 93005; 93010; 93306; 93458; 94760; 96365; 96366; 96372; 96375; 96376; 99152; G0378; J1650; J1885; J2001; J2250; J2270; J2405; J3010; J3475; J3480; J7050; Q9967

== ENCOUNTER 2020-11-25 17:59 | Emergency (ER) | payer MEDICARE, MEDICAID ==
[2020-11-25] MEDS ORDERED: Ketorolac Tromethamine 30 MG/ML VIAL ONE (19:18)
[2020-11-25] MEDS ORDERED: HYDROcodone/Acetaminophen 5/325 mg Tablet ONE (19:18)
== END 2020-11-25 19:48 | disposition home or self-care (01) ==
LOC: ERS 17:59
DX: S93.402A Sprain of unspecified ligament of left ankle, initial encounter (principal); S83.92XA Sprain of unspecified site of left knee, initial encounter; S70.02XA Contusion of left hip, initial encounter; I11.0 Hypertensive heart disease with heart failure; I50.9 Heart failure, unspecified; E11.9 Type 2 diabetes mellitus without complications; Z79.899 Other long term (current) drug therapy; W19.XXXA Unspecified fall, initial encounter
CPT/HCPCS: 70450; 72125; 96372; J1885

== ENCOUNTER 2021-01-26 01:23 | Emergency (ER) | payer MEDICARE, MEDICAID ==
[2021-01-26] MEDS ORDERED: HYDROcodone/Acetaminophen 5/325 mg Tablet ONE (01:44)
== END 2021-01-26 03:41 | disposition home or self-care (01) ==
LOC: ERS 01:23
DX: M25.552 Pain in left hip (principal); M25.511 Pain in right shoulder; W19.XXXA Unspecified fall, initial encounter; I11.0 Hypertensive heart disease with heart failure; I50.9 Heart failure, unspecified; E78.5 Hyperlipidemia, unspecified; K21.9 Gastro-esophageal reflux disease without esophagitis; E11.9 Type 2 diabetes mellitus without complications; I48.91 Unspecified atrial fibrillation; G20 Parkinson's disease; D64.9 Anemia, unspecified; I82.409 Acute embolism and thrombosis of unspecified deep veins of unspecified lower extremity; Z79.82 Long term (current) use of aspirin; Z79.84 Long term (current) use of oral hypoglycemic drugs; Z79.899 Other long term (current) drug therapy
CPT/HCPCS: 71045; 72170

== ENCOUNTER 2021-02-25 07:40 | Emergency (ER) | payer MEDICARE, MEDICAID ==
[2021-02-25 08:21] LABS: #Eosinphils 0.2 thou/uL (0.0-0.7); #Monocytes 0.6 thou/uL (0.11-0.59); #Neutrophils 5.1 thou/uL (1.40-6.50); %Basophils 0.4 % (0.0-1.0); %Eosinophils 2.8 % (0.0-10.0); %Lymphocytes 14.3 % (21.0-51.0); %Monocytes 8.9 % (0.0-10.0); %Neutrophils 73.6 % (42.0-75.0); Hemoglobin 11.7 g/dL (14.0-18.0); Mean Corpuscular HGB CONC 33.8 g/dL (32.0-36.0); Mean Corpuscular Hemoglobin 32.9 pg (27.0-31.0); Mean Corpuscular Volume 97.2 fL (78.0-98.0); Mean Platelet Volume 8.9 fL (7.4-10.4); Platelet Count 166 thou/uL (130-400); RBC Distribution Width 12.7 % (11.5-14.5); Red Blood Cell (RBC) Count 3.55 mill/uL (4.70-6.10)
[2021-02-25 08:39] LABS: ALT (SGPT) 13 U/L (8-55); AST (SGOT) 16 U/L (5-34); Albumin 3.9 g/dL (3.5-5.0); Alkaline Phosphatase 71 U/L (40-110); Anion Gap 15 mmol/L (10-20); BUN (Urea Nitrogen) 21 mg/dL (8.4-25.7); Bilirubin, Total 0.6 mg/dL (0.2-1.2); Calc. Creatinine Clearance 0 mL/min (70-130); Calcium 8.7 mg/dL (7.8-10.44); Carbon Dioxide 27 mmol/L (22-29); Chloride 103 mmol/L (98-107); Glucose 98 mg/dL (70-105); Potassium 3.6 mmol/L (3.5-5.1); Protein, Total 6.9 g/dL (6.0-8.3); Sodium 141 mmol/L (136-145)
== END 2021-02-25 09:03 | disposition home or self-care (01) ==
LOC: ERS 07:40
DX: S50.312A Abrasion of left elbow, initial encounter (principal); S80.812A Abrasion, left lower leg, initial encounter; S80.811A Abrasion, right lower leg, initial encounter; L03.115 Cellulitis of right lower limb; L03.116 Cellulitis of left lower limb; I11.0 Hypertensive heart disease with heart failure; I50.9 Heart failure, unspecified; I48.91 Unspecified atrial fibrillation; K21.9 Gastro-esophageal reflux disease without esophagitis; E78.5 Hyperlipidemia, unspecified; Z79.899 Other long term (current) drug therapy; Z79.82 Long term (current) use of aspirin; Z79.84 Long term (current) use of oral hypoglycemic drugs; W19.XXXA Unspecified fall, initial encounter
CPT/HCPCS: 36415; 71045; 72170; 80053; 82553; 84484; 85025; 93005

== ENCOUNTER 2021-03-11 14:15 | Outpatient (CLI) | payer MEDICARE, MEDICAID | END 2021-03-11 14:16 | disposition home or self-care (01) | LOC: ULT 14:15 | PROVIDERS: ATTEND Student in an Organized Health Care Education/Training Program | DX: R60.0 Localized edema (principal) | CPT/HCPCS: 93970 ==

== ENCOUNTER 2021-03-18 04:48 | Emergency (ER) | payer MEDICARE, MEDICAID ==
[2021-03-18] MEDS ORDERED: Ondansetron ODT 4 MG TAB ONE (05:04)
[2021-03-18] MEDS ORDERED: Ketorolac Tromethamine 30 MG/ML VIAL ONE (05:38)
== END 2021-03-18 05:49 | disposition home or self-care (01) ==
LOC: ERS 04:48
DX: M54.50 Low back pain, unspecified (principal); I11.0 Hypertensive heart disease with heart failure; I50.9 Heart failure, unspecified; I48.91 Unspecified atrial fibrillation; E78.5 Hyperlipidemia, unspecified; K21.9 Gastro-esophageal reflux disease without esophagitis; D64.9 Anemia, unspecified
CPT/HCPCS: 96372; 99283; J1885; Q0162

== ENCOUNTER 2021-04-02 17:07 | Emergency (ER) | payer MEDICARE, MEDICAID ==
[2021-04-02] MEDS ORDERED: Acetaminophen 500 MG TAB ONE (18:34)
== END 2021-04-02 18:45 | disposition home or self-care (01) ==
LOC: ERS 17:07
DX: S80.02XA Contusion of left knee, initial encounter (principal); S50.02XA Contusion of left elbow, initial encounter; I11.0 Hypertensive heart disease with heart failure; I50.9 Heart failure, unspecified; I49.9 Cardiac arrhythmia, unspecified; I48.91 Unspecified atrial fibrillation; K21.9 Gastro-esophageal reflux disease without esophagitis; D64.9 Anemia, unspecified; G20 Parkinson's disease; Z86.718 Personal history of other venous thrombosis and embolism; W06.XXXA Fall from bed, initial encounter; Y92.099 Unspecified place in other non-institutional residence as the place of occurrence of the external cause

== ENCOUNTER 2021-04-10 06:50 | Emergency (ER) | payer MEDICARE, MEDICAID ==
[2021-04-10 07:31] LABS: #Eosinphils 0.2 thou/uL (0.0-0.7); #Monocytes 0.6 thou/uL (0.11-0.59); #Neutrophils 4.7 thou/uL (1.40-6.50); %Basophils 0.6 % (0.0-1.0); %Eosinophils 3.1 % (0.0-10.0); %Lymphocytes 15.5 % (21.0-51.0); %Monocytes 8.5 % (0.0-10.0); %Neutrophils 72.2 % (42.0-75.0); Hemoglobin 11.9 g/dL (14.0-18.0); Mean Corpuscular HGB CONC 34.1 g/dL (32.0-36.0); Mean Corpuscular Hemoglobin 32.7 pg (27.0-31.0); Mean Corpuscular Volume 95.8 fL (78.0-98.0); Mean Platelet Volume 9.3 fL (7.4-10.4); Platelet Count 130 thou/uL (130-400); RBC Distribution Width 12.5 % (11.5-14.5); Red Blood Cell (RBC) Count 3.63 mill/uL (4.70-6.10); White Blood Cell (WBC) Count 6.6 thou/uL (4.8-10.8)
[2021-04-10] MEDS ORDERED: Acetaminophen 500 MG TAB ONE (07:48)
[2021-04-10 07:49] LABS: ALT (SGPT) Less than 7 U/L (8-55); AST (SGOT) 14 U/L (5-34); Albumin 3.7 g/dL (3.5-5.0); Alkaline Phosphatase 62 U/L (40-110); Anion Gap 14 mmol/L (10-20); BUN (Urea Nitrogen) 14 mg/dL (8.4-25.7); Bilirubin, Total 0.6 mg/dL (0.2-1.2); Calc. Creatinine Clearance 0 mL/min (70-130); Calcium 8.2 mg/dL (7.8-10.44); Carbon Dioxide 28 mmol/L (22-29); Chloride 100 mmol/L (98-107); Globulin 3.1 g/dL (2.4-3.5); Glucose 87 mg/dL (70-105); Potassium 3.2 mmol/L (3.5-5.1); Protein, Total 6.8 g/dL (6.0-8.3); Sodium 139 mmol/L (136-145)
[2021-04-10 08:58] LABS: CKMB 2.4 ng/mL (0-6.6)
[2021-04-10 10:35] LABS: Troponin I 0.038 ng/mL (< 0.028)
== END 2021-04-10 11:49 | disposition home or self-care (01) ==
LOC: ERS 06:50
DX: R07.89 Other chest pain (principal); I11.0 Hypertensive heart disease with heart failure; I50.9 Heart failure, unspecified; I49.9 Cardiac arrhythmia, unspecified; I48.91 Unspecified atrial fibrillation; E11.9 Type 2 diabetes mellitus without complications; E78.5 Hyperlipidemia, unspecified; K21.9 Gastro-esophageal reflux disease without esophagitis; D64.9 Anemia, unspecified; Z86.718 Personal history of other venous thrombosis and embolism; G20 Parkinson's disease
CPT/HCPCS: 36415; 71045; 80053; 82553; 84484; 85025; 93005

== ENCOUNTER 2021-06-27 03:42 | Emergency (ER) | payer MEDICARE, MEDICAID ==
[2021-06-27 04:30] LABS: #Basophils 0.1 thou/uL (0.0-0.2); #Eosinphils 0.3 thou/uL (0.0-0.7); #Lymphocytes 1.5 thou/uL (1.20-3.40); #Monocytes 0.6 thou/uL (0.11-0.59); #Neutrophils 4.1 thou/uL (1.40-6.50); %Basophils 0.9 % (0.0-1.0); %Lymphocytes 23.4 % (21.0-51.0); %Monocytes 9.6 % (0.0-10.0); %Neutrophils 62.1 % (42.0-75.0); Hemoglobin 11.9 g/dL (14.0-18.0); Mean Corpuscular HGB CONC 32.5 g/dL (32.0-36.0); Mean Corpuscular Hemoglobin 31.8 pg (27.0-31.0); Mean Corpuscular Volume 97.9 fL (78.0-98.0); Mean Platelet Volume 9.5 fL (7.4-10.4); Platelet Count 161 thou/uL (130-400); Red Blood Cell (RBC) Count 3.73 mill/uL (4.70-6.10); White Blood Cell (WBC) Count 6.5 thou/uL (4.8-10.8)
[2021-06-27 04:47] LABS: ALT (SGPT) 9 U/L (8-55); AST (SGOT) 13 U/L (5-34); Albumin 3.8 g/dL (3.5-5.0); Alkaline Phosphatase 74 U/L (40-110); Anion Gap 13 mmol/L (10-20); BUN (Urea Nitrogen) 18 mg/dL (8.4-25.7); Bilirubin, Total 0.6 mg/dL (0.2-1.2); Calc. Creatinine Clearance 0 mL/min (70-130); Calcium 8.4 mg/dL (7.8-10.44); Carbon Dioxide 27 mmol/L (22-29); Chloride 102 mmol/L (98-107); Glucose 85 mg/dL (70-105); Potassium 3.4 mmol/L (3.5-5.1); Protein, Total 6.8 g/dL (6.0-8.3); Sodium 139 mmol/L (136-145)
[2021-06-27 07:28] LABS: Troponin I 0.028 ng/mL (< 0.028)
== END 2021-06-27 09:23 | disposition home or self-care (01) ==
LOC: ERS 03:42
DX: R07.9 Chest pain, unspecified (principal); I48.91 Unspecified atrial fibrillation; I11.0 Hypertensive heart disease with heart failure; I50.9 Heart failure, unspecified; E11.9 Type 2 diabetes mellitus without complications; E78.5 Hyperlipidemia, unspecified; K21.9 Gastro-esophageal reflux disease without esophagitis; Z86.718 Personal history of other venous thrombosis and embolism
CPT/HCPCS: 36415; 71045; 80053; 84484; 85025; 93005; 94760

== ENCOUNTER 2021-10-26 19:15 | Emergency (ER) | payer MEDICARE, OTHER ==
[2021-10-26 19:36] LABS: #Basophils 0.1 thou/uL (0.0-0.2); #Eosinphils 0.2 thou/uL (0.0-0.7); #Lymphocytes 1.6 thou/uL (1.20-3.40); #Monocytes 0.7 thou/uL (0.11-0.59); #Neutrophils 3.9 thou/uL (1.40-6.50); %Basophils 0.9 % (0.0-1.0); %Eosinophils 3.5 % (0.0-10.0); %Lymphocytes 24.8 % (21.0-51.0); %Monocytes 10.8 % (0.0-10.0); Hemoglobin 12.5 g/dL (14.0-18.0); Mean Corpuscular HGB CONC 34.9 g/dL (32.0-36.0); Mean Corpuscular Hemoglobin 34.5 pg (27.0-31.0); Mean Corpuscular Volume 98.7 fL (78.0-98.0); Mean Platelet Volume 9.4 fL (7.4-10.4); Platelet Count 173 thou/uL (130-400); RBC Distribution Width 13.6 % (11.5-14.5); Red Blood Cell (RBC) Count 3.63 mill/uL (4.70-6.10); White Blood Cell (WBC) Count 6.6 thou/uL (4.8-10.8)
[2021-10-26 20:00] LABS: ALT (SGPT) 10 U/L (8-55); AST (SGOT) 19 U/L (5-34); Albumin 3.6 g/dL (3.4-4.8); Alkaline Phosphatase 73 U/L (40-110); Anion Gap 14 mmol/L (10-20); BUN (Urea Nitrogen) 14 mg/dL (8.4-25.7); Bilirubin, Total 0.4 mg/dL (0.2-1.2); Calc. Creatinine Clearance 0 mL/min (70-130); Carbon Dioxide 25 mmol/L (23-31); Chloride 105 mmol/L (98-107); Estimated GFR 76; Globulin 3.1 g/dL (2.4-3.5); Glucose 108 mg/dL (80-115); Potassium 3.8 mmol/L (3.5-5.1); Protein, Total 6.7 g/dL (5.8-8.1); Sodium 140 mmol/L (136-145)
[2021-10-26 20:21] LABS: CKMB 1.7 ng/mL (0-6.6)
[2021-10-26] MEDS ORDERED: Acetaminophen 500 MG TAB ONE (21:03)
[2021-10-26 23:06] LABS: Troponin I 0.027 ng/mL (< 0.028)
== END 2021-10-26 23:03 ==
LOC: ERS 19:15
DX: R07.89 Other chest pain (principal); I48.91 Unspecified atrial fibrillation; E11.9 Type 2 diabetes mellitus without complications; E78.5 Hyperlipidemia, unspecified; K21.9 Gastro-esophageal reflux disease without esophagitis; I10 Essential (primary) hypertension; Z86.718 Personal history of other venous thrombosis and embolism; D64.9 Anemia, unspecified; Z79.84 Long term (current) use of oral hypoglycemic drugs; Z79.899 Other long term (current) drug therapy
CPT/HCPCS: 36415; 71045; 80053; 82553; 84484; 85025; 93005

== ENCOUNTER 2021-10-29 16:44 | Emergency (ER) | payer MEDICARE, OTHER ==
[~2021-10-29 16:44] MED LIST changes: -Fentanyl 100 MCG/2 ML VIAL ONE; +Iopamidol-370 76% 500 ML 1 ML ONE
[2021-10-29 17:18] LABS: #Basophils 0.1 thou/uL (0.0-0.2); #Eosinphils 0.2 thou/uL (0.0-0.7); #Lymphocytes 1.8 thou/uL (1.20-3.40); #Neutrophils 4.7 thou/uL (1.40-6.50); %Basophils 0.8 % (0.0-1.0); %Eosinophils 2.9 % (0.0-10.0); %Monocytes 12.7 % (0.0-10.0); %Neutrophils 60.5 % (42.0-75.0); Hemoglobin 11.9 g/dL (14.0-18.0); Mean Corpuscular HGB CONC 33.9 g/dL (32.0-36.0); Mean Corpuscular Hemoglobin 33.2 pg (27.0-31.0); Mean Corpuscular Volume 98.1 fL (78.0-98.0); Mean Platelet Volume 9.6 fL (7.4-10.4); Platelet Count 177 thou/uL (130-400); RBC Distribution Width 13.8 % (11.5-14.5); Red Blood Cell (RBC) Count 3.58 mill/uL (4.70-6.10); White Blood Cell (WBC) Count 7.7 thou/uL (4.8-10.8)
[2021-10-29 17:38] LABS: ALT (SGPT) 14 U/L (8-55); AST (SGOT) 12 U/L (5-34); Albumin 3.5 g/dL (3.4-4.8); Alkaline Phosphatase 76 U/L (40-110); Anion Gap 16 mmol/L (10-20); BUN (Urea Nitrogen) 12 mg/dL (8.4-25.7); Bilirubin, Total 0.5 mg/dL (0.2-1.2); Calc. Creatinine Clearance 0 mL/min (70-130); Calcium 7.7 mg/dL (7.8-10.44); Carbon Dioxide 26 mmol/L (23-31); Chloride 102 mmol/L (98-107); Estimated GFR 79; Globulin 2.7 g/dL (2.4-3.5); Glucose 85 mg/dL (80-115); Potassium 3.9 mmol/L (3.5-5.1); Protein, Total 6.2 g/dL (5.8-8.1); Sodium 140 mmol/L (136-145)
[2021-10-29] MEDS ORDERED: Acetaminophen 500 MG TAB ONE (18:04)
[2021-10-29] MEDS ORDERED: Ketorolac Tromethamine 30 MG/ML VIAL ONE (19:45)
== END 2021-10-29 20:30 ==
LOC: ERS 16:44
DX: R07.89 Other chest pain (principal); I11.0 Hypertensive heart disease with heart failure; I50.9 Heart failure, unspecified; I48.91 Unspecified atrial fibrillation; E11.9 Type 2 diabetes mellitus without complications; E78.5 Hyperlipidemia, unspecified; K21.9 Gastro-esophageal reflux disease without esophagitis; D64.9 Anemia, unspecified; G20 Parkinson's disease; Z86.718 Personal history of other venous thrombosis and embolism; Z79.82 Long term (current) use of aspirin; Z79.899 Other long term (current) drug therapy
CPT/HCPCS: 36415; 71045; 71275; 80053; 84484; 85025; 85379; 93005; 94760; 96374; J1885; Q9967

== ENCOUNTER 2021-11-25 15:13 | Emergency (ER) | payer MEDICARE, OTHER ==
[2021-11-25] MEDS ORDERED: Morphine 2 MG/ML VIAL ONE (15:38)
[2021-11-25 16:20] LABS: #Basophils 0.1 thou/uL (0.0-0.2); #Eosinphils 0.2 thou/uL (0.0-0.7); #Lymphocytes 1.4 thou/uL (1.20-3.40); #Monocytes 0.7 thou/uL (0.11-0.59); #Neutrophils 5.3 thou/uL (1.40-6.50); %Basophils 0.7 % (0.0-1.0); %Eosinophils 2.5 % (0.0-10.0); %Lymphocytes 18.4 % (21.0-51.0); %Monocytes 9.3 % (0.0-10.0); Hemoglobin 12.7 g/dL (14.0-18.0); Mean Corpuscular Hemoglobin 32.6 pg (27.0-31.0); Mean Platelet Volume 9.8 fL (7.4-10.4); Platelet Count 173 thou/uL (130-400); RBC Distribution Width 13.3 % (11.5-14.5); White Blood Cell (WBC) Count 7.7 thou/uL (4.8-10.8)
[2021-11-25 16:39] LABS: ALT (SGPT) 20 U/L (8-55); AST (SGOT) 14 U/L (5-34); Albumin 3.8 g/dL (3.4-4.8); Alkaline Phosphatase 83 U/L (40-110); Anion Gap 12 mmol/L (10-20); BUN (Urea Nitrogen) 16 mg/dL (8.4-25.7); Bilirubin, Total 0.5 mg/dL (0.2-1.2); Calc. Creatinine Clearance 0 mL/min (70-130); Calcium 8.2 mg/dL (7.8-10.44); Carbon Dioxide 28 mmol/L (23-31); Chloride 104 mmol/L (98-107); Estimated GFR 84; Globulin 2.8 g/dL (2.4-3.5); Glucose 108 mg/dL (80-115); Lipase 51 U/L (8-78); Protein, Total 6.6 g/dL (5.8-8.1); Sodium 140 mmol/L (136-145)
[2021-11-25 17:01] LABS: CKMB 2.4 ng/mL (0-6.6)
[2021-11-25] MEDS ORDERED: Lorazepam 2 MG/ML VIAL ONE (18:21)
[2021-11-25] MEDS ORDERED: Nitroglycerin 0.4 MG TAB 1 EACH ONE (19:45)
[2021-11-25 19:53] LABS: Bilirubin Negative (Negative); Blood, Urine Negative (Negative); Clarity Extra Turbid (Clear); Glucose, Urine (Dipstick) 500 mg/dL (Negative); Ketone, Urine Negative (Negative); Leukocyte 250 Leu/uL (Negative); Nitrite 1+ (Negative); Protein, Urine (Dipstick) 70 mg/dL (Neg-Trace); Specific Gravity, Urine 1.025 (1.002-1.036); Urobilinogen Normal mg/dL (Less than 2)
[2021-11-25 19:59] LABS: Bacteria/HPF 4+ HPF (None Seen); RBC/HPF 0-3 HPF (0-3); Yeast-Budding 2+ HPF (None Seen)
[2021-11-25 20:00] LABS: Squamous Epithelial 0-3 HPF (0-3)
[2021-11-25 22:07] LABS: CKMB 2.1 ng/mL (0-6.6)
== END 2021-11-25 22:25 ==
LOC: ERS 15:13
DX: R07.9 Chest pain, unspecified (principal); N39.0 Urinary tract infection, site not specified; I48.91 Unspecified atrial fibrillation; E11.9 Type 2 diabetes mellitus without complications; I10 Essential (primary) hypertension; K21.9 Gastro-esophageal reflux disease without esophagitis; Z79.899 Other long term (current) drug therapy
CPT/HCPCS: 71045; 80053; 82553; 83690; 84484 ×2; 85025; 93005; 96374; 96375; 99285; J2270; 36415; 81003; 81015; J2060

== ENCOUNTER 2022-06-04 18:12 | Emergency (ER) | payer MEDICARE, OTHER ==
[2022-06-04] MEDS ORDERED: Ondansetron ODT 4 MG TAB ONE (19:16)
[2022-06-04] MEDS ORDERED: Acetaminophen 500 MG TAB ONE (19:16)
== END 2022-06-04 21:57 ==
LOC: ERS 18:12
DX: S06.9X9A Unspecified intracranial injury with loss of consciousness of unspecified duration, initial encounter (principal); S16.1XXA Strain of muscle, fascia and tendon at neck level, initial encounter; S01.81XA Laceration without foreign body of other part of head, initial encounter; I11.0 Hypertensive heart disease with heart failure; I50.9 Heart failure, unspecified; I48.91 Unspecified atrial fibrillation; E11.9 Type 2 diabetes mellitus without complications; E78.00 Pure hypercholesterolemia, unspecified; K21.9 Gastro-esophageal reflux disease without esophagitis; D64.9 Anemia, unspecified; I25.2 Old myocardial infarction; G20 Parkinson's disease; W05.0XXA Fall from non-moving wheelchair, initial encounter; Z86.718 Personal history of other venous thrombosis and embolism; Z79.82 Long term (current) use of aspirin; Z79.899 Other long term (current) drug therapy
CPT/HCPCS: 12013; 70450; 72125; Q0162

== ENCOUNTER 2023-08-05 15:00 | Emergency (ER) | payer MEDICARE, OTHER ==
[2023-08-05] MEDS ORDERED: Boostrix 0.5 ML (Tdap) VIAL (>/=7 yrs of age) ONE (16:34)
== END 2023-08-05 17:15 | disposition home or self-care (01) ==
LOC: ERS 15:00
DX: S00.01XA Abrasion of scalp, initial encounter (principal); E78.5 Hyperlipidemia, unspecified; I11.0 Hypertensive heart disease with heart failure; I50.9 Heart failure, unspecified; E11.9 Type 2 diabetes mellitus without complications; Z79.82 Long term (current) use of aspirin; Z79.899 Other long term (current) drug therapy; W19.XXXA Unspecified fall, initial encounter
CPT/HCPCS: 70450; 72125; 90471; 90715

== ENCOUNTER 2023-08-17 17:48 | Emergency (ER) | payer MEDICARE, OTHER ==
[2023-08-17] MEDS ORDERED: Lidocaine 1% w/Epinephrine 1:100K 20 ML VIAL ONE (18:06)
== END 2023-08-17 18:39 | disposition home or self-care (01) ==
LOC: ERS 17:48
DX: L76.22 Postprocedural hemorrhage of skin and subcutaneous tissue following other procedure (principal); Z48.00 Encounter for change or removal of nonsurgical wound dressing; I48.0 Paroxysmal atrial fibrillation; E11.9 Type 2 diabetes mellitus without complications; I11.0 Hypertensive heart disease with heart failure; I50.9 Heart failure, unspecified; I25.2 Old myocardial infarction
CPT/HCPCS: 12011; 93005